=== PATIENT | female | born 1955 | race Caucasian/White ===

== ENCOUNTER 2020-04-01 09:00 | Outpatient (RCR) | payer OTHER, SELFPAY ==
--- NOTE | 2020-04-22 11:18 | MHC.PT.DC ---
[facility] [place] [facility] [place] [facility] [place] [facility] [address] Travon Murcia 140 [facility] [phone] F: [phone] F: [phone] F: [phone] F: [phone] Physical Therapy Discharge Report Diagnosis: TKA Date of Surgery: 01/16/2020 Date of Evaluation: 02/11/20 Date of Discharge: 04/22/20 Treatments to Date: 15 Cancellations to Date: 2 No Shows to Date: 0 Discharge Status: Improved Function Independent with HEP Discharge Summary: The patient has followed up with orthopedics who has cleared her for work with no restrictions. She was given a home exercise program that focused on quadriceps strengthening as that is what she struggled with the most during physical therapy. She has improved in her strength, range of motion, and functional mobility. She is discharged from this physical therapy plan of care. Electronically signed by: Penny Barriga PT, DPT Please sign and return to therapist. Thank you for your referral.
== END 2020-04-22 11:27 | disposition other institution (70) ==
LOC: HO.PT 09:00
PROVIDERS: Visit Provider Physician Assistant
DX: Z47.1 Aftercare following joint replacement surgery (principal); Z96.651 Presence of right artificial knee joint
CPT/HCPCS: 97110; 97530

== ENCOUNTER 2020-04-10 10:00 | Outpatient (RCR) | payer OTHER, SELFPAY | END 2020-04-22 11:26 | disposition other institution (70) | LOC: HO.PT 10:00 | PROVIDERS: PCP Internal Medicine; Visit Provider Physician Assistant | DX: Z47.1 Aftercare following joint replacement surgery (principal); Z96.651 Presence of right artificial knee joint ==

== ENCOUNTER 2020-06-26 08:45 | Outpatient (REF) | payer OTHER, SELFPAY ==
--- NOTE | 2020-06-26 13:28 | XR_ITS ---
EXAMINATION: XR PELVIS CLINICAL INFORMATION: Pain. COMPARISON: 12/15/16. TECHNIQUE: AP view of the pelvis. FINDINGS: Severe degenerative changes are present in both hips more marked on the left. There is prominent joint space narrowing with subchondral bony sclerosis. Prominent marginal osteophytosis. There is subluxation of both hips more marked on the left. No acute abnormality. XR/XR pelvis 1-2V IMPRESSION: Severe degenerative changes both hips with interval progression from prior examination.
== END 2020-06-26 08:46 | disposition home or self-care (01) ==
LOC: HO.HOSX 08:45
PROVIDERS: Visit Provider Orthopaedic Surgery
DX: M25.552 Pain in left hip (principal); M25.551 Pain in right hip
CPT/HCPCS: 20610; 72170; J1040

== ENCOUNTER → 2020-09-15 13:55 | Outpatient (BNVA) | payer OTHER, SELFPAY | PROVIDERS: Visit Provider Orthopaedic Surgery ==

== ENCOUNTER 2020-10-31 08:26 | Outpatient (REF) | payer OTHER, SELFPAY ==
[2020-10-31 10:12] LABS: MANUAL DIFF FLAG NO
[2020-10-31 10:18] LABS: Basophils Percent Auto 0.5 % (0-2); Eosinophils Absolute Auto 0.1 X10*3/uL (0.0-0.4); Eosinophils Percent Auto 2.2 % (0-4); Hematocrit 37.4 % (37-47); Hemoglobin 12.3 g/dl (12.0-16.0); Imm Gran Abs Auto 0.01 X10*3/uL (0.00-0.03); Imm Gran Pct Auto 0.2 % (0.0-0.4); Lymphocytes Absolute Auto 2.1 X10*3/uL (1.2-4.9); Lymphocytes Percent Auto 34.9 % (20-40); Mean Corpuscular HGB Conc 32.9 g/dl (31.0-35.0); Mean Corpuscular Hemoglobin 30.8 pg (27.0-33.0); Mean Corpuscular Volume 93.5 fL (80-98); Mean Platelet Volume 10.4 fL (9.4-12.3); Monocytes Absolute Auto 0.4 X10*3/uL (0.1-1.2); Monocytes Percent Auto 6.6 % (2-11); Neutrophils Absolute Auto 3.3 X10*3/uL (2.0-8.3); Neutrophils Percent Auto 55.6 % (45-73); Platelet Count 220 X10*3/uL (160-400); Red Cell Distribution Width 12.7 % (11.0-16.0); White Blood Count 5.9 X10*3/uL (4.8-10.8)
[2020-10-31 10:36] LABS: Anion Gap 14 (12-20); Blood Urea Nitrogen 13 mg/dL (9-16); Calcium 9.4 mg/dL (8.4-10.2); Carbon Dioxide 26 mmol/L (22-29); Chloride 105 mmol/L (96-108); Estimated Glomerular Filt Rate > 60; Glucose Random 100 mg/dL (60-115); Sodium 141 mmol/L (135-145)
== END 2020-10-31 08:27 | disposition home or self-care (01) ==
LOC: HO.10HDL 08:26
PROVIDERS: Absent Provider Internal Medicine; Visit Provider Orthopaedic Surgery
DX: Z01.812 Encounter for preprocedural laboratory examination (principal)
CPT/HCPCS: 36415; 80048; 85025

== ENCOUNTER 2020-11-04 | Outpatient (REF) | payer OTHER, SELFPAY | END 2020-11-04 00:01 | disposition home or self-care (01) | LOC: HO.HOSX | PROVIDERS: Visit Provider Orthopaedic Surgery | DX: Z13.89 Encounter for screening for other disorder (principal) ==

== ENCOUNTER 2020-11-12 07:46 | Outpatient (REF) | payer OTHER, SELFPAY ==
--- NOTE | ~2020-11-12 | XR_ITS ---
EXAMINATION: XR HIP, LEFT CLINICAL INFORMATION: Left hip pain COMPARISON: Pelvis 11/04/2020 TECHNIQUE: Two views of the left hip. FINDINGS: There is moderate loss of left hip joint space with moderate periarticular spurring. The small bowel subchondral lucency superolateral femoral head. No visible fracture, dislocation or lytic process seen. The soft tissues are normal. XR/XR hip LT min 2V IMPRESSION: Moderate to severe degenerative arthritis left hip joint with moderate periarticular spurring and subchondral lucency. No visible acute fracture or dislocation seen.
== END 2020-11-12 07:47 | disposition home or self-care (01) ==
LOC: HO.HOSX 07:46
PROVIDERS: Visit Provider Physician Assistant
DX: Z01.818 Encounter for other preprocedural examination (principal); M16.12 Unilateral primary osteoarthritis, left hip; Z98.84 Bariatric surgery status
CPT/HCPCS: 73502

== ENCOUNTER 2020-11-18 08:17 | Inpatient (IN) | payer OTHER, SELFPAY ==
--- NOTE | 2020-11-04 | ECG_ITS ---
Test Reason : PREOP Blood Pressure : / mmHG Vent. Rate : 055 BPM Atrial Rate : 055 BPM P-R Int : 154 ms QRS Dur : 076 ms QT Int : 436 ms P-R-T Axes : 087 032 019 degrees QTc Int : 417 ms Sinus bradycardia Otherwise normal ECG When compared to the previous EKG of No significant changes seen Referred By: Nicolle Martino Electronically Signed By:Hima Jones
--- NOTE | 2020-11-04 12:22 | P.CONAN_ITS ---
Documented by User: Nicolle Peckney 11/17/20 09:32 HPI - Anesthesia Eval Consult details Narrative: 65yo F for Left Hip Total Replacement PCP cleared afib, no OAC PMFSH Active Problems Active Problems: All Active Problems (Updated 11/03/20 @ 10:09 by Sydnie Prasad) Total knee replacement status (Acute) Osteoarthritis of left hip (Acute) Past Medical History Medical History (Updated 11/12/20 @ 14:09 by Steffany Card PA-C) A-fib COVID-19 vaccine series completed History of cardioversion History of positive PPD On beta hina at home Osteoarthritis Family History Family History Father No problems noted. Mother No problems noted. Surgical History Surgical History (Updated 11/04/20 @ 14:06 by Sydnie Prasad) History of cardiac radiofrequency ablation History of total left knee replacement History of total right knee replacement Hx of section Hx of colonoscopy Hx of gastric bypass Social History Social History Are you a primary hospice spiritual care coordinator to a significant other at home: No Do you presently have visiting nurse or other home services: No Smoking Status: Former smoker Smoking Quit Date: 15 yrs ago Use of substances other than those prescribed or required for medical reasons: No Have you been hit, kicked, punched, or otherwise hurt by someone within the past year? 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 Allergies Allergy/AdvReac Type Severity Reaction Status Date / Time Penicillins [PENICILLINS] Allergy Intermediate TONGUE Verified 11/03/20 09:55 SWELLING,SKIN PEELING ON FINGERS Home Medications Medication Instructions Recorded Confirmed Last Taken Type metoprolol succinate 25 mg 25 mg PO DAILY 04/10/20 11/18/20 11/18/20 History tablet,extended release 24 hr Exam Exam Date and Time: November 04, 2020 1222 Pertinent Lab Results Pertinent Lab Results: Laboratory Tests 10/31/20 10/31/20 08:20 08:20 WBC 5.9 Hgb 12.3 Hct 37.4 Plt Count 220 Sodium 141 Potassium 4.0 Chloride 105 Carbon Dioxide 26 BUN 13 Creatinine 0.70 Lab Results 11/04/20 11/04/20 Range/Units 15:55 Unknown Nasal Screen MRSA (PCR) NEGATIVE (Negative) Nasal S. aureus Screen NEGATIVE (Negative) Nasal MRSA/S.aureus Interp SEE NOTE Blood Type O Positive Antibody Screen NEGATIVE Narrative Narrative: EKG 10/2020 Vent. Rate : 055 BPM Atrial Rate : 055 BPM P-R Int : 154 ms QRS Dur : 076 ms QT Int : 436 ms P-R-T Axes : 087 032 019 degrees QTc Int : 417 ms Sinus bradycardia Otherwise normal ECG When compared to the previous EKG of No significant changes seen Airway Mallampati Class: I TM Dist: >3cm Neck ROM: Full Loose/Missing/Broken Teeth: Yes (Missing molars) Heart: RRR Lungs: CTAB Assessment and Plan Assessment Anesthesia Assessment: Anesthesia Plan Discussed (GA vs Spinal, ? Nerve block) and PAT Visit Documented by User: Brayan Rasheed MD 11/18/20 11:06 [facility] Past Medical History Medical History (Updated 11/12/20 @ 14:09 by Steffany Card PA-C) A-fib COVID-19 vaccine series completed History of cardioversion History of positive PPD On beta hina at home Osteoarthritis Family History Family History Father No problems noted. Mother No problems noted. Surgical History Surgical History (Updated 11/04/20 @ 14:06 by Sydnie Prasad) History of cardiac radiofrequency ablation History of total left knee replacement History of total right knee replacement Hx of section Hx of colonoscopy Hx of gastric bypass Social History Social History Are you a primary hospice spiritual care coordinator to a significant other at home: No Do you presently have visiting nurse or other home services: No Smoking Status: Former smoker Smoking Quit Date: 15 yrs ago Use of substances other than those prescribed or required for medical reasons: No Have you been hit, kicked, punched, or otherwise hurt by someone within the past year? 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 Allergies Allergy/AdvReac Type Severity Reaction Status Date / Time Penicillins [PENICILLINS] Allergy Intermediate TONGUE Verified 11/03/20 09:55 SWELLING,SKIN PEELING ON FINGERS Home Medications Medication Instructions Recorded Confirmed Last Taken Type metoprolol succinate 25 mg 25 mg PO DAILY 04/10/20 11/18/20 11/18/20 History tablet,extended release 24 hr Assessment and Plan Assessment Anesthesia Assessment: Anesthesia Plan Discussed and Chart Reviewed Final Anesthetic Review NPO: Yes ASA Class: III Final Preanesthetic Review: No Changes in Pt Med Stat, Meds/Allgs Chart Reviewed, Consent Obtained/Reviewed and Anes Risks/Benef Reviewed Patient Risk: Intermediate Procedure Risk: Low Anesthetic Plan Anesthetic Plan: MAC: and Spinal Disposition: Standard PACU
[2020-11-04 14:07] VITALS: BMI 31.3
[2020-11-04 14:12] VITALS: BP 127/80; PULSE 96; RESP 20; O2SAT 97
[2020-11-05 09:46] LABS: MRSA Nasal PCR NEGATIVE (Negative); SA Nasal PCR NEGATIVE (Negative)
--- NOTE | 2020-11-05 10:36 | HP_ITS ---
DATE OF SERVICE: 11/18/2020 HISTORY OF PRESENT ILLNESS: The patient is a 65-year-old female scheduled for left hip replacement with Dr. Asencio on November 18. ALLERGIES: THE PATIENT LISTS AN ALLERGY TO PENICILLIN. MEDICATIONS: Her present medications are metoprolol-XL 25 mg once a day and metronidazole cream as needed. PAST MEDICAL HISTORY: Significant for both knees replaced; arthritis in both hips; hypertension; rosacea; history of atrial fibrillation, status post ablation; history gastric sleeve procedure; x2; osteoarthritis; hay fever. FAMILY HISTORY: Mother at 89. Father at 72. Two sisters, 1 has schizophrenia. Two children in good health. SOCIAL HISTORY: She is , lives alone. REVIEW OF SYSTEMS: Weight is up 6 pounds. No fevers or chills. No chest pains or palpitations. No shortness of breath. No peripheral edema. No headaches or dizziness. No heartburn or stomach pains. No dysuria. She has pain in both hips. Sleeping is disrupted because of the arthritis in the hips. No confusion or mental status changes. Appetite is normal. Some allergic rhinitis. No skin rashes. No bleeding problems. PHYSICAL EXAMINATION: GENERAL: She is awake and alert, in no distress. VITAL SIGNS: Temperature is 98.1, pulse 67, respiratory rate 12, blood pressure 116/84, oxygen is 99% on room air. Weight is 222. Height is 5 feet 9 inches. HEENT: Pupils equal. TMs clear. Pharynx clear. NECK: Supple. No lymph nodes, bruits, or masses. HEART: Sounds S1 and S2. Regular rate. LUNGS: Clear. ABDOMEN: Soft, nontender. Positive bowel sounds. No HSM. EXTREMITIES: No clubbing, cyanosis, or edema. 1+ pulses. NEUROLOGICAL: Exam is nonfocal. Cranial nerves II through XII are intact. She does not smoke. ASSESSMENT AND PLAN: She is medically stable for the proposed procedure. Labs were drawn in the hospital and an EKG is being done within the next week or so, pending review of those. She is medically stable for the proposed procedure. I will be available if there are any medical questions. Thank you very much. Eduardo Daigle MD FC/MODL / [id number]
[2020-11-18] VITALS (12 sets, daily range): BP systolic 91–125; BP diastolic 50–73; PULSE 45–85; RESP 12–18; TEMP 36.1–36.7; O2SAT 96–100
--- NOTE | ~2020-11-18 | XR_ITS ---
EXAMINATION: XR PELVIS CLINICAL INFORMATION: Post left hip replacement COMPARISON: Previous x-ray 11/12/2020 TECHNIQUE: AP view of the pelvis. FINDINGS: There is a new left hip replacement in satisfactory position. No fracture or dislocation is seen. There are postoperative changes to the soft tissues. There is arthritis at the right hip joint. XR/XR pelvis 1-2V IMPRESSION: Satisfactory appearance of left hip replacement.
--- NOTE | ~2020-11-18 | XR_ITS ---
EXAMINATION: XR PELVIS CLINICAL INFORMATION: Arthritis COMPARISON: Previous x-ray May 2020 TECHNIQUE: AP view of the pelvis. FINDINGS: There is bilateral hip arthritis with joint space narrowing, osteophyte formation and on the left, subchondral cyst formation. Bones of the pelvis are unremarkable. There are degenerative changes of the lower lumbar spine. Soft tissues are unremarkable. XR/XR pelvis 1-2V IMPRESSION: Bilateral hip arthritis, left greater than right
[2020-11-18 09:12] LABS: COVID-19 Test Negative (Negative)
[2020-11-18] MEDS: Gabapentin 600 MG TABLET PO (09:21)
[2020-11-18] MEDS: oxyCODONE HCl ER 10 MG TAB.ER.12H PO ×2 (09:21→20:38)
[2020-11-18] MEDS: vancomycin HCL 1,000 MG in 0.9 % Sodium Chloride 250 ML 270 MG IV ×2 (09:46→20:38)
--- NOTE | 2020-11-18 10:34 | MHC.SHP ---
Pre-Procedural Eval Section A The patient is an INPATIENT: No Changes since office visit: Yes Patient answered all questions; No Cold of Flu in the past 2 weeks, No New Medical Problems and No Changes in Medication The History & Physical has been completed within 30 days and I have reviewed it.: Yes Section B Chief Complaint: S/P LEFT TOTAL HIP REPLACEMENT Allergies: Allergies Allergy/AdvReac Type Severity Reaction Status Date / Time Penicillins [PENICILLINS] Allergy Intermediate TONGUE Verified 11/03/20 09:55 SWELLING,SKIN PEELING ON FINGERS Plan I have reviewed the history and physical and performed a pertinent physical examination on my patient. No changes have occurred unless specified.
--- NOTE | 2020-11-18 13:13 | P.BOP_ITS ---
Brief Operative Note Date of Service: 11/18/20 Pre-op diagnosis: left hip OA Post-op diagnosis: same Procedure: Left DON Implants: Cornelius 54 trident with 20 deg liner and accolade2#7 127deg stem with + 5 36 ceramic head Surgeon: Yohan Asencio MD Anesthesia: GETA, local and spinal Was an Fire Sprinkler Installer used for this Procedure?: Yes Fire Sprinkler Installer: Steffany Card Estimated blood loss (mL): 200 IV fluids (mL): 1,200 Pathology: other Condition: stable Disposition: PACU
--- NOTE | 2020-11-18 13:46 | W.PM.OPN ---
Operative Note Operative Note Date of Service: 11/18/20 Narrative: Pre-op diagnosis: left hip OA Post-op diagnosis: same Procedure: Left DON Implants: Turpin 54 trident with 20 deg liner and accolade2#7 127deg stem with + 5 36 ceramic head Surgeon: Yohan Asencio MD Anesthesia: GETA, local and spinal Was an Air Quality Specialist used for this Procedure?: Yes Air Quality Specialist: Steffany Card Estimated blood loss (mL): 200 IV fluids (mL): 1,200 Pathology: other Condition: stable Disposition: PACU Procedure in detail: Patient was brought into the operating room and placed in a right lateral decubitus position. All bony prominences were well padded and the limb was prepped and draped in standard sterile fashion. Time-out was called to identify proper site procedure proper surgeon IV antibiotics and 1 g of trans to make acid were administered. I began by making a curvilinear incision over the posterolateral aspect of the greater trochanter. Dissection was taken down to the tensor fascia which was incised in line with the incision and a Charnley retractor was placed. Hip was internally rotated and the external rotators were identified. The vessels were cauterized and a full-thickness capsular/external rotator layer was developed starting just proximal to the piriformis. Dull Hohmann retractor was placed underneath the neck in the hip was dislocated. A neck cut was made 1 cm proximal to the lesser trochanter and the head and neck were removed and measured on the back table. The head was deformed and eburnated. I placed an anterior and a posterior acetabular retractors and performed a labrectomy. I cauterized the fovea and reamed to the inner table then sequentially reamed up to a size 56 and impacted a 56 cup at approximately 45 degrees of inclination and 25 degrees of version. I then placed a 20 degree posterior lipped liner and turned my attention to the femur. All I used cautery to identify the piriformis start site and used this as a starting point for my dago cutter. I then used a Charnley awl to identify the canal and a curved curette to remove the lateral bone. I then sequentially broached in the patient's natural version to a size ____ had and placed my trial implants. I took the hip through range of motion with a +0 head and I was very happy with the stability and length. Therefore removed all instrumentation copiously irrigated placed my final femoral implant. I again took the hip through range of motion and was happy with the stability and length and rain using a +0 head and so my final femoral head was placed. I then irrigated for 3 minutes with iodine and placed 1 g of local TXA. I then performed a capsular closure with FiberWire, Krista's fascia with 0 Vicryl, subcuticular with 2-0 vicryl and skin with carl. Patient was placed into a sterile dressing. Radiographs were obtained at the completion of the case and I was happy with the component position. Patient was extubated brought to the recovery room in stable condition.
[2020-11-18] MEDS: Dextrose 5 % and 0.45 % NaCl 1,000 ML 80 ML IVCONT (15:57)
[2020-11-18] MEDS: 0.9 % Sodium Chloride Flush 3 ML SYRINGE IVFLUSH (15:57)
--- NOTE | 2020-11-18 16:08 | PM.IMCN ---
History of Present Illness Data of Consult Service Date: 11/18/20 Requesting physician: Yohan Asencio Primary Care Provider: Flo Daigle MD [facility] Reason for consult: Post-operative medical management This is a 65-year-old female with a past medical history of paroxysmal AFib, status post ablation not on any anticoagulation, obesity status post gastric sleeve procedure about 5 years ago, osteoarthritis status post bilateral knee replacements who is postop from a elective left hip replacement. Medical services are consulted for management of her chronic medical issues as well as any acute issues that arise. Patient is seen examined on med surge. She denies any left hip pain at this time. In fact denies any complaints at all. Review of Systems Review of Systems: General - no fevers or chills Cardiovascular - no chest pain Respiratory - no shortness of breath or cough Abdominal- no abdominal pain, nausea, vomiting, diarrhea Ext - pain controlled PMF Medical History (Updated 11/18/20 @ 16:27 by Azael Mc MD) A-fib COVID-19 vaccine series completed History of cardioversion History of positive PPD On beta hina at home Osteoarthritis Family History Father No problems noted. Mother No problems noted. Surgical History (Updated 11/04/20 @ 14:06 by Sydnie Prasad) History of cardiac radiofrequency ablation History of total left knee replacement History of total right knee replacement Hx of section Hx of colonoscopy Hx of gastric bypass Social History Are you a primary career development coordinator/teacher to a significant other at home: No Do you presently have visiting nurse or other home services: No Smoking Status: Former smoker Smoking Quit Date: 15 yrs ago Use of substances other than those prescribed or required for medical reasons: No Have you been hit, kicked, punched, or otherwise hurt by someone within the past year? 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 Allergies Allergy/AdvReac Type Severity Reaction Status Date / Time Penicillins [PENICILLINS] Allergy Intermediate TONGUE Verified 11/03/20 09:55 SWELLING,SKIN PEELING ON FINGERS Active Medications: Current Medications Generic Name Dose Route Start Last Admin Trade Name Freq PRN Reason Stop Dose Admin Acetaminophen 650 mg 11/18/20 15:33 Acetaminophen 325 Mg Tablet PO Q6H PRN Pain, Mild (Pain Scale 1-3) Celecoxib 200 mg 11/18/20 21:00 Celecoxib 200 Mg Capsule PO BID [facility] Docusate Sodium 100 mg 11/18/20 21:00 Docusate Sodium 100 Mg Capsule PO BID [facility] Hydromorphone HCl 0.25 mg 11/18/20 15:33 Hydromorphone Hcl 0.5 Mg/0.5 Ml Syringe IVPUSH Q4H PRN Pain, Severe (Pain Scale 7-10) Dextrose/Sodium Chloride 1,000 mls @ 80 mls/hr 11/18/20 15:33 11/18/20 15:57 D51/2ns IVCONT 80 mls/hr .[id number] [facility] Administration Vancomycin HCl 1,000 mg/ 270 mls @ 270 mls/hr 11/18/20 20:00 Sodium Chloride IV 11/18/20 20:59 POSTOP ONE Naloxone HCl 0.2 mg 11/18/20 15:33 Naloxone Hcl 0.4 Mg/Ml Vial IVPUSH Q2M PRN Excessive sedation or RR < 8 Ondansetron HCl 4 mg 11/18/20 15:33 Ondansetron Hcl 4 Mg/2 Ml Vial IVPUSH Q8H PRN Nausea and Vomiting Oxycodone HCl 5 mg 11/18/20 15:33 Oxycodone Hcl Immed Release 5 Mg Tablet PO Q4H PRN Pain, Moderate (Pain Scale 4-6 Oxycodone HCl 10 mg 11/18/20 21:00 Oxycodone Hcl Er 10 Mg Tab.Er.12h PO BID [facility] Sodium Chloride 3 ml 11/18/20 16:00 11/18/20 15:57 0.9 % Sodium Chloride Flush 3 Ml Syringe IVFLUSH 3 ml QSHIFT [facility] Administration Home Medications Medication Instructions Recorded Confirmed Last Taken Type metoprolol succinate 25 mg 25 mg PO DAILY 04/10/20 11/18/20 11/18/20 History tablet,extended release 24 hr Physical Exam Vital Signs and Narrative: Vital Signs: Last Vital Signs Temp 97.1 F 11/18/20 15:22 Pulse 51 11/18/20 15:22 Resp 17 11/18/20 15:22 BP 110/66 11/18/20 15:22 Pulse Ox 100 11/18/20 15:22 Body Mass Index 31.3 Const: Other: Constitutional - Awake and Alert, No apparent distress Eyes - PERRLA, EOMI Cardiovascular - S1S2, RRR, No edema Respiratory - Normal lung expansion, Normal respiratory effort, No respiratory distress, CTA bilaterally Gastrointestinal - NT / ND; +BS; No rebound or guarding - No CVA tenderness Extremities - no calf tenderness bilaterally, no swelling Musculoskeletal - Normal inspection, normal ROM Skin - Warm/Dry Neurological - Alert & oriented x3, No focal deficit Psychological - Appropriate affect Results Labs Labs: Laboratory Results - last 24 hr 11/18/20 08:41 COVID-19 ([facility]) Negative COVID-19 Clin Com See Note Imaging Radiologist's Impressions: Impressions Pelvis X-Ray 11/18/20 11:49 IMPRESSION: Satisfactory appearance of left hip replacement. Assessment and Plan (1) PAF (paroxysmal atrial fibrillation): Status: Acute This is a 65-year-old female with a past medical history of paroxysmal AFib, gastric sleeve, osteoarthritis who is admitted under the Orthopedic Services for elective left hip replacement. Medical services are consulted for management of her chronic medical issues along with any acute issues that may arise. At this time she is medically stable 1. Paroxysmal AFib Continue metoprolol 25 mg daily Currently appears to be in sinus on exam 2.OA s/p L DON mgmt per ortho monitor for post op complications DVT ppt - per ortho Medically stable, will follow peripherally. If any further questions re-consult or send message on [facility].
[2020-11-18] MEDS: HYDROmorphone HCl 0.5 MG/0.5 ML SYRINGE 0.25 MG IVPUSH (18:38)
[2020-11-18] MEDS: Docusate Sodium 100 MG CAPSULE PO (20:38)
[2020-11-18] MEDS: Celecoxib 200 MG CAPSULE PO (20:38)
[2020-11-19] VITALS (10 sets, daily range): BP systolic 80–119; BP diastolic 43–60; PULSE 68–78; RESP 16–20; TEMP 36.1–37.4; O2SAT 96–98
[2020-11-19] MEDS: oxyCODONE HCl Immed Release 5 MG TABLET PO ×2 (03:37→13:54)
[2020-11-19] MEDS: Acetaminophen 325 MG TABLET 650 MG PO ×2 (03:37→09:03)
[2020-11-19] MEDS: Dextrose 5 % and 0.45 % NaCl 1,000 ML 80 ML IVCONT ×2 (04:51→18:34)
[2020-11-19 06:13] LABS: MANUAL DIFF FLAG NO
[2020-11-19 06:34] LABS: Basophils Percent Auto 0.2 % (0-2); Eosinophils Percent Auto 0.3 % (0-4); Hematocrit 28.7 % (37-47); Hemoglobin 9.7 g/dl (12.0-16.0); Imm Gran Abs Auto 0.03 X10*3/uL (0.00-0.03); Imm Gran Pct Auto 0.3 % (0.0-0.4); Lymphocytes Absolute Auto 1.8 X10*3/uL (1.2-4.9); Lymphocytes Percent Auto 20.6 % (20-40); Mean Corpuscular HGB Conc 33.8 g/dl (31.0-35.0); Mean Corpuscular Hemoglobin 30.7 pg (27.0-33.0); Mean Corpuscular Volume 90.8 fL (80-98); Mean Platelet Volume 10.1 fL (9.4-12.3); Monocytes Absolute Auto 0.8 X10*3/uL (0.1-1.2); Neutrophils Absolute Auto 6.1 X10*3/uL (2.0-8.3); Neutrophils Percent Auto 69.6 % (45-73); Platelet Count 173 X10*3/uL (160-400); Red Blood Count 3.16 X10*6/uL (4.20-5.50); Red Cell Distribution Width 12.8 % (11.0-16.0); White Blood Count 8.7 X10*3/uL (4.8-10.8)
[2020-11-19 06:52] LABS: Anion Gap 13 (12-20); Blood Urea Nitrogen 10 mg/dL (9-16); Calcium 8.1 mg/dL (8.4-10.2); Carbon Dioxide 25 mmol/L (22-29); Chloride 102 mmol/L (96-108); Creatinine Clr Calc Pharmacy 111.8; Estimated Glomerular Filt Rate > 60; Glucose Fasting 112 mg/dL (60-99); Potassium 3.8 mmol/L (3.3-5.1); Sodium 136 mmol/L (135-145)
--- NOTE | 2020-11-19 07:51 | PM.PNORT ---
Subjective Subjective Date of Service: 11/19/20 Interval history: POD 1 s/p LT DON no overnight events resting in bed, has been out of bed ambulating denies sob, cp, palpitations Physical Exam Vital Signs: Vital Signs: Last Vital Signs Temp 97.8 F 11/19/20 03:41 Pulse 73 11/19/20 07:34 Resp 16 11/19/20 03:41 BP 96/60 11/19/20 07:34 Pulse Ox 98 11/19/20 07:34 Body Mass Index 31.3 Const: General: cooperative, healthy appearing and no acute distress Resp: Effort & Inspection: normal respiratory effort and able to speak in complete sentences Cardio: Rate: regular rate Peripheral pulses: Peripheral pulses 2+ throughout GI: Palpation (GI): Soft to palpation Skin: General skin exam: no rashes or lesions noted Extrem: Other: Left hip bandage clean dry and intact. No erythema or drainage. Mild swelling. Neurovascularly intact. Progress Note: A&P Assessment and plan (1) History of total left hip replacement: Status: Acute Assessment and Plan: Continue pain mgmnt Begin Aspirin for dvt ppx begin PT for LT DON Dispo planning-Pending PT eval, pain mgmnt Fall Risk Details Current Medications: Current Medications Generic Name Dose Route Start Last Admin Trade Name Freq PRN Reason Stop Dose Admin Acetaminophen 650 mg 11/18/20 15:33 11/19/20 03:37 Acetaminophen 325 Mg Tablet PO 650 mg Q6H PRN Administration Pain, Mild (Pain Scale 1-3) Celecoxib 200 mg 11/18/20 21:00 11/18/20 20:38 Celecoxib 200 Mg Capsule PO 200 mg BID [facility] Administration Docusate Sodium 100 mg 11/18/20 21:00 11/18/20 20:38 Docusate Sodium 100 Mg Capsule PO 100 mg BID [facility] Administration Hydromorphone HCl 0.25 mg 11/18/20 15:33 11/18/20 18:38 Hydromorphone Hcl 0.5 Mg/0.5 Ml Syringe IVPUSH 0.25 mg Q4H PRN Administration Pain, Severe (Pain Scale 7-10) Dextrose/Sodium Chloride 1,000 mls @ 80 mls/hr 11/18/20 15:33 11/19/20 04:51 D51/2ns IVCONT 80 mls/hr .[id number] [facility]Y Administration Metoprolol Succinate 25 mg 11/19/20 09:00 Metoprolol Succinate Er 25 Mg Tab.Er.24h PO DAILY [facility] Protocol Naloxone HCl 0.2 mg 11/18/20 15:33 Naloxone Hcl 0.4 Mg/Ml Vial IVPUSH Q2M PRN Excessive sedation or RR < 8 Ondansetron HCl 4 mg 11/18/20 15:33 Ondansetron Hcl 4 Mg/2 Ml Vial IVPUSH Q8H PRN Nausea and Vomiting Oxycodone HCl 5 mg 11/18/20 15:33 11/19/20 03:37 Oxycodone Hcl Immed Release 5 Mg Tablet PO 5 mg Q4H PRN Administration Pain, Moderate (Pain Scale 4-6 Oxycodone HCl 10 mg 11/18/20 21:00 11/18/20 20:38 Oxycodone Hcl Er 10 Mg Tab.Er.12h PO 10 mg BID [facility] Administration Sodium Chloride 3 ml 11/18/20 16:00 11/19/20 00:00 0.9 % Sodium Chloride Flush 3 Ml Syringe IVFLUSH Not Given QSHIFT [facility] Time Spent With Patient Time: Total time spent is greater than 50% in coordination of care (as documented) at patient's floor/unit and/or counseling patient: Time with patient: less than 15 minutes Procedures Date of Service Date of Service: 11/19/20
[2020-11-19] MEDS: oxyCODONE HCl ER 10 MG TAB.ER.12H PO (09:04)
[2020-11-19] MEDS: Celecoxib 200 MG CAPSULE PO ×2 (09:04→19:59)
[2020-11-19] MEDS: Docusate Sodium 100 MG CAPSULE PO ×2 (09:04→19:59)
[2020-11-19] MEDS: Aspirin 325 MG TABLET PO ×2 (09:04→19:59)
[2020-11-19] MEDS: ondansetron HCL 4 MG/2 ML VIAL IVPUSH (09:37)
--- NOTE | 2020-11-19 10:26 | HO.PM.IMPN ---
Subjective Subjective Date of Service: 11/19/20 Interval History: feeling well Cardiovascular Cardiovascular: Reports no additional cardiovascular complaints Respiratory Respiratory: Reports no additional respiratory complaints Physical Exam Vital Signs: Vital Signs: Last Vital Signs Temp 97.6 F 11/19/20 08:00 Pulse 70 11/19/20 08:00 Resp 17 11/19/20 08:00 BP 102/52 L 11/19/20 09:34 Pulse Ox 98 11/19/20 08:00 Body Mass Index 31.3 General: AO X 3, no acute distress Resp: CTA bilateral CVS: S1,S2,RRR GI: soft, non tender, non distended Neuro: motor grossly intact Psych: appropriate affect Objective Data Current Medications Generic Name Dose Route Start Last Admin Trade Name Freq PRN Reason Stop Dose Admin Acetaminophen 650 mg 11/18/20 15:33 11/19/20 09:03 Acetaminophen 325 Mg Tablet PO 650 mg Q6H PRN Administration Pain, Mild (Pain Scale 1-3) Aspirin 325 mg 11/19/20 10:00 11/19/20 09:04 Aspirin 325 Mg Tablet PO 325 mg BID SHAYY Administration Celecoxib 200 mg 11/18/20 21:00 11/19/20 09:04 Celecoxib 200 Mg Capsule PO 200 mg BID SHAYY Administration Docusate Sodium 100 mg 11/18/20 21:00 11/19/20 09:04 Docusate Sodium 100 Mg Capsule PO 100 mg BID SHAYY Administration Hydromorphone HCl 0.25 mg 11/18/20 15:33 11/18/20 18:38 Hydromorphone Hcl 0.5 Mg/0.5 Ml Syringe IVPUSH 0.25 mg Q4H PRN Administration Pain, Severe (Pain Scale 7-10) Dextrose/Sodium Chloride 1,000 mls @ 80 mls/hr 11/18/20 15:33 11/19/20 04:51 D51/2ns IVCONT 80 mls/hr .[id number] SHAYY Administration Metoprolol Succinate 25 mg 11/19/20 09:00 11/19/20 09:12 Metoprolol Succinate Er 25 Mg Tab.Er.24h PO Not Given DAILY SHAYY Protocol Naloxone HCl 0.2 mg 11/18/20 15:33 Naloxone Hcl 0.4 Mg/Ml Vial IVPUSH Q2M PRN Excessive sedation or RR < 8 Ondansetron HCl 4 mg 11/18/20 15:33 11/19/20 09:37 Ondansetron Hcl 4 Mg/2 Ml Vial IVPUSH 4 mg Q8H PRN Administration Nausea and Vomiting Oxycodone HCl 5 mg 11/18/20 15:33 11/19/20 03:37 Oxycodone Hcl Immed Release 5 Mg Tablet PO 5 mg Q4H PRN Administration Pain, Moderate (Pain Scale 4-6 Oxycodone HCl 10 mg 11/18/20 21:00 11/19/20 09:04 Oxycodone Hcl Er 10 Mg Tab.Er.12h PO 10 mg BID SHAYY Administration Sodium Chloride 3 ml 11/18/20 16:00 11/19/20 09:05 0.9 % Sodium Chloride Flush 3 Ml Syringe IVFLUSH Not Given QSHIFT [facility] Labs CBC & Chem 7: 11/19/20 05:53 11/19/20 05:53 Assessment and Plan (1) PAF (paroxysmal atrial fibrillation): Status: Acute Assessment and Plan: 65F presented for elective left DON pafib in NSR, not on AC due to low CHADSVASC continue toprol left don management per ortho
--- NOTE | 2020-11-19 13:34 | MHC.CM.PN ---
NURSE SUPPLY CHAIN ENGINEER NOTE ELECTRONIC MEDICAL RECORD REVIEWED ALONG WITH CASE DISCUSSED WITH STAFF NURSE AND HOSPITALIST AND ORTHOPEDIC SURGICAL PA. MET WITH PATIENT AND EXPLAINED THE ROLE OF THE NURSE SUPPLY CHAIN ENGINEER IN RELATION TO THE TRANSITION FROM HOSPIAL TO HOME, EDUCATED ABOUT THE IMPORTANCE O FHAVING A HCP. PATIENTS ADULT SON LIVES WITH HER AND SHE REPORTED SHE IS ON FMLA DUE TO HER SURGERY, SHE IS POST OP DAY 1 FOR L-DON, SHE REPORTED SHE IS INDEPENDENT IN ALLADLS AND MOBILITY BUT AT HER OWN PACE SECONDARY TO HER LIMITATIONS FROM ARTHRITIS M SHE HAS A-FIB BUT IS NOT ON ANY ANTICOAGULANTS. PATIENT IS PLANNING ON GOING HOME AND HAVING THE [facility] FOR HOME PHYSICAL THEAPRY ( SHE HAD THEM WITH HER LAST SURGERY ) THSI REFERRAL WAS INTIATED TO THEM ANTICIPATE D/C 11/20- AND ON ASA FOR ANTICOAGULANT DISCHARGE PLAN HOME WITH [facility] FOR HOME PT.
--- NOTE | 2020-11-19 13:50 | HO.POSTANES ---
Post Anesthesia Evaluation Post Anesthesia Evaluation Vital Signs: Vital Signs Temp Pulse Resp BP Pulse Ox 11/19/20 13:39 68 100/45 L 98 11/19/20 11:44 97.0 F 68 18 100/45 L 98 11/19/20 09:34 102/52 L 11/19/20 09:12 102/52 L 11/19/20 08:00 97.6 F 70 17 90/47 L 98 11/19/20 07:34 73 96/60 98 11/19/20 03:41 97.8 F 73 16 96/60 98 Anesthesia: General Mental Status: Awake Pain Control: Satisfactory Nausea/Vomiting: None Hydration: Adequate Anesthesia-Related Issues: No Anes. Related Issues
[2020-11-19] MEDS: 0.9 % Sodium Chloride 1,000 ML 999 ML IVCONT (16:01)
[2020-11-20] VITALS (11 sets, daily range): BP systolic 87–116; BP diastolic 47–67; PULSE 76–97; RESP 16–20; TEMP 36.3–37.6; O2SAT 95–98
[2020-11-20] MEDS: Dextrose 5 % and 0.45 % NaCl 1,000 ML 80 ML IVCONT (06:43)
[2020-11-20 06:46] LABS: Hematocrit 28.7 % (37-47); Hemoglobin 9.8 g/dl (12.0-16.0); Mean Corpuscular HGB Conc 34.1 g/dl (31.0-35.0); Mean Corpuscular Hemoglobin 32.1 pg (27.0-33.0); Mean Corpuscular Volume 94.1 fL (80-98); Mean Platelet Volume 10.6 fL (9.4-12.3); Platelet Count 169 X10*3/uL (160-400); Red Blood Count 3.05 X10*6/uL (4.20-5.50); Red Cell Distribution Width 13.3 % (11.0-16.0)
[2020-11-20 06:54] LABS: Anion Gap 11 (12-20); Blood Urea Nitrogen 6 mg/dL (9-16); Calcium 8.1 mg/dL (8.4-10.2); Carbon Dioxide 28 mmol/L (22-29); Chloride 106 mmol/L (96-108); Creatinine Clr Calc Pharmacy 108.4; Estimated Glomerular Filt Rate > 60; Glucose Fasting 116 mg/dL (60-99); Potassium 3.7 mmol/L (3.3-5.1); Sodium 141 mmol/L (135-145)
[2020-11-20] MEDS: Aspirin 325 MG TABLET PO (08:14)
[2020-11-20] MEDS: 0.9 % Sodium Chloride Flush 3 ML SYRINGE IVFLUSH (08:14)
[2020-11-20] MEDS: Docusate Sodium 100 MG CAPSULE PO (08:14)
[2020-11-20] MEDS: ondansetron HCL 4 MG/2 ML VIAL IVPUSH (08:14)
[2020-11-20] MEDS: oxyCODONE HCl ER 10 MG TAB.ER.12H PO (08:14)
[2020-11-20] MEDS: Celecoxib 200 MG CAPSULE PO (08:14)
--- NOTE | 2020-11-20 08:26 | P.DS_ITS ---
DS: Providers Provider Date of Service: 11/20/20 Date of admission: 11/18/20 08:17 Primary care physician: Flo Gao MD Consults: 11/18/20 15:33 Consult to Hospitalist Routine Consulting Provider: Hospitalist Reason For Exam: post opmedical management DS: Diagnosis Discharge Diagnosis (1) History of total left hip replacement: Status: Acute Problem details: This is a 65-year-old female who presented to the office with ongoing left hip pain. She had failed all conservative measures and continued to have difficulty with ambulation and daily activities therefore she consented to move forward with left total hip arthroplasty. DS: Medications Discharge Medications Home Medications: Home Medications Medication Instructions Recorded Confirmed metoprolol succinate 25 mg 25 mg PO DAILY 04/10/20 11/18/20 tablet,extended release 24 hr DS: Summary Hospital Course Hospital Course: The patient underwent a successful arthroplasty, was transferred to PACU and then to the floor to recover. During their stay, their vitals were stable, afebrile at 99.1. Labs were unremarkable, H/H 9.8/28.7. POD 1 She was started on ASA 325 mg tabs bid for DVT ppx, they also received PT/OT services twice a day. Prior to discharge she received 2 uits PRBCs and their dressing was changed, incision clean dry and intact, new Aquacel dressing applied and the plan was to be discharged home with VNA services Time Spent with Patient Time attestation: Total time spent providing and/or coordinating discharge services: Discharge coordination time: Less than 30 minutes Quality: Stroke Does the patient have a stroke diagnosis?: No Physical Exam Vital Signs: Vital Signs: Last Vital Signs Temp 99.6 F 11/20/20 07:47 Pulse 97 11/20/20 08:02 Resp 18 11/20/20 07:47 BP 106/63 11/20/20 08:02 Pulse Ox 98 11/20/20 08:02 Body Mass Index 31.3 Const: General: cooperative, healthy appearing and no acute distress Resp: Effort & Inspection: normal respiratory effort and able to speak in complete sentences Cardio: Rate: regular rate Peripheral pulses: Peripheral pulses 2+ throughout GI: Palpation (GI): Soft to palpation Skin: General skin exam: no rashes or lesions noted Extrem: Other: left hip incision clean dry and intact. [place] intact. No erythema or effusion. Calf supple nontender. Neurovascularly intact. DS: Data Data Completed and Pending Pending studies at discharge: Pending at discharge 11/18/20 12:46 Surgical [PTH] Routine Labs on day of discharge: Laboratory Results - last 24 hr 11/20/20 11/20/20 05:44 05:44 WBC 10.0 RBC 3.05 L Hgb 9.8 L Hct 28.7 L MCV 94.1 MCH 32.1 MCHC 34.1 RDW 13.3 Plt Count 169 MPV 10.6 Absolute Nucleated RBC 0.000 Nucleated RBC % (auto) 0.0 Sodium 141 Potassium 3.7 Chloride 106 Carbon Dioxide 28 Anion Gap 11 L BUN 6 L Creatinine 0.66 Estim Creat Clear Calc 108.4 Estimated GFR > 60 Fasting Glucose 116 H Calcium 8.1 L Discharge Plan Discharge Patient Disposition: Home Health Service Discharge Diagnosis: s/p LT DON Referrals: [facility] [Outside] - 1 Day (HOME WITH [facility] FOR HOME [facility] THE[facility] TO START 11/21/20 IF YOU DO NOT HEAR FROM THEM BY 12 NOON THEN PLEEASE CALL [facility] AT THE ABOVE NUMBER AND ON WEEKENDS IF YOU NEED TO REACH SOME ONE THERE IS A ANSWERING SERVICES AND YOU CAN ASK FOR THE DIRECTOR OF PHYSICIAN PRACTICES PHYSICAL THEARPY PCP DR GAO PLEASE [facility] FO[facility] UP [facility] ) Nohemi Juarez PA-C [Physician Freight Team Associate] - 2 Weeks (12/05/20 12:30 [facility] Nohemi Juarez PA-C) Discharge Medications: New acetaminophen 325 mg Tablet 650 mg PO Q6H PRN (Reason: Pain, Mild (Pain Scale 1-3)) 30 Days Qty: 240 RF: 0 aspirin 325 mg Tablet 325 mg PO BID 42 Days Qty: 84 RF: 0 docusate sodium 100 mg Capsule 100 mg PO BID 14 Days Qty: 28 RF: 0 oxycodone 5 mg Tablet 5 mg PO Q4H PRN (Reason: Pain, Moderate (Pain Scale 4-6) 7 Days Qty: 42 RF: 0 Discharge Orders: Discharge Order (Routine); Ordered 11/20/20 Ordered By: Steffany Card Diet: regular diet Activity on Discharge: Use cane or walker Stand Alone Forms: Patient Portal Discharge page Care Plan Goals: Restore function of joint Health Concerns: None Plan of Treatment: Physical Therapy Pain management DVT prophylaxis Assessment: * Physical Therapy for Total knee arthroplasty: gait training, ROM 0-12, quad strength * Limit stair climbing * No showering, no tub bath-keep dressing clean, dry and intact * No driving x6 weeks * Continue Aspirin twice a day x 6 weeks * Follow up with [facility] in 2 weeks Discharge Date/Time: 11/20/20 16:53
--- NOTE | 2020-11-20 08:26 | W.MHC.F2F ---
Service Date Service Date: 11/20/20 Reasons for Services Reason for physical therapy: home safety and mobility, therapeutic exercises, restore joint function, gait/transfer training and ADL training Reason for occupational therapy: home safety and mobility, therapeutic exercises, restore joint function, gait/transfer training and ADL training Overseeing Care: Yohan Asencio Homebound: Leaving the home is medically contraindicated at this time without the asist of a device and/or another person due th the listed conditions above and below. Reason homebound: unsteady gait / fall risk, pain with ambulation, pain with transfers, poor balance / fall risk and unable to drive Homebound supporting statement: Pt. is considered home bound due to recent surgery. Unable to drive, poor balance, poor gait mechanics. Certification: Based on the above findings, I certify that this patient is confined to the home and needs intermittent senior care care, physical therapy and/or speech therapy, or continues to need occupational therapy. The patient is under my care, and I have initiated the establishment of the plan of care. The patient will be followed by a physician who will periodically review the plan of care.
--- NOTE | 2020-11-20 08:46 | MHC.CM.PN ---
NURSE BUSINESS CONTINUITY CONSULTANT NOTE ELECTRONIC MEDICAL RECORD REVIEWED ALONG WITH CASE DISCUSSED WITH STAFF NURSE AND ORTHOPEDIC SURGICAL PA.MET WITH PATIENT SHE IS AWARE THAT SHE WILL BE DISCHARGED HOME TODAY AND WILL BE D/C ON ANTICOAGULANT AND HAVE [facility] TO START 11/21/20 WITH THE [facility] FOR HOME PHYSICAL [facility] FAMILY PCP DR GAO
--- NOTE | 2020-11-20 10:09 | HO.PM.IMPN ---
Subjective Subjective Date of Service: 11/20/20 Interval History: tired Cardiovascular Cardiovascular: Reports no additional cardiovascular complaints Respiratory Respiratory: Reports no additional respiratory complaints Physical Exam Vital Signs: Vital Signs: Last Vital Signs Temp 99.6 F 11/20/20 07:47 Pulse 97 11/20/20 08:02 Resp 18 11/20/20 07:47 BP 106/63 11/20/20 08:02 Pulse Ox 98 11/20/20 08:02 Body Mass Index 31.3 General: AO X 3, no acute distress Resp: CTA bilateral CVS: S1,S2,RRR GI: soft, non tender, non distended Neuro: motor grossly intact Psych: appropriate affect Objective Data Current Medications Generic Name Dose Route Start Last Admin Trade Name Freq PRN Reason Stop Dose Admin Acetaminophen 650 mg 11/18/20 15:33 11/19/20 09:03 Acetaminophen 325 Mg Tablet PO 650 mg Q6H PRN Administration Pain, Mild (Pain Scale 1-3) Aspirin 325 mg 11/19/20 10:00 11/20/20 08:14 Aspirin 325 Mg Tablet PO 325 mg BID SHAYY Administration Celecoxib 200 mg 11/18/20 21:00 11/20/20 08:14 Celecoxib 200 Mg Capsule PO 200 mg BID SHAYY Administration Docusate Sodium 100 mg 11/18/20 21:00 11/20/20 08:14 Docusate Sodium 100 Mg Capsule PO 100 mg BID SHAYY Administration Hydromorphone HCl 0.25 mg 11/18/20 15:33 11/18/20 18:38 Hydromorphone Hcl 0.5 Mg/0.5 Ml Syringe IVPUSH 0.25 mg Q4H PRN Administration Pain, Severe (Pain Scale 7-10) Dextrose/Sodium Chloride 1,000 mls @ 80 mls/hr 11/18/20 15:33 11/20/20 06:43 D51/2ns IVCONT 80 mls/hr .[id number] SHAYY Administration Metoprolol Succinate 25 mg 11/19/20 09:00 11/19/20 09:12 Metoprolol Succinate Er 25 Mg Tab.Er.24h PO Not Given DAILY SHAYY Protocol Naloxone HCl 0.2 mg 11/18/20 15:33 Naloxone Hcl 0.4 Mg/Ml Vial IVPUSH Q2M PRN Excessive sedation or RR < 8 Ondansetron HCl 4 mg 11/18/20 15:33 11/20/20 08:14 Ondansetron Hcl 4 Mg/2 Ml Vial IVPUSH 4 mg Q8H PRN Administration Nausea and Vomiting Oxycodone HCl 5 mg 11/18/20 15:33 11/19/20 13:54 Oxycodone Hcl Immed Release 5 Mg Tablet PO 5 mg Q4H PRN Administration Pain, Moderate (Pain Scale 4-6 Oxycodone HCl 10 mg 11/18/20 21:00 11/20/20 08:14 Oxycodone Hcl Er 10 Mg Tab.Er.12h PO 10 mg BID SHAYY Administration Sodium Chloride 3 ml 11/18/20 16:00 11/20/20 08:14 0.9 % Sodium Chloride Flush 3 Ml Syringe IVFLUSH 3 ml QSHIFT SHAYY Administration Labs CBC & Chem 7: 11/20/20 05:44 11/20/20 05:44 Assessment and Plan (1) PAF (paroxysmal atrial fibrillation): Assessment and Plan: 65F presented for elective left DON hypotension resolved pafib in NSR, not on AC due to low CHADSVASC continue toprol if bp tolerates left don management per ortho
== END 2020-11-20 16:53 | disposition home health service (06) | DRG 301 ==
LOC: HO.SSSA 08:25 → HO.S3 14:37
PROVIDERS: Internal Medicine; Physician Assistant; Admitting Provider Orthopaedic Surgery; PCP Internal Medicine; Visit Provider Orthopaedic Surgery
PROC: 0SRB0JA Replacement of Left Hip Joint with Synthetic Substitute, Uncemented, Open Approach (ICD-10-PCS; CPT 27130; principal; 2020-11-18 10:00)
DX: M16.12 Unilateral primary osteoarthritis, left hip (principal); I48.0 Paroxysmal atrial fibrillation; Z20.822 Contact with and (suspected) exposure to COVID-19; Z96.653 Presence of artificial knee joint, bilateral; Z88.0 Allergy status to penicillin; Z79.899 Other long term (current) drug therapy
CPT/HCPCS: 36415; 72170; 80048; 85025; 85027; 86850; 86900; 86901; 86923; 87635; 87640; 87641; 88304; 88311; 93005; 97110; 97116; 97162; 97165; 97535; C1776; J0131; J1170; J2250; J2370; J2405; J3010; J3370; P9016

== ENCOUNTER → 2020-12-04 12:31 | Outpatient (BNVA) | payer OTHER, SELFPAY | PROVIDERS: PCP Internal Medicine; Visit Provider Orthopaedic Surgery ==

== ENCOUNTER 2021-01-08 07:56 | Outpatient (REF) | payer OTHER, SELFPAY ==
--- NOTE | ~2021-01-08 | XR_ITS ---
EXAMINATION: XR PELVIS XR HIP, LEFT CLINICAL INFORMATION: Hip pain. COMPARISON: Most recent pelvic radiograph dated 11/18/2020. TECHNIQUE: AP view the pelvis. AP and crosstable lateral views of the left hip. FINDINGS: Left hip arthroplasty. No hardware or osseous fracture. No prior hardware lucency to suggest loosening or infection. Phleboliths within the pelvis. Severe right hip joint space narrowing with subchondral sclerosis, subchondral cystic change, and large marginal osteophytes. XR/XR hip LT 1V IMPRESSION: Left hip arthroplasty without evidence of complication. Severe right hip osteoarthritis, unchanged.
--- NOTE | ~2021-01-08 | XR_ITS ---
EXAMINATION: XR PELVIS XR HIP, LEFT CLINICAL INFORMATION: Hip pain. COMPARISON: Most recent pelvic radiograph dated 11/18/2020. TECHNIQUE: AP view the pelvis. AP and crosstable lateral views of the left hip. FINDINGS: Left hip arthroplasty. No hardware or osseous fracture. No prior hardware lucency to suggest loosening or infection. Phleboliths within the pelvis. Severe right hip joint space narrowing with subchondral sclerosis, subchondral cystic change, and large marginal osteophytes. XR/XR pelvis 1-2V IMPRESSION: Left hip arthroplasty without evidence of complication. Severe right hip osteoarthritis, unchanged.
== END 2021-01-08 07:57 | disposition home or self-care (01) ==
LOC: HO.HOSX 07:56
PROVIDERS: Visit Provider Orthopaedic Surgery
DX: Z47.1 Aftercare following joint replacement surgery (principal); Z96.642 Presence of left artificial hip joint
CPT/HCPCS: 72170; 73501

== ENCOUNTER → 2021-02-19 13:15 | Outpatient (BNVA) | payer OTHER, SELFPAY | PROVIDERS: PCP Internal Medicine; Visit Provider Orthopaedic Surgery ==

== ENCOUNTER 2021-02-26 14:00 | Outpatient (RCR) | payer OTHER, SELFPAY ==
--- NOTE | 2021-01-09 16:23 | MHC.PT.EP ---
[facility] [place] Office [place] Office [place] Office [address] Travon Murcia [address] [phone] F: [phone] F: [phone] F: [phone] F: [phone] Physical Therapy Plan of Care Date of Evaluation: Date of Surgery: 11/18/20 Diagnosis: L DON-posterior approach Assessment: Pt is a 65yo F s/p L DON 11/18/[address] Asencio. She has a hx of bilateral knee replacements as well. She presents with current impairments in ROM, strength, endurance, body mechanics, gait, and balance. She is limited functionally by prolonged standing, ambulation, and stair navigation. She is an excellent candidate for skilled PT services to address current impairments and facilitate return to PLOF. Frequency and Duration: The patient will be seen 2x/week 5 weeks Short Term Goals: Pt will be I with HEP to promote self management of symptoms Pt will improve hip ABD strength 1/2 grade to improve stability Retirement Goals: Pt will ascend/descend 1 flight of stairs with reciprocal gait pattern Pt will ambulate 30 min with improve stability and gait mechanics with LRAD Treatment Plan: Modalities to reduce pain, spasms and effusion. Manual therapy to restore motion and function. Therapeutic exercise to improve strength and flexibility. Neuromuscular re-education for posture and balance. Therapeutic activities to return to functional activities of daily living. Electronically signed by: Danette Meza PT, DPT Please sign and return to therapist. Thank you for your referral.
--- NOTE | 2021-02-26 16:49 | MHC.PT.DC ---
[facility] [place] Office [place] Office [place] Office [address] Travon Murcia [address] [phone] F: [phone] F: [phone] F: [phone] F: [phone] Physical Therapy Discharge Report Diagnosis: L DON-posterior approach Date of Surgery: 11/18/20 Date of Evaluation: 01/09/21 Date of Discharge: 02/26/21 Treatments to Date: 13 Cancellations to Date: 1 No Shows to Date: 1 Discharge Status: Achieved Goals Improved Function Independent with HEP Discharge Summary: Pt is s/p L DON posterior approach. She has made excellent progress since SOC. She has improved LEFI outcome measure from 45/80 on initial evaluation to 72/80 today. She has improved strength throughout L hip and has no reports of pain. She ambulates household distances without AD and ambulates community distances with SPC but reports she is limited by her R hip, not L. She is I with HEP and is being D/C from skilled PT services at this time. She has printed, updated copy of HEP and has a blue thera band. She reports no further questions or concerns for PT at this time. Electronically signed by: Danette Meza PT, DPT Please sign and return to therapist. Thank you for your referral.
== END 2021-02-26 16:49 | disposition home or self-care (01) ==
LOC: HO.PT 14:00
PROVIDERS: PCP Internal Medicine; Visit Provider Orthopaedic Surgery
DX: Z96.642 Presence of left artificial hip joint (principal)
CPT/HCPCS: 97110; 97116; 97161; 97530

== ENCOUNTER 2021-06-22 08:51 | Outpatient (REF) | payer OTHER, SELFPAY ==
--- NOTE | ~2021-06-22 | XR_ITS ---
EXAMINATION: XR hip RT min 2V, XR pelvis 1-2V CLINICAL INFORMATION: Reason for Exam M25.551 - Pain in right hip COMPARISON: None. TECHNIQUE: 2 AP radiographs of the pelvis, AP and lateral radiographs of the right hip. FINDINGS: Right hip demonstrates marked joint space narrowing, marked subchondral cyst formation of the femoral head, marked subchondral sclerosis of the femoral head and acetabulum and moderate diffuse osteophytosis. No fractures are visualized. Partial visualization is made of a total left hip arthroplasty. Scattered pelvic phleboliths are noted. The visualized sacroiliac joints are normal in appearance. XR/XR pelvis 1-2V IMPRESSION: *Marked osteoarthritis of the right hip. *Status post total left hip arthroplasty.
--- NOTE | ~2021-06-22 | XR_ITS ---
EXAMINATION: XR hip RT min 2V, XR pelvis 1-2V CLINICAL INFORMATION: Reason for Exam M25.551 - Pain in right hip COMPARISON: None. TECHNIQUE: 2 AP radiographs of the pelvis, AP and lateral radiographs of the right hip. FINDINGS: Right hip demonstrates marked joint space narrowing, marked subchondral cyst formation of the femoral head, marked subchondral sclerosis of the femoral head and acetabulum and moderate diffuse osteophytosis. No fractures are visualized. Partial visualization is made of a total left hip arthroplasty. Scattered pelvic phleboliths are noted. The visualized sacroiliac joints are normal in appearance. XR/XR hip RT min 2V IMPRESSION: *Marked osteoarthritis of the right hip. *Status post total left hip arthroplasty.
== END 2021-06-22 08:52 | disposition home or self-care (01) ==
LOC: HO.HOSX 08:51
PROVIDERS: Visit Provider Physician Assistant
DX: M16.11 Unilateral primary osteoarthritis, right hip (principal)
CPT/HCPCS: 72170; 73502

== ENCOUNTER 2021-06-23 12:44 | Outpatient (REF) | payer OTHER, SELFPAY ==
[2021-06-23 16:09] LABS: Influenza A PCR NEGATIVE (Negative); Influenza B PCR NEGATIVE (Negative); Resp Syncy Virus RNA Qual PCR NEGATIVE (Negative); SARS COV2 PCR INHOUSE POSITIVE (Negative)
== END 2021-06-23 12:45 | disposition home or self-care (01) ==
LOC: HO.10HDL 12:44
PROVIDERS: Visit Provider Internal Medicine
DX: Z20.822 Contact with and (suspected) exposure to COVID-19 (principal)
CPT/HCPCS: 0241U

== ENCOUNTER 2021-08-21 12:43 | Outpatient (REF) | payer OTHER, SELFPAY ==
--- NOTE | 2021-08-21 12:44 | ECG_ITS ---
Test Reason : PREOP Blood Pressure : / mmHG Vent. Rate : 071 BPM Atrial Rate : 071 BPM P-R Int : 146 ms QRS Dur : 076 ms QT Int : 390 ms P-R-T Axes : 058 030 046 degrees QTc Int : 423 ms Normal sinus rhythm Normal ECG When compared with ECG of 04-NOV-2020 15:35, Nonspecific T wave abnormality no longer evident in Inferior leads Referred By: Yohan Asencio Electronically Signed By:CAESAR ZAZUETA
[2021-08-21 13:40] LABS: MANUAL DIFF FLAG NO
[2021-08-21 14:07] LABS: Basophils Percent Auto 0.4 % (0-2); Eosinophils Absolute Auto 0.2 X10*3/uL (0.0-0.4); Eosinophils Percent Auto 2.8 % (0-4); Hematocrit 39.5 % (37.0-47.0); Hemoglobin 12.8 g/dl (12.0-16.0); Imm Gran Abs Auto 0.02 X10*3/uL (0.00-0.03); Imm Gran Pct Auto 0.3 % (0.0-0.4); Lymphocytes Absolute Auto 2.7 X10*3/uL (1.2-4.9); Lymphocytes Percent Auto 38.9 % (20-40); Mean Corpuscular HGB Conc 32.4 g/dl (31.0-35.0); Mean Corpuscular Hemoglobin 30.4 pg (27.0-33.0); Mean Corpuscular Volume 93.8 fL (80.0-98.0); Monocytes Absolute Auto 0.5 X10*3/uL (0.1-1.2); Monocytes Percent Auto 6.6 % (2-11); Neutrophils Absolute Auto 3.5 x10*3/uL (2.0-8.3); Platelet Count 247 X10*3/uL (160-400); Red Blood Count 4.21 X10*6/uL (4.20-5.50); Red Cell Distribution Width 13.1 % (11.0-16.0); White Blood Count 6.8 X10*3/uL (4.8-10.8)
[2021-08-21 14:30] LABS: Anion Gap 12 (12-20); Blood Urea Nitrogen 12 mg/dL (9-16); Calcium 9.6 mg/dL (8.4-10.2); Carbon Dioxide 31 mmol/L (22-29); Chloride 102 mmol/L (96-108); Estimated Glomerular Filt Rate > 60; Glucose Random 85 mg/dL (60-115); Potassium 4.2 mmol/L (3.3-5.1); Sodium 141 mmol/L (135-145)
== END 2021-08-21 12:44 | disposition home or self-care (01) ==
LOC: HO.10HDL 12:43
PROVIDERS: Absent Provider Internal Medicine; Visit Provider Orthopaedic Surgery
DX: Z01.810 Encounter for preprocedural cardiovascular examination (principal); Z01.812 Encounter for preprocedural laboratory examination
CPT/HCPCS: 36415; 80048; 85025; 93005

== ENCOUNTER 2021-08-27 12:18 | Outpatient (REF) | payer OTHER, SELFPAY | END 2021-08-27 12:19 | disposition home or self-care (01) | LOC: HO.HOSX 12:18 | PROVIDERS: Visit Provider Orthopaedic Surgery | DX: Z13.89 Encounter for screening for other disorder (principal) ==

== ENCOUNTER → 2021-09-03 14:18 | Outpatient (BNVA) | payer OTHER, SELFPAY | PROVIDERS: PCP Internal Medicine; Visit Provider Physician Assistant ==

== ENCOUNTER 2021-09-08 09:50 | Inpatient (IN) | payer OTHER, SELFPAY ==
--- NOTE | 2021-08-27 10:26 | HP_ITS ---
DATE OF SERVICE: 09/09/2021 HISTORY OF PRESENT ILLNESS: The patient is a 66-year-old female who is scheduled for right total hip replacement on 09/09/[address] Asencio. The patient was seen in the office 08/25/2021. The patient feels well. MEDICATIONS: Current medications are Metoprolol-XL 25 mg once a day and a baby aspirin every other day. PAST MEDICAL HISTORY: Significant for hypertension, osteoarthritis, paroxysmal atrial fibrillation, rosacea, history gastric sleeve procedure, both knees replaced, left hip replaced. REVIEW OF SYSTEMS: Weight has increased because of inability to exercise secondary to the hip pain. No fevers or chills or sweats. No headaches or dizziness. No chest pains. No peripheral edema. No shortness of breath. Occasional palpitations. No stomach pains or heartburn. No dysuria. Arthritis as described. No neurological symptoms. Sleep is disrupted occasionally by the hip pain. No change in appetite. No seasonal allergies. No skin complaints. FAMILY HISTORY: Mother at 89. Father at 72. She has 2 sisters. SOCIAL HISTORY: She is , lives alone. Has 2 children. PHYSICAL EXAMINATION: GENERAL: She is awake, alert, in no distress. VITAL SIGNS: Temperature 98.7, pulse 64, respirations 12, blood pressure 116/82, oxygen 97% on room air. Weight is presently 249. HEENT: Pupils equal. TMs clear. Pharynx clear. NECK: Supple. No lymph nodes, bruits, or masses. HEART: Sounds S1, S2. Regular rate. LUNGS: Clear. ABDOMEN: Soft, nontender. Positive bowel sounds. No HSM. EXTREMITIES: No clubbing, cyanosis, or edema. One to 2+ pulses. NEUROLOGIC: Including cranial nerves II through XII are intact. LABORATORY DATA: She has completed labs and EKG, and those are available on Diffon. ASSESSMENT AND PLAN: 1. She is medically stable for the proposed procedure. I will be available for any questions. 2. Hypertension is controlled. 3. Paroxysmal atrial fibrillation, has been controlled. 4. Rosacea, on Metrogel. 5. History of gastric sleeve procedure. Eduardo Daigle MD FC/YANIL / [id number]
[2021-08-28 11:59] VITALS: BP 120/81; PULSE 80; RESP 20; O2SAT 98; BMI 36.0
[2021-08-28 15:10] LABS: MRSA Nasal PCR NEGATIVE (Negative); SA Nasal PCR NEGATIVE (Negative)
--- NOTE | 2021-09-07 09:50 | HO.ANESPROP2 ---
Documented by User: Nicolle Martino NP 09/07/21 09:52 HPI - Anesthesia Eval Consult details Narrative: 66yo F for Right Hip Total Replacement PCP cleared PAF, no OAC s/p Left DON 10/2020 with Spinal/MAC PMF[facility] Active Problems Active Problems: All Active Problems (Updated 08/28/21 @ 12:21 by Sydnie Prasad, CARLIT[place]) Total knee replacement status (Acute) Osteoarthritis of left hip (Acute) Osteoarthritis of left hip (Acute) History of total left hip replacement (Acute) Primary osteoarthritis of right hip (Acute) Past Medical History Medical History A-fib COVID-19 vaccine series completed History of cardioversion History of positive PPD On beta hina at home Osteoarthritis PAF (paroxysmal atrial fibrillation) Rosacea Family History Family History Father No problems noted. Mother No problems noted. Surgical History Surgical History History of cardiac radiofrequency ablation History of total left hip replacement History of total left knee replacement History of total right knee replacement Hx of section Hx of colonoscopy Hx of gastric bypass Social History Social History Are you a primary child care worker to a significant other at home: No Do you presently have visiting nurse or other home services: No Patient Tobacco Use Status: Former Tobacco user Quit Date: 10 yrs ago Second Hand Smoke Exposure: No Use of substances other than those prescribed or required for medical reasons: No Have you been hit, kicked, punched, or otherwise hurt by someone within the past year? 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 Allergies Allergy/AdvReac Type Severity Reaction Status Date / Time Penicillins [PENICILLINS] Allergy Intermediate TONGUE Verified 09/08/21 10:18 SWELLING,SKIN PEELING ON FINGERS Home Medications Medication Instructions Recorded Confirmed Last Taken Type metronidazole 0.75 % topical cream 1 appl TOPICAL BID 12/04/20 09/03/21 Unknown History Exam Exam Date and Time: September 07, 2021 0950 Height,Weight and Vital Signs: Height 5 ft 9 in Weight 110.677 kg Last Vital Signs Pulse 80 08/28/21 11:59 Resp 20 08/28/21 11:59 BP 120/81 08/28/21 11:59 Pulse Ox 98 08/28/21 11:59 Pertinent Lab Results Pertinent Lab Results: Laboratory Tests 08/28/21 08/28/21 12:40 Unknown Nasal Screen MRSA (PCR) NEGATIVE Nasal S. aureus Screen NEGATIVE Nasal MRSA/S.aureus Interp SEE NOTE Blood Type O Positive Antibody Screen NEGATIVE Laboratory Tests 08/21/21 08/21/21 13:39 13:39 WBC 6.8 Hgb 12.8 Hct 39.5 Plt Count 247 Sodium 141 Potassium 4.2 Chloride 102 Carbon Dioxide 31 H BUN 12 Creatinine 0.72 Narrative Narrative: EKG 07/2021 Vent. Rate : 071 BPM ? ? Atrial Rate : 071 BPM ?? P-R Int : 146 ms? QRS Dur : 076 ms ? ? QT Int : 390 ms ? ? ? P-R-T Axes : 058 030 046 degrees ?? QTc Int : 423 ms ? Normal sinus rhythm Normal ECG When compared with ECG of 04-NOV-2020 15:35, Nonspecific T wave abnormality no longer evident in Inferior leads Assessment and Plan Assessment Anesthesia Assessment: Chart Reviewed Documented by User: Brayan Rasheed MD 09/08/21 10:54 [facility] Past Medical History Medical History A-fib COVID-19 vaccine series completed History of cardioversion History of positive PPD On beta hina at home Osteoarthritis PAF (paroxysmal atrial fibrillation) Rosacea Family History Family History Father No problems noted. Mother No problems noted. Family history of problems with anesthesia: No Surgical History Surgical History History of cardiac radiofrequency ablation History of total left hip replacement History of total left knee replacement History of total right knee replacement Hx of section Hx of colonoscopy Hx of gastric bypass History of Problems with Anesthesia: No Social History Social History Are you a primary child care worker to a significant other at home: No Do you presently have visiting nurse or other home services: No Patient Tobacco Use Status: Former Tobacco user Quit Date: 10 yrs ago Second Hand Smoke Exposure: No Use of substances other than those prescribed or required for medical reasons: No Have you been hit, kicked, punched, or otherwise hurt by someone within the past year? 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 Allergies Allergy/AdvReac Type Severity Reaction Status Date / Time Penicillins [PENICILLINS] Allergy Intermediate TONGUE Verified 09/08/21 10:18 SWELLING,SKIN PEELING ON FINGERS Home Medications Medication Instructions Recorded Confirmed Last Taken Type metronidazole 0.75 % topical cream 1 appl TOPICAL BID 12/04/20 09/03/21 Unknown History Exam Airway Mallampati Class: III TM Dist: >3cm Neck ROM: Full Loose/Missing/Broken Teeth: No Assessment and Plan Assessment Anesthesia Assessment: Anesthesia Plan Discussed Final Anesthetic Review Family History of Problems with Anesthesia: No History of Problems with Anesthesia: No NPO: Yes ASA Class: III Final Preanesthetic Review: No Changes in Pt Med Stat, Meds/Allgs Chart Reviewed, Consent Obtained/Reviewed and Anes Risks/Benef Reviewed Patient Risk: Intermediate Procedure Risk: Intermediate Anesthetic Plan Anesthetic Plan: GA Disposition: Standard PACU
[2021-09-08] VITALS (19 sets, daily range): BP systolic 99–150; BP diastolic 70–86; PULSE 57–88; RESP 8–18; TEMP 36.1–37.2; O2SAT 90–100
--- NOTE | ~2021-09-08 | XR_ITS ---
EXAMINATION: XR PELVIS CLINICAL INFORMATION: Right hip replacement COMPARISON: Previous x-ray May 2021 TECHNIQUE: AP view of the pelvis. FINDINGS: There is a new right hip replacement in satisfactory position. No fracture or dislocation is seen. There is a left hip replacement in satisfactory position. There are postoperative changes to the soft tissues.. XR/XR pelvis 1-2V IMPRESSION: Satisfactory position of right hip replacement.
--- NOTE | 2021-09-08 07:31 | MHC.SHP ---
Pre-Procedural Eval Section A Date of Service: 09/08/21 The patient is an INPATIENT: No Changes since office visit: Yes Patient answered all questions; No Cold of Flu in the past 2 weeks, No New Medical Problems and No Changes in Medication The History & Physical has been completed within 30 days and I have reviewed it.: Yes Section B Chief Complaint: Right Hip Osteoarthritis Allergies: Allergies Allergy/AdvReac Type Severity Reaction Status Date / Time Penicillins [PENICILLINS] Allergy Intermediate TONGUE Verified 09/03/21 14:27 SWELLING,SKIN PEELING ON FINGERS Plan I have reviewed the history and physical and performed a pertinent physical examination on my patient. No changes have occurred unless specified.
[2021-09-08] MEDS: oxyCODONE HCl ER 10 MG TAB.ER.12H PO ×2 (10:25→20:12)
[2021-09-08] MEDS: vancomycin HCL 1,500 MG in 0.9 % Sodium Chloride 500 ML 333.33 MG IV (10:36)
[2021-09-08 10:40] LABS: COVID-19 Test Negative (Negative)
[2021-09-08] MEDS: Lactated Ringers 1,000 ML 100 ML IVCONT ×2 (10:50→17:53)
--- NOTE | 2021-09-08 12:01 | P.CDIC_ITS ---
CDI Concurrent Query Documentation Clarification: PHYSICIAN'S DOCUMENTATION REQUEST Date of Query: 09/08/21 1202 Patient Name: Vida Guidry Admit Date: 09/08/21 Dear Doctor, A review of the medical record indicates additional documentation may be needed. Please review below and update the documentation accordingly. Risk Factors/Clinical Indicators/Treatments Patients Body mass index : 36.0 5' 9 in height. If possible, please provide an associated diagnosis related to the abnormal BMI, such as: For a BMI >= 30: * Overweight * Obesity * Due to excess calories * Drug induced * Due to other cause Or: * BMI is not significant * Other (please specify) * Unable to determine Use of terms such as suspected, likely, concern for, or probable (associated with a specific diagnosis that is being evaluated, monitored, or treated as if it exists) are acceptable and can be coded in the inpatient setting, when documented at the time of discharge. Thank you, Mildred Dominique [facility], CDIS Extension: [phone] Please use your independent medical judgment in providing your response. THIS QUERY IS PART OF THE PERMANENT MEDICAL RECORD Provider Response: Obesity
--- NOTE | 2021-09-08 12:53 | P.BOP_ITS ---
Brief Operative Note Date of Service: 09/08/21 Pre-op diagnosis: Right hip OA Post-op diagnosis: same Procedure: Right DON Implants: Cornelius Trident 2#56/20 deg [place] Accolade 2 127 deg #7/ +5 36 ceramic Surgeon: Yohan Asencio MD Anesthesia: GETA and local Was an Multiple Drum Sander used for this Procedure?: Yes Multiple Drum Sander: Steffany Card Estimated blood loss (mL): 150 IV fluids (mL): 1,000 Pathology: other Condition: stable Disposition: PACU
--- NOTE | 2021-09-08 12:58 | W.PM.OPN ---
Operative Note Operative Note Date of Service: 09/08/21 Narrative: Procedure in detail: Patient was brought into the operating room and placed in the left lateral decubitus position. All bony prominences were well padded and the limb was prepped and draped in standard sterile fashion. Time-out was called to identify proper site procedure proper surgeon IV antibiotics and 1 g of transaxemic acid were administered. I began by making a curvilinear incision over the posterolateral aspect of the greater trochanter. Dissection was taken down to the tensor fascia which was incised in line with the incision and a Charnley retractor was placed. Cautery was used to maintain hemostasis. A werewolf device was also used. The hip was internally rotated and the external rotators were identified. The vessels were cauterized and a full-thickness capsular/external rotator layer was developed starting just proximal to the piriformis. This layer was tagged and a dull Hohmann retractor was placed underneath the neck in the hip was dislocated. The head was eburnated and deformed. A neck cut was made 1 cm proximal to the lesser trochanter and the head and neck were removed and measured as a 51 on the back table. I started with a 48 and medialized then sequentially reamed up to a size 56 and impacted a 56mm cup at approximately 45 degrees of inclination and 25 degrees of version. I then placed a 20 deg posterior lipped liner and turned my attention to the femur. I identified the piriformis insertion and used this as a starting point for my orianaie cutter. The medius tendon was protected with a Hibs retractor. I then used a Charnley awl to identify the canal and a curved curette to remove the lateral bone. I irrigated copiously. I then sequentially broached in the patient's natural version to a size 7 and placed my trial implants. I templated a 127 #7 which had been placed on the contralateral side. Using a trail head I took the hip through range of motion. I was very satisfied with the stability and length. Therefore I removed all instrumentation and copiously irrigated. I placed my final femoral implant and again took the hip through range of motion and was satisfied with the stability and length. My finel +5 cermaic 36 mm head was impacted in place. I then irrigated for 3 minutes with iodine and placed 1 g of local tranaxemic acid. I then performed a capsular closure with 2.0 fiberwire, Krista's fascia with 0 Vicryl, subcuticular with 2-0 Vicryl and the skin with carl. Patient was placed into a sterile dressing. Patient was extubated brought to the recovery room in stable condition. There were no known complications.
[2021-09-08] MEDS: HYDROmorphone HCl 0.5 MG/0.5 ML SYRINGE IVPUSH ×4 (13:14→14:33)
[2021-09-08] MEDS: oxyCODONE HCl Immed Release 5 MG TABLET PO (13:16)
[2021-09-08] MEDS: ondansetron HCL 4 MG/2 ML VIAL IVPUSH (16:01)
--- NOTE | 2021-09-08 16:26 | HO.PM.IMCN ---
History of Present Illness Data of Consult Service Date: 09/08/21 Requesting physician: Yohan Asencio Primary Care Provider: Unknown Physician HPI 66-year-old woman at admitted by Orthopedic surgery and status post. She has been able to eat and drink any nausea or vomiting vital signs are stable she is resting in bed comfortably. Review of Systems Review of Systems: Denies any recent fever chills or decrease in appetite respiratory denies any shortness of breath coverage production cardiovascular Denies chest pain gastrointestinal denies any dysphagia abdominal pain nausea vomiting or diarrhea genitourinary denies any dysuria frequency or hematuria musculoskeletal status post total hip arthroplasty, right neuropsych denies any weakness or seizures all other systems reviewed are negative [facility] Medical History A-fib COVID-19 vaccine series completed History of cardioversion History of positive PPD On beta hina at home Osteoarthritis PAF (paroxysmal atrial fibrillation) Rosacea Family History Father No problems noted. Mother No problems noted. Surgical History History of cardiac radiofrequency ablation History of total left hip replacement History of total left knee replacement History of total right knee replacement Hx of section Hx of colonoscopy Hx of gastric bypass Social History Are you a primary customer care coordinator to a significant other at home: No Do you presently have visiting nurse or other home services: No Patient Tobacco Use Status: Former Tobacco user Quit Date: 10 yrs ago Second Hand Smoke Exposure: No Use of substances other than those prescribed or required for medical reasons: No Have you been hit, kicked, punched, or otherwise hurt by someone within the past year? 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 Allergies Allergy/AdvReac Type Severity Reaction Status Date / Time Penicillins [PENICILLINS] Allergy Intermediate TONGUE Verified 09/08/21 10:18 SWELLING,SKIN PEELING ON FINGERS Active Medications: Current Medications Acetaminophen (Acetaminophen 325 Mg Tablet) 650 mg PO Q6H PRN PRN Reason: Pain, Mild (Pain Scale 1-3) Aspirin (Aspirin 325 Mg Tablet) 325 mg PO BID [facility] Docusate Sodium (Docusate Sodium 100 Mg Capsule) 100 mg PO BID [facility] Hydromorphone HCl (Hydromorphone Hcl 1 Mg/Ml Syringe) 0.25 mg IVPUSH Q4H PRN; Protocol PRN Reason: Pain, Severe (Pain Scale 7-10) Lactated Ringer's (Lr) 1,000 mls @ 100 mls/hr IVCONT .Q10H [facility] Last Admin: 09/08/21 10:50 Dose: 100 mls/hr Documented by: Vancomycin HCl 1,000 mg/ (Sodium Chloride) 270 mls @ 270 mls/hr IV POSTOP ONE Stop: 09/08/21 17:19 Metoprolol Succinate (Metoprolol Succinate Er 25 Mg Tab.Er.24h) 25 mg PO DAILY [facility]; Protocol Non-Formulary Medication (Metronidazole) 1 appl TOPICAL BID [facility] Ondansetron HCl (Ondansetron Hcl 4 Mg/2 Ml Vial) 4 mg IVPUSH Q8H PRN PRN Reason: Nausea and Vomiting Last Admin: 09/08/21 16:01 Dose: 4 mg Documented by: Oxycodone HCl (Oxycodone Hcl Immed Release 5 Mg Tablet) 10 mg PO Q4H PRN PRN Reason: Pain, Moderate (Pain Scale 4-6 Oxycodone HCl (Oxycodone Hcl Er 10 Mg Tab.Er.12h) 10 mg PO BID [facility] Sodium Chloride (0.9 % Sodium Chloride Flush 3 Ml Syringe) 3 ml IVFLUSH QSHIFT [facility] Home Medications Medication Instructions Recorded Confirmed Last Taken Type metronidazole 0.75 % topical cream 1 appl TOPICAL BID 12/04/20 09/03/21 Unknown History Physical Exam Vital Signs and Narrative: Vital Signs: Last Vital Signs Temp 97.1 F 09/08/21 16:11 Pulse 58 09/08/21 16:11 Resp 17 09/08/21 16:11 BP 150/74 H 09/08/21 16:11 Pulse Ox 97 03/15/22 16:11 BMI result Body Mass Index 36.0 Appearing in no acute distress head is normocephalic atraumatic eyes pupils are PERRLA sclera is anicteric mouth throat mucous membranes are intact and moist neck is supple no lymphadenopathy, no JVD noted lung sounds are clear to auscultation heart regular rate rhythm, clear S1, S2 positive bowel sounds, abdomen is soft, nontender neuro patient is alert x3, no focal deficits Right hip surgical incision not visualized due to surgical dressing intact, dressing without staining Results Labs Labs: Laboratory Results - last 24 hr 09/08/21 10:05 COVID-19 ([facility]) Negative COVID-19 Clin Com See Note Imaging Radiologist's Impressions: Impressions Pelvis X-Ray 09/08/21 15:00 IMPRESSION: Satisfactory position of right hip replacement. Assessment and Plan (1) Osteoarthritis of left hip: Status: Acute Plan 66-year-old woman status post total hip arthroplasty Right total hip arthroplasty Management as per surgical team Pain management History of atrial fibrillation. No exacerbation Continue metoprolol, not on anticoagulation DVT prophylaxis with full-dose aspirin Full code Attending Dr. Philippe
[2021-09-08] MEDS: 0.9 % Sodium Chloride Flush 3 ML SYRINGE IVFLUSH (16:36)
[2021-09-08] MEDS: Docusate Sodium 100 MG CAPSULE PO (20:12)
[2021-09-08] MEDS: vancomycin HCL 1,000 MG in 0.9 % Sodium Chloride 250 ML 270 MG IV (22:08)
[2021-09-09] VITALS (8 sets, daily range): BP systolic 99–116; BP diastolic 53–62; PULSE 82–108; RESP 16–18; TEMP 36–37.4; O2SAT 92–99
[2021-09-09] MEDS: HYDROmorphone HCl 1 MG/ML SYRINGE 0.25 MG IVPUSH ×2 (03:40→09:05)
[2021-09-09] MEDS: ondansetron HCL 4 MG/2 ML VIAL IVPUSH (03:40)
[2021-09-09] MEDS: Lactated Ringers 1,000 ML 100 ML IVCONT ×2 (05:45→18:46)
[2021-09-09 06:03] LABS: MANUAL DIFF FLAG NO
[2021-09-09 06:07] LABS: Basophils Percent Auto 0.2 % (0-2); Hematocrit 32.6 % (37.0-47.0); Hemoglobin 10.6 g/dl (12.0-16.0); Imm Gran Abs Auto 0.04 X10*3/uL (0.00-0.03); Imm Gran Pct Auto 0.3 % (0.0-0.4); Lymphocytes Absolute Auto 2.4 X10*3/uL (1.2-4.9); Lymphocytes Percent Auto 19.5 % (20-40); Mean Corpuscular HGB Conc 32.5 g/dl (31.0-35.0); Mean Corpuscular Hemoglobin 30.5 pg (27.0-33.0); Mean Corpuscular Volume 93.7 fL (80.0-98.0); Monocytes Absolute Auto 1.3 X10*3/uL (0.1-1.2); Monocytes Percent Auto 10.3 % (2-11); Neutrophils Absolute Auto 8.6 x10*3/uL (2.0-8.3); Neutrophils Percent Auto 69.7 % (45-73); Platelet Count 191 X10*3/uL (160-400); Red Blood Count 3.48 X10*6/uL (4.20-5.50); Red Cell Distribution Width 13.5 % (11.0-16.0); White Blood Count 12.4 X10*3/uL (4.8-10.8)
[2021-09-09 06:35] LABS: Anion Gap 14 (12-20); Blood Urea Nitrogen 9 mg/dL (9-16); Carbon Dioxide 24 mmol/L (22-29); Chloride 104 mmol/L (96-108); Creatinine Clr Calc Pharmacy 109.1; Estimated Glomerular Filt Rate > 60; Glucose Fasting 108 mg/dL (60-99); Sodium 138 mmol/L (135-145)
--- NOTE | 2021-09-09 06:59 | PHA.MEDREC ---
Pharmacy Consult ? Medication Reconciliation Pharmacy has reviewed the medication reconciliation.
--- NOTE | 2021-09-09 08:01 | PM.PNORT ---
Subjective Subjective Date of Service: 09/09/21 Interval history: POD 1 s/p RT DON no overnight events states pain is uncomfortable denies n/v,cp,sob,palpitations Physical Exam Vital Signs: Vital Signs: Last Vital Signs Temp 99 F 09/09/21 03:16 Pulse 108 H 09/09/21 03:16 Resp 18 09/09/21 03:16 BP 104/62 09/09/21 03:16 Pulse Ox 95 09/09/21 03:16 BMI result Body Mass Index 36.0 Const: General: cooperative, healthy appearing and no acute distress Resp: Effort & Inspection: normal respiratory effort and able to speak in complete sentences Cardio: Rate: regular rate Peripheral pulses: Peripheral pulses 2+ throughout GI: Palpation (GI): Soft to palpation Skin: General skin exam: no rashes or lesions noted Extrem: Other: Right hip bandage clean dry and intact. no erythema, sensation intact. Procedures Date of Service Date of Service: 09/09/21 Progress Note: A&P Assessment and plan (1) History of total right hip replacement: Status: Acute Assessment and Plan: Continue pain mgmnt Begin Lovenox for dvt ppx begin PT/OT for RT DON Dispo planning-Pending PT eval, pain mgmnt Fall Risk Details Current Medications: Current Medications Acetaminophen (Acetaminophen 325 Mg Tablet) 650 mg PO Q6H PRN PRN Reason: Pain, Mild (Pain Scale 1-3) Aspirin (Aspirin 325 Mg Tablet) 325 mg PO BID [facility] Docusate Sodium (Docusate Sodium 100 Mg Capsule) 100 mg PO BID [facility] Last Admin: 09/08/21 20:12 Dose: 100 mg Documented by: Hydromorphone HCl (Hydromorphone Hcl 1 Mg/Ml Syringe) 0.25 mg IVPUSH Q4H PRN; Protocol PRN Reason: Pain, Severe (Pain Scale 7-10) Last Admin: 09/09/21 03:40 Dose: 0.25 mg Documented by: Lactated Ringer's (Lr) 1,000 mls @ 100 mls/hr IVCONT .Q10H [facility] Last Admin: 09/09/21 05:45 Dose: 100 mls/hr Documented by: Metoprolol Succinate (Metoprolol Succinate Er 25 Mg Tab.Er.24h) 25 mg PO DAILY [facility]; Protocol Ondansetron HCl (Ondansetron Hcl 4 Mg/2 Ml Vial) 4 mg IVPUSH Q8H PRN PRN Reason: Nausea and Vomiting Last Admin: 09/09/21 03:40 Dose: 4 mg Documented by: Oxycodone HCl (Oxycodone Hcl Immed Release 5 Mg Tablet) 10 mg PO Q4H PRN PRN Reason: Pain, Moderate (Pain Scale 4-6 Oxycodone HCl (Oxycodone Hcl Er 10 Mg Tab.Er.12h) 10 mg PO BID [facility] Last Admin: 09/08/21 20:12 Dose: 10 mg Documented by: Sodium Chloride (0.9 % Sodium Chloride Flush 3 Ml Syringe) 3 ml IVFLUSH QSHIFT [facility] Last Admin: 09/09/21 00:33 Dose: Not Given Documented by: Time Spent With Patient Time: Total time spent is greater than 50% in coordination of care (as documented) at patient's floor/unit and/or counseling patient: Time with patient: less than 15 minutes Quality Stroke Does the patient have a stroke diagnosis?: No VTE Prior VTE?: No VTE Risk Level:: Surgical - very high VTE Device Contraindication: N/A - Device Ordered VTE Drug Contraindication: N/A - Med Ordered
--- NOTE | 2021-09-09 11:10 | P.PNIM_ITS ---
Subjective Subjective Date of Service: 09/09/21 Review of Systems follow-up medical consultation Sitting in chair, somewhat uncomfortable with pain but otherwise doing well Physical Exam Vital Signs: Vital Signs: Last Vital Signs Temp 98.6 F 09/09/21 08:00 Pulse 83 09/09/21 08:29 Resp 18 09/09/21 08:00 BP 99/56 L 09/09/21 08:29 Pulse Ox 98 09/09/21 08:29 BMI result Body Mass Index 36.0 Appearing in no acute distress lung sounds are clear to auscultation heart regular rate rhythm, clear S1, S2 positive bowel sounds, abdomen is soft, nontender neuro patient is alert x3, no focal deficits Surgical dressing intact, with no visualized Objective Data Active Medications Acetaminophen (Acetaminophen 325 Mg Tablet) 650 mg PO Q6H PRN PRN Reason: Pain, Mild (Pain Scale 1-3) Docusate Sodium (Docusate Sodium 100 Mg Capsule) 100 mg PO BID [facility] Last Admin: 09/09/21 10:28 Dose: Not Given Documented by: BRIAN Non-Admin Reason: Nausea Enoxaparin Sodium (Enoxaparin Sodium 40 Mg/0.4 Ml Syringe) 40 mg SUBCUT Q24H [facility] Hydromorphone HCl (Hydromorphone Hcl 1 Mg/Ml Syringe) 0.25 mg IVPUSH Q3H PRN; Protocol PRN Reason: Pain, Severe (Pain Scale 7-10) Last Admin: 09/09/21 09:05 Dose: 0.25 mg Documented by: BRIAN Lactated Ringer's (Lr) 1,000 mls @ 100 mls/hr IVCONT .Q10H [facility] Last Admin: 09/09/21 05:45 Dose: 100 mls/hr Documented by: MARTHA Metoprolol Succinate (Metoprolol Succinate Er 25 Mg Tab.Er.24h) 25 mg PO DAILY [facility]; Protocol Last Admin: 09/09/21 10:28 Dose: Not Given Documented by: BRIAN Non-Admin Reason: Nausea Ondansetron HCl (Ondansetron Hcl 4 Mg/2 Ml Vial) 4 mg IVPUSH Q8H PRN PRN Reason: Nausea and Vomiting Last Admin: 09/09/21 03:40 Dose: 4 mg Documented by: HO.SHERIDL Oxycodone HCl (Oxycodone Hcl Immed Release 5 Mg Tablet) 10 mg PO Q4H PRN PRN Reason: Pain, Moderate (Pain Scale 4-6 Oxycodone HCl (Oxycodone Hcl Er 10 Mg Tab.Er.12h) 10 mg PO BID [facility] Last Admin: 09/09/21 10:28 Dose: Not Given Documented by: BRIAN Non-Admin Reason: Nausea Sodium Chloride (0.9 % Sodium Chloride Flush 3 Ml Syringe) 3 ml IVFLUSH QSHIFT [facility] Last Admin: 09/09/21 09:13 Dose: Not Given Documented by: BRIAN Non-Admin Reason: IV Running Labs CBC & Chem 7: 09/09/21 05:33 09/09/21 05:33 Labs: Laboratory Results - last 24 hr 09/09/21 09/09/21 05:33 05:33 MCV 93.7 MCH 30.5 MCHC 32.5 RDW 13.5 Plt Count 191 MPV 10.0 Immature Gran % (Auto) 0.3 Neut % (Auto) 69.7 Lymph % (Auto) 19.5 L [place] % (Auto) 10.3 Eos % (Auto) 0.0 Baso % (Auto) 0.2 Lymph # (Auto) 2.4 [place] # (Auto) 1.3 H Eos # (Auto) 0.0 Baso # (Auto) 0.0 Abs Immat Gran (auto) 0.04 H Absolute Neuts (auto) 8.6 H Absolute Nucleated RBC 0.000 Nucleated RBC % (auto) 0.0 Anion Gap 14 Estim Creat Clear Calc 109.1 Estimated GFR > 60 Fasting Glucose 108 H Calcium 9.0 D Assessment and Plan (1) History of total right hip replacement: Status: Acute Plan 66-year-old woman status post total hip arthroplasty Right total hip arthroplasty Management as per surgical team Pain management History of atrial fibrillation.? No exacerbation Continue metoprolol, not on anticoagulation DVT prophylaxis with full-dose aspirin Full code Attending Dr. Mc Consult completed. Will sign off Quality Stroke Does the patient have a stroke diagnosis?: No VTE Prior VTE?: No VTE Risk Level:: Surgical - very high VTE Device Contraindication: N/A - Device Ordered VTE Drug Contraindication: N/A - Med Ordered
[2021-09-09] MEDS: Enoxaparin Sodium 40 MG/0.4 ML SYRINGE SUBCUT (12:33)
[2021-09-09] MEDS: oxyCODONE HCl Immed Release 5 MG TABLET 10 MG PO (13:06)
[2021-09-09] MEDS: Acetaminophen 325 MG TABLET 650 MG PO (13:06)
--- NOTE | 2021-09-09 13:55 | HO.POSTANES ---
Post Anesthesia Evaluation Post Anesthesia Evaluation Vital Signs: Vital Signs Temp Pulse Resp BP Pulse Ox 09/09/21 11:52 99.4 F 82 18 114/61 99 09/09/21 08:29 83 99/56 L 98 09/09/21 08:00 98.6 F 83 18 99/56 L 98 09/09/21 03:16 99 F 108 H 18 104/62 95 Anesthesia: General Mental Status: Awake Pain Control: Satisfactory (moderate pain) Nausea/Vomiting: None Hydration: Adequate Anesthesia-Related Issues: No Anes. Related Issues
--- NOTE | 2021-09-09 15:00 | MHC.CM.PN ---
met with pt who lives with her dgter..pt is agreeable to physical therapies receommendation for home pt..pts dgter will transport her home pt is brant x 3
[2021-09-09] MEDS: oxyCODONE HCl ER 10 MG TAB.ER.12H PO (19:56)
[2021-09-09] MEDS: Docusate Sodium 100 MG CAPSULE PO (19:56)
[2021-09-09] MEDS: 0.9 % Sodium Chloride Flush 3 ML SYRINGE IVFLUSH (19:57)
[2021-09-10 03:56] VITALS: BP 111/58; PULSE 94; RESP 18; TEMP 37.2; O2SAT 94
[2021-09-10] MEDS: Lactated Ringers 1,000 ML 100 ML IVCONT (04:11)
[2021-09-10 05:56] LABS: Basophils Percent Auto 0.2 % (0-2); Eosinophils Percent Auto 0.1 % (0-4); Hematocrit 29.5 % (37.0-47.0); Hemoglobin 9.6 g/dl (12.0-16.0); Imm Gran Abs Auto 0.05 X10*3/uL (0.00-0.03); Imm Gran Pct Auto 0.5 % (0.0-0.4); Lymphocytes Absolute Auto 1.8 X10*3/uL (1.2-4.9); Lymphocytes Percent Auto 17.7 % (20-40); MANUAL DIFF FLAG NO; Mean Corpuscular HGB Conc 32.5 g/dl (31.0-35.0); Mean Corpuscular Hemoglobin 30.4 pg (27.0-33.0); Mean Corpuscular Volume 93.4 fL (80.0-98.0); Mean Platelet Volume 9.9 fL (9.4-12.3); Monocytes Absolute Auto 1.3 X10*3/uL (0.1-1.2); Monocytes Percent Auto 12.1 % (2-11); Neutrophils Absolute Auto 7.2 x10*3/uL (2.0-8.3); Neutrophils Percent Auto 69.4 % (45-73); Platelet Count 157 X10*3/uL (160-400); Red Blood Count 3.16 X10*6/uL (4.20-5.50); Red Cell Distribution Width 13.8 % (11.0-16.0); White Blood Count 10.3 X10*3/uL (4.8-10.8)
[2021-09-10 06:15] LABS: Anion Gap 11 (12-20); Blood Urea Nitrogen 8 mg/dL (9-16); Calcium 8.6 mg/dL (8.4-10.2); Carbon Dioxide 27 mmol/L (22-29); Chloride 104 mmol/L (96-108); Creatinine Clr Calc Pharmacy 115.9; Estimated Glomerular Filt Rate > 60; Glucose Fasting 114 mg/dL (60-99); Potassium 3.7 mmol/L (3.3-5.1); Sodium 138 mmol/L (135-145)
[2021-09-10 08:00] VITALS: BP 117/58; PULSE 94; RESP 17; TEMP 36.2; O2SAT 95
[2021-09-10] MEDS: Acetaminophen 325 MG TABLET 650 MG PO (08:10)
[2021-09-10] MEDS: oxyCODONE HCl Immed Release 5 MG TABLET 10 MG PO (08:10)
[2021-09-10] MEDS: Metoprolol Succinate ER 25 MG TAB.ER.24H PO (08:10)
[2021-09-10] MEDS: oxyCODONE HCl ER 10 MG TAB.ER.12H PO (08:10)
[2021-09-10] MEDS: Docusate Sodium 100 MG CAPSULE PO (08:11)
[2021-09-10 08:47] VITALS: BP 117/58; PULSE 94; O2SAT 95
--- NOTE | 2021-09-10 09:24 | PM.DS ---
DS: Providers Provider Date of Service: 09/10/21 Date of admission: 09/08/21 09:50 Primary care physician: Unknown Physician Consults: 09/08/21 16:20 Consult to Hospitalist Routine Consulting Provider: Hospitalist Reason For Exam: medical management DS: Diagnosis Discharge Diagnosis (1) History of total right hip replacement: Status: Acute DS: Summary Hospital Course Hospital Course: The patient underwent a successful right total hip arthroplasty, was transferred to PACU and then to the floor to recover. During their stay, their vitals were stable, afebrile at 98.0 . Labs were unremarkable, H/H 9.6/29.5. POD 1 she was started on lovenox for DVT ppx, they also received PT/OT services twice a day. Prior to discharge, their dressing was change, incision clean dry and intact, new Aquacel dressing applied and the plan was to be discharged home with vna Time Spent with Patient Time attestation: Total time spent providing and/or coordinating discharge services: Discharge coordination time: Less than 30 minutes Quality: Stroke Does the patient have a stroke diagnosis?: No Physical Exam Vital Signs: Vital Signs: Last Vital Signs Temp 97.1 F 09/10/21 08:00 Pulse 94 09/10/21 08:47 Resp 17 09/10/21 08:00 BP 117/58 L 09/10/21 08:47 Pulse Ox 95 09/10/21 08:47 BMI result Body Mass Index 36.0 Const: General: cooperative, healthy appearing and no acute distress Resp: Effort & Inspection: normal respiratory effort and able to speak in complete sentences Cardio: Rate: regular rate Peripheral pulses: Peripheral pulses 2+ throughout GI: Palpation (GI): Soft to palpation Skin: General skin exam: no rashes or lesions noted Extrem: Other: incision clean dry and intact. [place] intact. No erythema or effusion. Calf supple nontender. Neurovascularly intact. DS: Data Data Completed and Pending Completed studies during hospitalization [Text1]: Procedures Replacement of Left Hip Joint with Synthetic Substitute, Uncemented, Open Approach (11/18/20) Transfusion of Nonautologous Red Blood Cells into Peripheral Vein, Percutaneous Approach (11/18/20) Pending studies at discharge: Pending at discharge 09/08/21 12:23 Surgical [PTH] Routine Labs on day of discharge: Laboratory Results - last 24 hr 09/10/21 09/10/21 05:30 05:30 WBC 10.3 RBC 3.16 L Hgb 9.6 L Hct 29.5 L MCV 93.4 MCH 30.4 MCHC 32.5 RDW 13.8 Plt Count 157 L MPV 9.9 Immature Gran % (Auto) 0.5 H Neut % (Auto) 69.4 Lymph % (Auto) 17.7 L [place] % (Auto) 12.1 H Eos % (Auto) 0.1 Baso % (Auto) 0.2 Lymph # (Auto) 1.8 [place] # (Auto) 1.3 H Eos # (Auto) 0.0 Baso # (Auto) 0.0 Abs Immat Gran (auto) 0.05 H Absolute Neuts (auto) 7.2 Absolute Nucleated RBC 0.000 Nucleated RBC % (auto) 0.0 Sodium 138 Potassium 3.7 Chloride 104 Carbon Dioxide 27 Anion Gap 11 L BUN 8 L Creatinine 0.65 Estim Creat Clear Calc 115.9 Estimated GFR > 60 Fasting Glucose 114 H Calcium 8.6 Discharge Plan Discharge Patient Disposition: Home Health Service Discharge Diagnosis: RT DON Referrals: Krista JEFFERS [Outside] - 1 Week Nohemi Juarez PA-C [Physician Nut Sifter] - 2 Weeks (09/24/21 1:00 [facility] [place] [facility] Nohemi Juarez PA-C[place] Discharge Medications: New docusate sodium 100 mg Capsule 100 mg PO BID 14 Days Qty: 28 0RF oxycodone 10 mg tablet 10 mg PO Q4H PRN (Reason: Pain, Moderate (Pain Scale 4-6) 7 Days Qty: 42 0RF acetaminophen 325 mg Tablet 650 mg PO Q6H PRN (Reason: Pain, Mild (Pain Scale 1-3)) 30 Days Qty: 240 0RF Continued metoprolol succinate 25 mg tablet extended release 24 hr 25 mg PO DAILY 90 Days Qty: 90 3RF metronidazole 0.75 % cream 1 appl topical BID 0RF No Action ondansetron HCl 4 mg tablet 4 mg PO Q6H PRN (Reason: nausea and vomiting) 7 Days Qty: 28 0RF Eliquis 2.5 mg tablet 2.5 mg PO BID 42 Days Qty: 84 0RF Discharge Orders: Discharge Order (Routine); Ordered 09/10/21 Ordered By: Steffany Card Diet: regular diet Activity on Discharge: Use cane or walker Stand Alone Forms: Patient Portal Discharge page Care Plan Goals: Restore function of joint Health Concerns: none Plan of Treatment: Physical Therapy Pain management DVT prophylaxis Assessment: Physical Therapy for Total hip arthroplasty: posterior precautions, gait training, ROM, strength Limit stair climbing No showering, no tub bath-keep dressing clean, dry and intact No driving x6 weeks Continue Lovenox x 6 weeks [place] [facility] [place] [facility] [place] Patient Instructions: Enoxaparin (By injection) Discharge Date/Time: 09/10/21 13:40
--- NOTE | 2021-09-10 11:29 | MHC.CM.PN ---
PATIENT IS DC HOME WITH RESUMPTION OF HER OUTPATIENT PHYSICAL THERAPY SERVICES. RN AWARE OF PLAN.
[2021-09-10 11:33] VITALS: BP 104/58; PULSE 71; RESP 17; TEMP 36.6; O2SAT 97
[2021-09-10] MEDS: Enoxaparin Sodium 40 MG/0.4 ML SYRINGE SUBCUT (11:39)
--- NOTE | 2021-09-10 12:20 | MHC.CM.PN ---
PATIENT TO RETURN HOME WITH NEW PT AND OT SKILLS THROUGH DAMIÁN JEFFERS RN AWARE OF DC
--- NOTE | 2021-09-10 12:43 | W.MHC.F2F ---
Service Date Service Date: 09/10/21 Encounter Date of encounter: 09/10/21 Reasons for Services Signs and symptoms assessed: right hip pain, diff with ambulation, poor balance Reason for physical therapy: home safety and mobility, therapeutic exercises, restore joint function, gait/transfer training, ADL training and energy conservation Reason for occupational therapy: home safety and mobility, therapeutic exercises, restore joint function, gait/transfer training, ADL training and energy conservation MD Overseeing Care: Yoahn Asencio Homebound: Leaving the home is medically contraindicated at this time without the asist of a device and/or another person due th the listed conditions above and below. Reason homebound: unsteady gait / fall risk, pain with ambulation, poor balance / fall risk and unable to drive Certification: Based on the above findings, I certify that this patient is confined to the home and needs intermittent PT/OT The patient is under my care, and I have initiated the establishment of the plan of care. The patient will be followed by a physician who will periodically review the plan of care.
== END 2021-09-10 13:40 | disposition home health service (06) | DRG 301 ==
LOC: HO.SSSA 09:56 → HO.S3 15:28
PROVIDERS: Physician Assistant; Admitting Provider Orthopaedic Surgery; PCP Internal Medicine; Visit Provider Orthopaedic Surgery
PROC: 0SR903A Replacement of Right Hip Joint with Ceramic Synthetic Substitute, Uncemented, Open Approach (ICD-10-PCS; CPT 27130; principal; 2021-09-08 11:40)
DX: M16.11 Unilateral primary osteoarthritis, right hip (principal); E66.9 Obesity, unspecified; I10 Essential (primary) hypertension; I48.0 Paroxysmal atrial fibrillation; L71.9 Rosacea, unspecified; Z68.36 Body mass index [BMI] 36.0-36.9, adult; Z20.822 Contact with and (suspected) exposure to COVID-19; Z96.653 Presence of artificial knee joint, bilateral; Z98.84 Bariatric surgery status; Z87.891 Personal history of nicotine dependence; Z88.0 Allergy status to penicillin; Z79.899 Other long term (current) drug therapy
CPT/HCPCS: 36415; 72170; 80048; 85025; 86850; 86900; 86901; 87635; 87640; 87641; 88304; 88311; 97110; 97116; 97162; 97165; 97530; C1776; J0131; J1100; J1170; J1650; J2250; J2405; J3010; J3370

== ENCOUNTER → 2021-09-24 12:58 | Outpatient (BNVA) | payer OTHER, SELFPAY | PROVIDERS: Visit Provider Physician Assistant | DX: Z96.641 Presence of right artificial hip joint (principal) ==

== ENCOUNTER → 2021-10-19 13:25 | Outpatient (BNVA) | payer OTHER, SELFPAY | PROVIDERS: PCP Internal Medicine; Referring Provider Internal Medicine; Visit Provider Internal Medicine | DX: Z13.89 Encounter for screening for other disorder (principal) ==

== ENCOUNTER → 2021-10-22 11:18 | Outpatient (BNVA) | payer OTHER, SELFPAY | PROVIDERS: PCP Internal Medicine; Visit Provider Physician Assistant | DX: Z13.89 Encounter for screening for other disorder (principal) ==

== ENCOUNTER 2021-12-03 08:39 | Outpatient (REF) | payer OTHER, SELFPAY ==
--- NOTE | ~2021-12-03 | XR_ITS ---
EXAMINATION: XR PELVIS CLINICAL INFORMATION: Pain. COMPARISON: 09/08/2021. TECHNIQUE: AP view of the pelvis. FINDINGS: Total bilateral hip arthroplasty. No evidence of hardware failure. No acute fracture. No subluxation. No significant soft tissue abnormality. XR/XR pelvis 1-2V IMPRESSION: Intact bilateral hip arthroplasty. No acute fractures.
== END 2021-12-03 08:40 | disposition home or self-care (01) ==
LOC: HO.HOSX 08:39
PROVIDERS: Visit Provider Orthopaedic Surgery
DX: M25.559 Pain in unspecified hip (principal); Z96.643 Presence of artificial hip joint, bilateral
CPT/HCPCS: 72170

== ENCOUNTER 2021-12-03 14:00 | Outpatient (RCR) | payer OTHER, SELFPAY ==
--- NOTE | 2021-09-24 14:56 | MHC.PT.EP ---
[facility] [place] Office [place] Office [place] Office [address] Travon Murcia [address] [phone] F: [phone] F: [phone] F: [phone] F: [phone] Physical Therapy Plan of Care Date of Evaluation: Date of Surgery: 09/08/21 Diagnosis: S/P Rt DON Assessment: 66 yo FEMALE S/P Rt THR 09/08/21- SIGNIF H/O EDWIN TKA AND ALSO Lt DON (2020). 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 SHE IS CURRENTLY AMB W EDWIN CANES AND HAS AN ALTERED GAIT DUE TO TIGHT PSOAS/ CALF MM AND WEAK GLUTES/ CORE MM. Pt'S GOAL IS TO IMPROVE HER AMB, WITHOUT CANES, INCREASE GAIT NIRU. OBJECTIVE FINDINGS: DECR TRUNK STAB IN MULTI Jt REPLACEMENT Pt, ALTERED DYNAMIC BALANCE, MILD ACUTE Rt HIP PAIN, AND COMPENSATORY UEs USE W TRANSFERS AND BED MOB. Pt IS A VERY GOOD PT CANDIDATE TO ADDRESS THE ABOVE AND MAXIMIZE HER FUNCTIONAL INDEP IN HER POST-OP COURSE. Frequency and Duration: The patient will be seen 2 x WK x 10 WKS Short Term Goals: Pt'S PAIN REMAIN DECREASED TO 2-3/10 INCR THER EX OVER NEXT 2 WKS Pt DEMON WFL AROM HIP EXT AND ANKLE DF/PF IN 3 WKS Pt DEMO IMPROVED GAIT MECH W LEAST RESTRICTIVE AD ON LEVEL GROUND AND STAIRS IN 2 WKS Pt DEMON TRANSFERS W/O UEs COMPENSATION IN 3 WKS Driver License Technician Goals: Pt INDEP W HEP PROGRESSION AND SELF-SX MGMT STRATEGIES IN 10 WKS Pt DEMON INDEP GAIT MECH W/O AD ON LEVEL AND STAIRS, RESUME FITNESS WALKING AND INCR OVERALL FUNCT INDEP EVIDENT W IMPROVED LEFI SCORE BY 5-15 POINTS (AT EVAL 41/80) IN 10 WKS Pt DEMON SLS Rt , Lt LE x 10 SEC IN 8 WKS Treatment Plan: Modalities to reduce pain, spasms and effusion. Manual therapy to restore motion and function. Therapeutic exercise to improve strength and flexibility. Neuromuscular re-education for posture and balance. Therapeutic activities to return to functional activities of daily living. Electronically signed by: Helga Franklin PT Please sign and return to therapist. Thank you for your referral.
--- NOTE | 2021-12-03 14:58 | MHC.PT.DC ---
[facility] [place] Office [place] Office [place] Office [address] Travon Murcia [address] [phone] F: [phone] F: [phone] F: [phone] F: [phone] Physical Therapy Discharge Report Diagnosis: S/P Rt DON Date of Surgery: 09/08/21 Date of Evaluation: 09/24/21 Date of Discharge: 12/03/21 Treatments to Date: 16 Cancellations to Date: 0 No Shows to Date: 0 Discharge Status: Achieved Goals Improved Function Independent with HEP Discharge Summary: Pt is 12 weeks post-op R DON as of 12/01/21. Pt has made excellent progress since SOC. She has met her STGs and most of her LTGs. She has 0/10 pain and has improved strength throughout R LE. She has improved score on LEFI outcome measure from 41/80 on initial PT evaluation to 73/80 today. She is I with HEP. Pt is being D/C from skilled PT at this time. Provided pt with printed, updated copy of HEP and RTB and pt verbalized understanding. Pt reports no further questions or concerns for PT at this time. Electronically signed by: Danette Meza, PT, DPT Please sign and return to therapist. Thank you for your referral.
== END 2021-12-03 14:59 | disposition home or self-care (01) ==
LOC: HO.PT 14:00
PROVIDERS: Visit Provider Orthopaedic Surgery
DX: Z96.641 Presence of right artificial hip joint (principal)
CPT/HCPCS: 97110; 97112; 97162; 97530

== ENCOUNTER 2022-01-12 13:41 | Emergency (ER) | payer OTHER, SELFPAY ==
--- NOTE | 2022-01-12 | ECG_ITS ---
Test Reason : afib Blood Pressure : / mmHG Vent. Rate : 154 BPM Atrial Rate : 000 BPM P-R Int : 000 ms QRS Dur : 070 ms QT Int : 284 ms P-R-T Axes : 000 010 224 degrees QTc Int : 454 ms Atrial fibrillation with rapid ventricular response Nonspecific ST abnormality Abnormal QRS-T angle, consider primary T wave abnormality Abnormal ECG When compared with ECG of 21-AUG-2021 13:42, Atrial fibrillation has replaced Sinus rhythm Vent. rate has increased BY 83 BPM Nonspecific T wave abnormality now evident in Inferior leads Referred By: Generic ED Physician Electronically Signed By:Hima Jones
[2022-01-12 13:47] VITALS: BP 102/50; PULSE 119; RESP 18; TEMP 36.8; O2SAT 97; BMI 35.4
[2022-01-12 14:11] VITALS: BP 105/83; PULSE 170; RESP 12; O2SAT 97
--- NOTE | 2022-01-12 14:16 | ED.ARRPALP ---
HPI - Arrhythmia/Palpitations General Chief Complaint: Arrhythmia/Palpitations Stated Complaint: Afib sent by croke Time Seen by Provider: 01/12/22 14:10 Source: patient Mode of arrival: ambulatory Limitations: no limitations History of Present Illness HPI narrative: 66-year-old female paroxysmal atrial fibrillation she does take metoprolol she missed dose on Tuesday started feeling palpitations yesterday. Patient was seen by her doctor and sent here for AFib with RVR. Patient states she is not on any blood thinners she denies fevers chills falls or injuries. Asthma less than 24 hours the time arrival to the ER. complaint: rapid heart beat Related Data Home Medications Medication Instructions Recorded Confirmed metronidazole 0.75 % topical cream 1 appl topical BID 12/04/20 10/19/21 Previous Rx's Medication Instructions Recorded metoprolol succinate 25 mg 25 mg PO DAILY 90 days #90 tabs 08/14/21 tablet,extended release 24 hr acetaminophen 325 mg tablet 650 mg PO Q6H PRN Pain, Mild (Pain 09/10/21 Scale 1-3) 30 days #240 tabs docusate sodium 100 mg capsule 100 mg PO BID 14 days #28 caps 09/10/21 oxycodone 10 mg tablet 10 mg PO Q4H PRN Pain, Moderate 09/10/21 (Pain Scale 4-6 7 days #42 tabs apixaban 2.5 mg tablet (Eliquis) 2.5 mg PO BID 6 weeks #84 tabs 09/11/21 ondansetron HCl 4 mg tablet 4 mg PO Q6H PRN nausea and 09/11/21 vomiting 7 days #28 tabs apixaban 5 mg tablet (Eliquis) 5 mg PO BID #120 tabs 01/12/22 Allergies Allergy/AdvReac Type Severity Reaction Status Date / Time Penicillins [PENICILLINS] Allergy Intermediate TONGUE Verified 12/03/21 11:25 SWELLING,SKIN PEELING ON FINGERS Review of Systems Review of Systems: Review of systems: General: Patient denies any fever chills recent illness or falls Musculoskeletal: Denies back pain or body aches or other injuries HEENT: denies headache, runny nose, ear pain Respiratory: Shortness of breath with exertion denies shortness of breath, cough Cardiovascular: Palpitations no chest pain : denies dysuria, frequency Abdomen: no nausea vomiting denies abdominal pain Extremities: no swelling, no pain Skin: no diaphoresis Yes all other systems are reviewed and are negative [facility] Past Medical History Attestation statement: The following information was validated with the patient. Medical History A-fib COVID-19 vaccine series completed History of cardioversion History of positive PPD On beta hina at home Osteoarthritis Osteoarthritis of left hip PAF (paroxysmal atrial fibrillation) Rosacea Surgical History History of cardiac radiofrequency ablation History of total left hip replacement History of total left knee replacement History of total right knee replacement Hx of section Hx of colonoscopy Hx of gastric bypass Family History Family History Father No problems noted. Mother No problems noted. 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 Exam Vital Signs: Vital Signs: Last Vital Signs Temp 98.2 F 01/12/22 13:47 Pulse 170 H 01/12/22 14:11 Resp 12 01/12/22 14:11 BP 105/83 01/12/22 14:11 Pulse Ox 97 01/12/22 14:11 O2 Del Method 01/12/22 14:11 BMI result Body Mass Index 35.4 General: Well-appearing well-nourished in no signs of distress HEENT: Normocephalic atraumatic Neck: No signs of JVD, no masses no tenderness or lymphadenopathy Cardiovascular: Irregular regular and rapid Respiratory: Clear to auscultation bilaterally Abdomen: Soft nontender no masses Extremities: Normal pedal pulses no signs of edema Skin: Dry warm no rashes Back: No tenderness full ROM MDM - Arrhythmia/Palpitations MDM Narrative Medical decision making narrative: Proximal atrial fibrillation with AFib with RVR patient admits with metoprolol give some diltiazem IV and orally I will check labs get a x-ray. 1439 Rate contolled after diltiazem Iv and po. I will get a EKG now. 1538 Symptoms have resolved feeling much better I will send home on xarelto with PCP and cardiology follow up. Differential Diagnosis Differential diagnosis: Likely palpitations, anxiety, sinus tachycardia and artial fibrillation Medical Records Attestation: I reviewed the patient's medical records. Lab Data Attestation: I reviewed the patient's lab results. Result diagrams: 01/12/22 14:19 01/12/22 14:19 Labs: Lab Results 01/12/22 01/12/22 01/12/22 Range/Units 14:19 14: 14:19 WBC 7.8 (4.8-10.8) X10*3/uL RBC 4.46 D (4.20-5.50) X10*6/uL Hgb 13.2 D (12.0-16.0) g/dl Hct 40.1 D (37.0-47.0) % MCV 89.9 (80.0-98.0) fL MCH 29.6 (27.0-33.0) pg MCHC 32.9 (31.0-35.0) g/dl RDW 13.8 (11.0-16.0) % Plt Count 265 D (160-400) X10*3/uL MPV 10.1 (9.4-12.3) fL Immature Gran % (Auto) 0.3 (0.0-0.4) % Neut % (Auto) 55.2 (45-73) % Lymph % (Auto) 35.0 (20-40) % [place] % (Auto) 7.3 (2-11) % Eos % (Auto) 1.8 (0-4) % Baso % (Auto) 0.4 (0-2) % Lymph # (Auto) 2.7 (1.2-4.9) X10*3/uL [place] # (Auto) 0.6 (0.1-1.2) X10*3/uL Eos # (Auto) 0.1 (0.0-0.4) X10*3/uL Baso # (Auto) 0.0 (0.0-0.2) X10*3/uL Abs Immat Gran (auto) 0.02 (0.00-0.03) X10*3/uL Absolute Neuts (auto) 4.3 (2.0-8.3) x10*3/uL Absolute Nucleated RBC 0.000 (0.0-0.012) X10*3/uL Nucleated RBC % (auto) 0.0 (0.0-0.2) /100WBC Sodium 141 (135-145) mmol/L Potassium 4.5 D (3.3-5.1) mmol/L Chloride 107 (96-108) mmol/L Carbon Dioxide 23 (22-29) mmol/L Anion Gap 16 (12-20) BUN 18 H D (9-16) mg/dL Creatinine 0.98 (0.5-1.4) mg/dL Estim Creat Clear Calc 76.2 Estimated GFR 57 Random Glucose 112 (60-115) mg/dL Calcium 9.4 D (8.4-10.2) mg/dL Troponin I High Sens 10.5 (<3.5-17.0) ng/L COVID-19 ([facility]) (Negative) COVID-19 Clin Com 01/12/22 Range/Units 14:19 WBC (4.8-10.8) X10*3/uL RBC (4.20-5.50) X10*6/uL Hgb (12.0-16.0) g/dl Hct (37.0-47.0) % MCV (80.0-98.0) fL MCH (27.0-33.0) pg MCHC (31.0-35.0) g/dl RDW (11.0-16.0) % Plt Count (160-400) X10*3/uL MPV (9.4-12.3) fL Immature Gran % (Auto) (0.0-0.4) % Neut % (Auto) (45-73) % Lymph % (Auto) (20-40) % [place] % (Auto) (2-11) % Eos % (Auto) (0-4) % Baso % (Auto) (0-2) % Lymph # (Auto) (1.2-4.9) X10*3/uL [place] # (Auto) (0.1-1.2) X10*3/uL Eos # (Auto) (0.0-0.4) X10*3/uL Baso # (Auto) (0.0-0.2) X10*3/uL Abs Immat Gran (auto) (0.00-0.03) X10*3/uL Absolute Neuts (auto) (2.0-8.3) x10*3/uL Absolute Nucleated RBC (0.0-0.012) X10*3/uL Nucleated RBC % (auto) (0.0-0.2) /100WBC Sodium (135-145) mmol/L Potassium (3.3-5.1) mmol/L Chloride (96-108) mmol/L Carbon Dioxide (22-29) mmol/L Anion Gap (12-20) BUN (9-16) mg/dL Creatinine (0.5-1.4) mg/dL Estim Creat Clear Calc Estimated GFR Random Glucose (60-115) mg/dL Calcium (8.4-10.2) mg/dL Troponin I High Sens (<3.5-17.0) ng/L COVID-19 ([facility]) Negative (Negative) COVID-19 Clin Com See Note ECG Data Attestation: I personally reviewed and interpreted this ECG as follows: ECG interpretation date: 01/12/22 ECG interpretation time: 14:39 Prior ECG tracings: not available for review Interpretation: Rate 154 afib with RVR no signs of ischemia Discharge Plan Discharge Clinical Impression: Atrial fibrillation Patient Disposition: Home, Self-Care Instructions: A-fib (Atrial Fibrillation) (DC) Additional Instructions: Please call to follow up with your doctor. If you have any other concerns please return to the ED. Prescriptions: New Eliquis 5 mg tablet 5 mg PO BID Qty: 120 0RF No Action metoprolol succinate 25 mg tablet extended release 24 hr 25 mg PO DAILY 90 Days Qty: 90 3RF ondansetron HCl 4 mg tablet 4 mg PO Q6H PRN (Reason: nausea and vomiting) 7 Days Qty: 28 0RF Eliquis 2.5 mg tablet 2.5 mg PO BID 42 Days Qty: 84 0RF docusate sodium 100 mg Capsule 100 mg PO BID 14 Days Qty: 28 0RF oxycodone 10 mg tablet 10 mg PO Q4H PRN (Reason: Pain, Moderate (Pain Scale 4-6) 7 Days Qty: 42 0RF acetaminophen 325 mg Tablet 650 mg PO Q6H PRN (Reason: Pain, Mild (Pain Scale 1-3)) 30 Days Qty: 240 0RF metronidazole 0.75 % cream 1 appl topical BID
[2022-01-12] MEDS: 0.9 % Sodium Chloride 1,000 ML 999 ML IV (14:24)
[2022-01-12] MEDS: dilTIAZem HCL 50 MG/10 ML VIAL 27.2155 MG IVPUSH (14:24)
[2022-01-12] MEDS: Rivaroxaban 20 MG TABLET PO (14:24)
[2022-01-12 14:25] LABS: MANUAL DIFF FLAG NO
[2022-01-12 14:26] LABS: Basophils Percent Auto 0.4 % (0-2); Eosinophils Absolute Auto 0.1 X10*3/uL (0.0-0.4); Eosinophils Percent Auto 1.8 % (0-4); Hematocrit 40.1 % (37.0-47.0); Hemoglobin 13.2 g/dl (12.0-16.0); Imm Gran Abs Auto 0.02 X10*3/uL (0.00-0.03); Imm Gran Pct Auto 0.3 % (0.0-0.4); Lymphocytes Absolute Auto 2.7 X10*3/uL (1.2-4.9); Mean Corpuscular HGB Conc 32.9 g/dl (31.0-35.0); Mean Corpuscular Hemoglobin 29.6 pg (27.0-33.0); Mean Corpuscular Volume 89.9 fL (80.0-98.0); Mean Platelet Volume 10.1 fL (9.4-12.3); Monocytes Absolute Auto 0.6 X10*3/uL (0.1-1.2); Monocytes Percent Auto 7.3 % (2-11); Neutrophils Absolute Auto 4.3 x10*3/uL (2.0-8.3); Neutrophils Percent Auto 55.2 % (45-73); Platelet Count 265 X10*3/uL (160-400); Red Blood Count 4.46 X10*6/uL (4.20-5.50); Red Cell Distribution Width 13.8 % (11.0-16.0); White Blood Count 7.8 X10*3/uL (4.8-10.8)
[2022-01-12] MEDS: dilTIAZem HCL SR 60 MG CAP.ER.12H PO (14:35)
[2022-01-12 14:39] LABS: COVID-19 Test Negative (Negative); IDNOW Serial# 16C4AD1C
[2022-01-12 14:42] LABS: Anion Gap 16 (12-20); Blood Urea Nitrogen 18 mg/dL (9-16); Calcium 9.4 mg/dL (8.4-10.2); Carbon Dioxide 23 mmol/L (22-29); Chloride 107 mmol/L (96-108); Creatinine Clr Calc Pharmacy 76.2; Estimated Glomerular Filt Rate 57; Glucose Random 112 mg/dL (60-115); Potassium 4.5 mmol/L (3.3-5.1); Sodium 141 mmol/L (135-145)
[2022-01-12 14:48] LABS: Troponin-I High Sensitivity 10.5 ng/L (<3.5-17.0)
== END 2022-01-12 16:21 | disposition home or self-care (01) ==
PROVIDERS: Emergency Provider Student in an Organized Health Care Education/Training Program; PCP Internal Medicine
DX: I48.0 Paroxysmal atrial fibrillation (principal); R00.2 Palpitations; Z20.822 Contact with and (suspected) exposure to COVID-19; Z96.643 Presence of artificial hip joint, bilateral; Z96.659 Presence of unspecified artificial knee joint; Z87.891 Personal history of nicotine dependence; Z79.01 Long term (current) use of anticoagulants
CPT/HCPCS: 36415; 80048; 84484; 85025; 87635; 93005; 96361; 96374; 99284

== ENCOUNTER → 2022-01-25 08:37 | Outpatient (BNVA) | payer OTHER, SELFPAY | PROVIDERS: PCP Internal Medicine; Referring Provider Internal Medicine; Visit Provider Internal Medicine | DX: I48.91 Unspecified atrial fibrillation (principal) | CPT/HCPCS: 93005 ==

== ENCOUNTER 2022-01-25 09:11 | Inpatient (IN) | payer OTHER, SELFPAY ==
[2022-01-25] VITALS (7 sets, daily range): BP systolic 94–107; BP diastolic 72–76; PULSE 85–140; RESP 14–23; TEMP 36.5–36.9; O2SAT 95–96; BMI 35.4
--- NOTE | ~2022-01-25 | XR_ITS ---
EXAMINATION: XR CHEST CLINICAL INFORMATION: Shortness of breath. COMPARISON: April 29, 2017. TECHNIQUE: Portable AP view of the chest was obtained. XR/XR chest 1V FINDINGS/IMPRESSION: The study is limited by portable technique and low lung volumes. There is a question of trace blunting of the left costophrenic angle, raising the possibility of trace left effusion. No effusion is seen on the right. No infiltrate or pneumothorax is identified. The cardiac silhouette is poorly evaluated. There are degenerative changes of the spine and shoulders, with mild thoracic dextrocurvature. Surgical clips project over the left upper quadrant.
--- NOTE | 2022-01-25 09:14 | ECG_ITS ---
Test Reason : AFIB Blood Pressure : / mmHG Vent. Rate : 138 BPM Atrial Rate : 000 BPM P-R Int : 000 ms QRS Dur : 074 ms QT Int : 280 ms P-R-T Axes : 000 013 178 degrees QTc Int : 424 ms Atrial fibrillation with rapid ventricular response ST & T wave abnormality, consider anterolateral ischemia Abnormal ECG When compared with ECG of 12-JAN-2022 13:46, T wave inversion now evident in Anterolateral leads Referred By: Isidro Christensen Electronically Signed By:JUNI ORTEGA MD
--- NOTE | 2022-01-25 09:18 | ED_ITS ---
HPI - SOB/Dyspnea General Chief Complaint: General Medical Stated Complaint: a-fib Time Seen by Provider: 01/25/22 09:14 Source: patient Mode of arrival: ambulatory Limitations: no limitations History of Present Illness HPI Narrative: Patient was recently with rapid afib. Patient currently on eliquis for afib MD elicited complaint: shortness of breath Pertinent past history: other (atrial fibrillation) Onset (ago): week(s) Timing: constant Severity: mild Relieving factors: nothing Associated symptoms: denies other symptoms Related Data Home Medications Medication Instructions Recorded Confirmed metoprolol succinate 25 mg 1 tab PO BID 01/25/22 01/25/22 tablet,extended release 24 hr Previous Rx's Medication Instructions Recorded apixaban 5 mg tablet (Eliquis) 5 mg PO BID #120 tabs 01/12/22 Allergies Allergy/AdvReac Type Severity Reaction Status Date / Time Penicillins [PENICILLINS] Allergy Intermediate TONGUE Verified 01/25/22 08:47 SWELLING,SKIN PEELING ON FINGERS Review of Systems Constitutional: Constitutional: Reports no additional constitutional complaints Eyes: Eyes: Reports no additional eye complaints ENT: Denies dizziness Cardiovascular: Cardiovascular: Reports no additional cardiovascular complaints Respiratory: Respiratory: Reports as per HPI Gastrointestinal: Gastrointestinal: Reports no additional gastrointestinal complaints Genitourinary: Genitourinary: Reports no additional female genitourinary complaints Musculoskeletal: Musculoskeletal: Reports no additional musculoskeletal complaints Integumentary/Breasts: Skin/Breast: Denies rash Neurologic: Reports system reviewed and no additional complaints, except as d ocumented, Denies dizziness and Denies Sensory deficit (Neuro) Psychiatric: Psychiatric: Denies anxiety [facility] Past Medical History Medical History (Updated 01/25/22 @ 11:17 by Pamella Del Cid NP) A-fib COVID-19 vaccine series completed History of cardioversion History of positive PPD Osteoarthritis Rosacea Surgical History History of cardiac radiofrequency ablation History of total left hip replacement History of total left knee replacement History of total right knee replacement Hx of section Hx of colonoscopy Hx of gastric bypass Family History Family History Father No problems noted. Mother No problems noted. 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 Exam Vital Signs: Vital Signs: Last Vital Signs Temp 98.0 F 01/25/22 09:16 Pulse 94 01/25/22 10:14 Resp 14 01/25/22 10:14 BP 94/73 01/25/22 10:14 Pulse Ox 96 01/25/22 09:16 O2 Del Method 01/25/22 09:16 BMI result Body Mass Index 35.4 Const: General: healthy appearing Nutritional Appearance: obese Orientation/consciousness: oriented to person and patient oriented x3 Limitations: no limitations HEENT: Head: Yes normal to inspection Ears: external ears normal General nose exam: Normal external nose present Mouth: Normal oral and palatal mucosa present and oropharynx normal Throat: Yes posterior oropharynx normal Eyes: General: appearance normal, both eyes and all related structures Neck: Other: supple Neck: Yes normal visual inspection Chest: Chest palpation & inspection: normal inspection of the chest Resp: Auscultation: clear to auscultation bilaterally Cardio: Other: IRRR no murmur Jugular venous distension: no JVD GI: Inspection: Yes normal to inspection Palpation (GI): Soft to palpation, nontender and No hepatosplenomegaly present Auscultation: normal bowel sounds : General: Yes no CVA tenderness Back/Spine/Pelvis: Back: no CVA tenderness Skin: General skin exam: no rashes or lesions noted Neuro: General: oriented to person and patient oriented x3 Cranial nerves: Yes CN's II-XII intact bilaterally Motor exam (neuro): 5/5 motor strength present throughout Sensory Exam: No Sensory deficit (Neuro) Extrem: General: Yes normal to inspection Psych: Appearance: grossly normal Course Reevaluation(s) Reevaluation #1: patient in slower Afib, troponin negative, will repeat eKG and admit for ERVIN and cardioversion Time: 10:31 Reevaluation #2: repeat EKG afib with rate 110, flipped ts laterally, no changes from prior Time: 11:27 MDM - SOB/Dyspnea Lab Data Result diagrams: 01/25/22 09:29 01/25/22 09:29 Labs: Lab Results 01/25/22 01/25/22 01/25/22 Range/Units 09:29 09:29 09:29 WBC 9.2 (4.8-10.8) X10*3/uL RBC 4.30 (4.20-5.50) X10*6/uL Hgb 12.8 (12.0-16.0) g/dl Hct 39.0 (37.0-47.0) % MCV 90.7 (80.0-98.0) fL MCH 29.8 (27.0-33.0) pg MCHC 32.8 (31.0-35.0) g/dl RDW 14.6 (11.0-16.0) % Plt Count 244 (160-400) X10*3/uL MPV 11.0 (9.4-12.3) fL Immature Gran % (Auto) 0.3 (0.0-0.4) % Neut % (Auto) 58.5 (45-73) % Lymph % (Auto) 32.6 (20-40) % [place] % (Auto) 6.5 (2-11) % Eos % (Auto) 1.7 (0-4) % Baso % (Auto) 0.4 (0-2) % Lymph # (Auto) 3.0 (1.2-4.9) X10*3/uL [place] # (Auto) 0.6 (0.1-1.2) X10*3/uL Eos # (Auto) 0.2 (0.0-0.4) X10*3/uL Baso # (Auto) 0.0 (0.0-0.2) X10*3/uL Abs Immat Gran (auto) 0.03 (0.00-0.03) X10*3/uL Absolute Neuts (auto) 5.4 (2.0-8.3) x10*3/uL Absolute Nucleated RBC 0.000 (0.0-0.012) X10*3/uL Nucleated RBC % (auto) 0.0 (0.0-0.2) /100WBC Sodium 139 (135-145) mmol/L Potassium 4.3 (3.3-5.1) mmol/L Chloride 107 (96-108) mmol/L Carbon Dioxide 22 (22-29) mmol/L Anion Gap 14 (12-20) BUN 15 (9-16) mg/dL Creatinine 0.93 (0.5-1.4) mg/dL Estim Creat Clear Calc 80.3 Estimated GFR > 60 Random Glucose 111 (60-115) mg/dL Calcium 8.9 (8.4-10.2) mg/dL Troponin I High Sens < 3.5 D (<3.5-17.0) ng/L ECG Data Attestation: I personally reviewed and interpreted this ECG as follows: Interpretation: atrial fibrillation rate 140, lateral st depressions Critical Care Time Critical Care Time Attestation: I spent 40 minutes of critical care, with interventions, assessments, speaking to patient, consultants, and family. Discharge Plan Discharge Clinical Impression: Atrial fibrillation with rapid ventricular response Patient Disposition: Admitted As Inpatient
[2022-01-25] MEDS: dilTIAZem HCL 50 MG/10 ML VIAL 10 MG IVPUSH (09:31)
[2022-01-25 09:37] LABS: MANUAL DIFF FLAG NO
[2022-01-25] MEDS: dilTIAZem HCL 125 MG in 0.9 % Sodium Chloride 100 ML 10 MG IVCONT (09:38)
[2022-01-25 09:41] LABS: Basophils Percent Auto 0.4 % (0-2); Eosinophils Absolute Auto 0.2 X10*3/uL (0.0-0.4); Eosinophils Percent Auto 1.7 % (0-4); Hemoglobin 12.8 g/dl (12.0-16.0); Imm Gran Abs Auto 0.03 X10*3/uL (0.00-0.03); Imm Gran Pct Auto 0.3 % (0.0-0.4); Lymphocytes Percent Auto 32.6 % (20-40); Mean Corpuscular HGB Conc 32.8 g/dl (31.0-35.0); Mean Corpuscular Hemoglobin 29.8 pg (27.0-33.0); Mean Corpuscular Volume 90.7 fL (80.0-98.0); Monocytes Absolute Auto 0.6 X10*3/uL (0.1-1.2); Monocytes Percent Auto 6.5 % (2-11); Neutrophils Absolute Auto 5.4 x10*3/uL (2.0-8.3); Neutrophils Percent Auto 58.5 % (45-73); Platelet Count 244 X10*3/uL (160-400); Red Cell Distribution Width 14.6 % (11.0-16.0); White Blood Count 9.2 X10*3/uL (4.8-10.8)
--- NOTE | 2022-01-25 09:43 | PC.NURSE ---
MD aware of soft BP in 90's systolic. Okay to continue diltiazem drip. Will continue to monitor.
[2022-01-25 10:01] LABS: Anion Gap 14 (12-20); Blood Urea Nitrogen 15 mg/dL (9-16); Calcium 8.9 mg/dL (8.4-10.2); Carbon Dioxide 22 mmol/L (22-29); Chloride 107 mmol/L (96-108); Creatinine Clr Calc Pharmacy 80.3; Estimated Glomerular Filt Rate > 60; Glucose Random 111 mg/dL (60-115); Potassium 4.3 mmol/L (3.3-5.1); Sodium 139 mmol/L (135-145)
[2022-01-25 10:02] LABS: Troponin-I High Sensitivity < 3.5 ng/L (<3.5-17.0)
--- NOTE | 2022-01-25 10:45 | ECG_ITS ---
Test Reason : repeat Blood Pressure : / mmHG Vent. Rate : 111 BPM Atrial Rate : 000 BPM P-R Int : 000 ms QRS Dur : 074 ms QT Int : 336 ms P-R-T Axes : 000 018 192 degrees QTc Int : 456 ms Atrial fibrillation with rapid ventricular response T wave abnormality, consider inferior ischemia T wave abnormality, consider anterolateral ischemia Abnormal ECG When compared with ECG of 25-JAN-2022 09:16, No significant change was found Referred By: Isidro Christensen Electronically Signed By:JUNI ORTEGA MD
--- NOTE | 2022-01-25 11:07 | PM.IMHP ---
History of Present Illness Date of Service: 01/25/22 Chief Complaint: Afib rvr 66 year old women presenting with sob, afib rvr. She has a hx of afib in the past but has been out of it for 6 years after ERVIN cardioversion and significant weight loss. She has been maintained on BB with no AC. Recently has gained alot of the weight back and now unfortunately seems to be in atrial fibrillation with ventricular response. She reports being short breath but denies chest pain, nausea, diarrhea. In the ED, EKG showed afib with RVR over 140's. She was started on IV diltiazem. She will be admitted for ERVIN cardioversion. Review of Systems Review of Systems: Denies any recent fever chills or decrease in appetite respiratory see HPI cardiovascular denies chest pain gastrointestinal denies any dysphagia abdominal pain nausea vomiting or diarrhea genitourinary denies any dysuria frequency or hematuria musculoskeletal denies any joint pain or swelling neuropsych denies any weakness or seizures all other systems reviewed are negative [facility] Medical History (Updated 01/25/22 @ 11:17 by Pamella Del Cid NP) A-fib COVID-19 vaccine series completed History of cardioversion History of positive PPD Osteoarthritis Rosacea Family History Father No problems noted. Mother No problems noted. Surgical History History of cardiac radiofrequency ablation History of total left hip replacement History of total left knee replacement History of total right knee replacement Hx of section Hx of colonoscopy Hx of gastric bypass Social History Are you a primary transitions rn care coordinator to a significant other at home: No Do you presently have visiting nurse or other home services: No Patient Tobacco Use Status: Former Tobacco user Quit Date: 10 yrs ago Second Hand Smoke Exposure: No Advance Directives: No Advance Directives Information Provided: Yes service: No Current occupational status: employed 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 Allergies Allergy/AdvReac Type Severity Reaction Status Date / Time Penicillins [PENICILLINS] Allergy Intermediate TONGUE Verified 01/25/22 08:47 SWELLING,SKIN PEELING ON FINGERS Active Medications: Current Medications Diltiazem HCl 125 mg/ Sodium (Chloride) 125 mls @ 0 mls/hr IVCONT .Q0M [facility]; Protocol Last Titration: 01/25/22 10:14 Dose: 15 mg/hr, 15 mls/hr Pharmacy Consult (Consult Rx Perform Med Rec) 1 each MISCELLANE ONCE PRN PRN Reason: Consult order Sodium Chloride (0.9 % Sodium Chloride Flush 3 Ml Syringe) 3 ml IVFLUSH QSHIFT [facility] Home Medications Medication Instructions Recorded Confirmed Last Taken Type metoprolol succinate 25 mg 1 tab PO BID 01/25/22 01/25/22 01/25/22 05:00 History tablet,extended release 24 hr Physical Exam Vital Signs and Narrative: Vital Signs: Last Vital Signs Temp 98.0 F 01/25/22 09:16 Pulse 94 01/25/22 10:14 Resp 14 01/25/22 10:14 BP 94/73 01/25/22 10:14 Pulse Ox 96 01/25/22 09:16 O2 Del Method 01/25/22 09:16 BMI result Body Mass Index 35.4 Appearing in no acute distress head is normocephalic atraumatic eyes pupils are PERRLA sclera is anicteric mouth throat mucous membranes are intact and moist neck is supple no lymphadenopathy, no JVD noted lung sounds are clear to auscultation heart regular rate rhythm, clear S1, S2 positive bowel sounds, abdomen is soft, nontender neuro patient is alert x3, no focal deficits Results Labs CBC and Chem 7: 01/25/22 09:29 01/25/22 09:29 Labs: Laboratory Results - last 24 hr 01/25/22 01/25/22 09:29 09:29 MCV 90.7 MCH 29.8 MCHC 32.8 RDW 14.6 Plt Count 244 MPV 11.0 Immature Gran % (Auto) 0.3 Neut % (Auto) 58.5 Lymph % (Auto) 32.6 [place] % (Auto) 6.5 Eos % (Auto) 1.7 Baso % (Auto) 0.4 Lymph # (Auto) 3.0 [place] # (Auto) 0.6 Eos # (Auto) 0.2 Baso # (Auto) 0.0 Abs Immat Gran (auto) 0.03 Absolute Neuts (auto) 5.4 Absolute Nucleated RBC 0.000 Nucleated RBC % (auto) 0.0 Anion Gap 14 Estim Creat Clear Calc 80.3 Estimated GFR > 60 Random Glucose 111 Calcium 8.9 Assessment and Plan (1) Atrial fibrillation with rapid ventricular response: Status: Acute Plan 66 year old women admitted with afib rvr. Seen by cardio as o/p with hx of afib in the past. acute on chronic paroxysmal afib rvr symptomatic with sob Started on diltiazem drip on eliquis as per cardio plan is for ERVIN cardioversion Obesity. BMI 35.4 Discussed the importance of weight reduction as this may be contributing to worsening of other comorbidities DVT prophylaxis with Eliquis Attending Dr. Hdz Full code 2 midnights for treatment of afib rvr and need for ERVIN cardioversion Quality Stroke Does the patient have a stroke diagnosis?: No VTE Prior VTE?: No VTE Risk Level:: Medical - moderate - high VTE Device Contraindication: Treatment Not Indicated VTE Drug Contraindication: N/A - Med Ordered
--- NOTE | 2022-01-25 11:15 | PHA.MEDREC ---
Pharmacy Consult ? Medication Reconciliation Pharmacy has completed the medication reconciliation.
[2022-01-25 11:32] LABS: COVID-19 Test Negative (Negative); IDNOW Serial# 16C4AD1C
--- NOTE | 2022-01-25 14:26 | P.EN_ITS ---
Event Note Date of Service: 01/25/22 Event Note: This patient is seen and examined with APC. Patient was sent from cardiology office- due to AFib with RVR. She has history of AFib with RVR had cardioversion in the as past, maintained on beta- blockers. now coming back with some gain in the weight and also if the RVR. Lab imaging, EKG reviewed. CBC and BMP seems fine. cxr seems clear and add tsh for am physical exam: Appearance: Alert.? Oriented X3.? not in distress.? cvs: irregular rythem, [id number]. res: air entry fair , no rales or wheezin abd: no rebound or guarding ,nt, bs present. ext pulses present , no cyanosis. neuro: axo3 , nonfocal. assessment and plan coordinated in APCs note, Agree with the plan in addition: started on Cardizem drip and Eliquis Morbid obesity- advised her to lose weight, cut down calories. cardio doug noted-npo for possible cardioversion in a m
--- NOTE | 2022-01-25 18:59 | PC.NURSE ---
Assumed care of this pt. at 1900 - report from Nina Hartmann RN
[2022-01-25] MEDS: dilTIAZem HCL 125 MG in 0.9 % Sodium Chloride 100 ML 15 MG IVCONT (22:15)
[2022-01-25] MEDS: Acetaminophen 325 MG TABLET 650 MG PO (22:24)
[2022-01-25] MEDS: Apixaban 5 MG TABLET PO (22:24)
[2022-01-26] VITALS (16 sets, daily range): BP systolic 82–127; BP diastolic 46–84; PULSE 57–114; RESP 14–20; TEMP 35.8–37; O2SAT 94–98; BMI 37.8
[2022-01-26 07:17] LABS: MANUAL DIFF FLAG NO
[2022-01-26 07:27] LABS: Basophils Percent Auto 0.4 % (0-2); Eosinophils Absolute Auto 0.2 X10*3/uL (0.0-0.4); Hematocrit 35.6 % (37.0-47.0); Hemoglobin 11.7 g/dl (12.0-16.0); Imm Gran Abs Auto 0.02 X10*3/uL (0.00-0.03); Imm Gran Pct Auto 0.4 % (0.0-0.4); Lymphocytes Absolute Auto 2.3 X10*3/uL (1.2-4.9); Lymphocytes Percent Auto 42.4 % (20-40); Mean Corpuscular HGB Conc 32.9 g/dl (31.0-35.0); Mean Corpuscular Hemoglobin 30.2 pg (27.0-33.0); Mean Corpuscular Volume 91.8 fL (80.0-98.0); Mean Platelet Volume 11.2 fL (9.4-12.3); Monocytes Absolute Auto 0.4 X10*3/uL (0.1-1.2); Monocytes Percent Auto 7.8 % (2-11); Neutrophils Absolute Auto 2.5 x10*3/uL (2.0-8.3); Platelet Count 213 X10*3/uL (160-400); Red Blood Count 3.88 X10*6/uL (4.20-5.50); Red Cell Distribution Width 14.7 % (11.0-16.0); White Blood Count 5.5 X10*3/uL (4.8-10.8)
[2022-01-26] MEDS: Apixaban 5 MG TABLET PO ×2 (07:54→20:16)
[2022-01-26] MEDS: 0.9 % Sodium Chloride Flush 3 ML SYRINGE IVFLUSH ×3 (07:56→20:17)
[2022-01-26 07:58] LABS: Anion Gap 14 (12-20); Blood Urea Nitrogen 11 mg/dL (9-16); Calcium 8.9 mg/dL (8.4-10.2); Carbon Dioxide 24 mmol/L (22-29); Chloride 109 mmol/L (96-108); Estimated Glomerular Filt Rate > 60; Glucose Random 102 mg/dL (60-115); Potassium 4.2 mmol/L (3.3-5.1); Sodium 143 mmol/L (135-145)
[2022-01-26 08:05] LABS: Thyroid Stimulating Hormone 1.19 uIU/mL (0.32-4.0)
--- NOTE | 2022-01-26 09:13 | MHC.CM.PN ---
PT REPORTS SHE LIVES WITH HER SON AND IS FULLY INDEPENDENT PT DENIES USE OF DME OR HOME SERVICES PT REPORTS SHE IS COVID-19 VACCINATED WITH PFIZER AND HAS RECEIVED ONE BOOSTER PCP: DIANA GAO PT WILL COMPLETE A NEW HCP TODAY NAMING HER DAUGHTER, ARSENIO VILLASENOR AND SON, PRASHANT VILLASENOR, HER AGENTS PT REPORTS SHE WAS AT WORK AT [address] [place] [address] WHEN HER SYMPTOMS STARTED, SO HER CAR IS STILL IN THE LOT SHE WILL DC HOME WITH NO SERVICES AND WILL TRANSPORT HERSELF
[2022-01-26] MEDS: Acetaminophen 325 MG TABLET 650 MG PO (09:30)
--- NOTE | 2022-01-26 10:42 | P.CONCA_ITS ---
History of Present Illness History of Present Illness Date of Service: 01/26/22 Requesting physician: Pamella Del Cid Consult reason: atrial fibrillation Chief complaint: AFIB RVR Narrative: Thank you for referring Vida in cardiology consultation today for atrial fibrillation with rapid ventricular response. She is a 66-year-old woman with prior history of paroxysmal atrial fibrillation status post ablation in 2011 and cardioversion x2, last 1 in 2014. Since then she has been managing rhythm and has done very well with weight loss generally. She is currently not on any oral anticoagulation given CHADSVASc score of 1. About 2 weeks ago she started having symptoms again and had gone to the emergency when she was noted to be in atrial fibrillation rapid ventricular response the symptoms of palpitation and symptoms exertional shortness of breath. At that time she was sent home with rate control with metoprolol and apixaban. She has had almost daily EKGs with her primary care physician and was told to follow-up with Dr. Hernandez who is her lean engineer. She came to office visit yesterday and was still noted to be in atrial fibrillation rapid ventricular response highly symptomatic and was therefore advised to be hospitalized. She was started on rate control medication since yesterday with IV Cardizem drip and her rate is better control although still rapid. She says she feels a lot better compared to yesterday but still knows that she is in atrial fibrillation. She denies any orthopnea, PND, leg edema. Denies any sudden weight gain or abdominal distension. She says since last year she had knee and bilateral hip surgery she has become more sedentary and has gained weight. In the past she has to have sleep apnea but this had resolved after she had lost weight. She denies any prior history of co ngestive heart failure, coronary artery disease, myocardial infarction, stroke. She denies any bleeding issues or neurologic events Review of Systems Constitutional: Constitutional: Reports no additional constitutional complaints Eyes: Eyes: Reports no additional eye complaints Cardiovascular: Cardiovascular: Denies chest pain, Reports rapid heart rate, Denies leg edema, Denies lightheadedness, Denies Loss of Consciousness, Reports palpitations, Reports dyspnea on exertion, Denies orthopnea and Denies paroxysmal nocturnal dyspnea Respiratory: Respiratory: Reports no additional respiratory complaints and Reports dyspnea on exertion Gastrointestinal: Gastrointestinal: Reports no additional gastrointestinal complaints Genitourinary: Genitourinary: Reports no additional female genitourinary complaints Musculoskeletal: Musculoskeletal: Reports no additional musculoskeletal complaints Integumentary/Breasts: Skin/Breast: Reports system reviewed and no additional complaints, except as docu Neurologic: Reports system reviewed and no additional complaints, except as documented Psychiatric: Psychiatric: Reports no additional psychiatric complaints Endocrine: Endocrine: Reports palpitations PMFSH Past Medical History Medical History A-fib COVID-19 vaccine series completed History of cardioversion History of positive PPD Osteoarthritis Rosacea Family History Family History Father No problems noted. Mother No problems noted. Surgical History Surgical History History of cardiac radiofrequency ablation History of total left hip replacement History of total left knee replacement History of total right knee replacement Hx of section Hx of colonoscopy Hx of gastric bypass Social History Social History Household Members: Children Household Members Other:: son Housing: House Are you a primary emergency care attendant to a significant other at home: No Do you presently have visiting nurse or other home services: No Patient Tobacco Use Status: Former Tobacco user Quit Date: 10 yrs ago Second Hand Smoke Exposure: No service: No Current occupational status: employed 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 Allergies Allergy/AdvReac Type Severity Reaction Status Date / Time Penicillins [PENICILLINS] Allergy Intermediate TONGUE Verified 01/25/22 08:47 SWELLING,SKIN PEELING ON FINGERS Active Medications: Current Medications Acetaminophen (Acetaminophen 325 Mg Tablet) 650 mg PO Q6H PRN PRN Reason: Pain, Mild (Pain Scale 1-3) Last Admin: 01/26/22 09:30 Dose: 650 mg Apixaban (Apixaban 5 Mg Tablet) 5 mg PO BID [facility] Last Admin: 01/26/22 07:54 Dose: 5 mg Diltiazem HCl 125 mg/ Sodium (Chloride) 125 mls @ 0 mls/hr IVCONT .Q0M [facility]; Protocol Last Titration: 01/26/22 07:57 Dose: 10 mg/hr, 10 mls/hr Ondansetron HCl (Ondansetron Hcl 4 Mg/2 Ml Vial) 4 mg IVPUSH Q8H PRN PRN Reason: Nausea and Vomiting Pharmacy Consult (Consult Rx Perform Med Rec) 1 each MISCELLANE ONCE PRN PRN Reason: Consult order Sodium Chloride (0.9 % Sodium Chloride Flush 3 Ml Syringe) 3 ml IVFLUSH QSHIFT [facility] Last Admin: 01/26/22 07:56 Dose: 3 ml Home Medications Medication Instructions Recorded Confirmed Last Taken Type metoprolol succinate 25 mg 1 tab PO BID 01/25/22 01/25/22 01/25/22 05:00 History tablet,extended release 24 hr Physical Exam Vital Signs: Vital Signs: Last Vital Signs Temp 98.2 F 01/26/22 07:20 Pulse 111 H 01/26/22 07:20 Resp 18 01/26/22 07:20 BP 110/84 01/26/22 07:20 Pulse Ox 95 01/26/22 07:20 O2 Del Method 01/26/22 07:20 BMI result Body Mass Index 37.8 Const: General: cooperative, comfortable, no acute distress, alert, awake and anxious Nutritional Appearance: obese Orientation/consciousness: patient oriented x3 Limitations: ambulation with cane HEENT: Head: Yes normocephalic and Yes atraumatic Neck: Neck: Yes trachea midline, Yes supple and Yes no JVD Resp: Effort & Inspection: normal respiratory effort Auscultation: clear to auscultation bilaterally Cardio: Jugular venous distension: no JVD Palpation: normal PMI Rate: tachycardic Rhythm: abnormal rhythm irregularly irregular Heart sounds: S1 normal heart sound present, S2 normal heart sound present, no click, no gallops and no murmurs GI: Auscultation: normal bowel sounds Skin: General skin exam: no rashes or lesions noted Neuro: General: patient oriented x3 and no focal motor deficits Extrem: General: Yes no clubbing, cyanosis or edema Objective Labs and Meds Result diagrams: 01/26/22 06:41 01/26/22 06:41 Lab results: Laboratory Results - last 24 hr 01/25/22 01/26/22 01/26/22 11:04 06:40 06:41 WBC 5.5 RBC 3.88 L Hgb 11.7 L Hct 35.6 L MCV 91.8 MCH 30.2 MCHC 32.9 RDW 14.7 Plt Count 213 MPV 11.2 Immature Gran % (Auto) 0.4 Neut % (Auto) 45.0 Lymph % (Auto) 42.4 H [place] % (Auto) 7.8 Eos % (Auto) 4.0 Baso % (Auto) 0.4 Lymph # (Auto) 2.3 [place] # (Auto) 0.4 Eos # (Auto) 0.2 Baso # (Auto) 0.0 Abs Immat Gran (auto) 0.02 Absolute Neuts (auto) 2.5 Absolute Nucleated RBC 0.000 Nucleated RBC % (auto) 0.0 Sodium Potassium Chloride Carbon Dioxide Anion Gap BUN Creatinine Estim Creat Clear Calc Estimated GFR Random Glucose Calcium TSH Cancelled COVID-19 ([facility]) Negative COVID-19 Clin Com See Note 01/26/22 06:41 WBC RBC Hgb Hct MCV MCH MCHC RDW Plt Count MPV Immature Gran % (Auto) Neut % (Auto) Lymph % (Auto) [place] % (Auto) Eos % (Auto) Baso % (Auto) Lymph # (Auto) [place] # (Auto) Eos # (Auto) Baso # (Auto) Abs Immat Gran (auto) Absolute Neuts (auto) Absolute Nucleated RBC Nucleated RBC % (auto) Sodium 143 Potassium 4.2 Chloride 109 H Carbon Dioxide 24 Anion Gap 14 BUN 11 Creatinine 0.78 Estim Creat Clear Calc 99.0 Estimated GFR > 60 Random Glucose 102 Calcium 8.9 TSH 1.19 COVID-19 ([facility]) COVID-19 Clin Com Imaging Radiologist's impression: Impressions Chest X-Ray 01/25/22 14:40 FINDINGS/IMPRESSION: The study is limited by portable technique and low lung volumes. There is a question of trace blunting of the left costophrenic angle, raising the possibility of trace left effusion. No effusion is seen on the right. No infiltrate or pneumothorax is identified. The cardiac silhouette is poorly evaluated. There are degenerative changes of the spine and shoulders, with mild thoracic dextrocurvature. Surgical clips project over the left upper quadrant. Assessment and Plan (1) Atrial fibrillation with rapid ventricular response: Status: Acute Highly symptomatic recurrent atrial fibrillation rapid ventricular response with symptoms related to loss of AV synchrony as well as fast heart rate. Some of her symptoms have improved with rate control. However she has done extremely well with rhythm control approach and will pursue it. Given that the rate is difficult control will schedule for ERVIN guided cardioversion which is already scheduled today. We discussed the need for ERVIN to rule out intracardiac thrombi prior to cardioversion. We discussed the risks, benefits, alternatives. She has undergone ERVIN before and understands them. If no intracardiac thrombi noted will pursue synchronized cardioversion. Discussed with her the risks, benefits, alternatives. She also understands the same. Will require Eliquis at least for 6 weeks post cardioversion. Will also most likely benefit antiarrhythmic drug therapy with flecainide, which she has in the past and tolerated well. She require evaluation for structural heart disease including LV systolic function and rule out coronary artery disease, can be pursued in near future as outpatient. Will also require sleep study given that she has gained weight and in the past it seems like her atrial fibrillation associated with sleep apnea. Thank you for allowing me to partake in the care. Will continue to follow with you Procedures Date of Service Date of Service: 01/26/22
--- NOTE | 2022-01-26 11:17 | HO.ANESPROP2 ---
[facility] Active Problems Active Problems: All Active Problems (Updated 01/25/22 @ 11:17 by Pamella Del Cid NP) Atrial fibrillation with rapid ventricular response (Acute) PAF (paroxysmal atrial fibrillation) (Acute) History of total right hip replacement (Acute) Total knee replacement status (Acute) Osteoarthritis of left hip (Acute) History of total left hip replacement (Acute) Primary osteoarthritis of right hip (Acute) Past Medical History Medical History A-fib COVID-19 vaccine series completed History of cardioversion History of positive PPD Osteoarthritis Rosacea Family History Family History Father No problems noted. Mother No problems noted. Family history of problems with anesthesia: No Surgical History Surgical History History of cardiac radiofrequency ablation History of total left hip replacement History of total left knee replacement History of total right knee replacement Hx of section Hx of colonoscopy Hx of gastric bypass History of Problems with Anesthesia: No Social History Social History Household Members: Children Household Members Other:: son Housing: House Are you a primary housekeeper caregiver to a significant other at home: No Do you presently have visiting nurse or other home services: No Patient Tobacco Use Status: Former Tobacco user Quit Date: 10 yrs ago Second Hand Smoke Exposure: No service: No Current occupational status: employed 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 Meds Allergies Allergy/AdvReac Type Severity Reaction Status Date / Time Penicillins [PENICILLINS] Allergy Intermediate TONGUE Verified 01/25/22 08:47 SWELLING,SKIN PEELING ON FINGERS Active Medications: Current Medications Acetaminophen (Acetaminophen 325 Mg Tablet) 650 mg PO Q6H PRN PRN Reason: Pain, Mild (Pain Scale 1-3) Last Admin: 01/26/22 09:30 Dose: 650 mg Apixaban (Apixaban 5 Mg Tablet) 5 mg PO BID [facility] Last Admin: 01/26/22 07:54 Dose: 5 mg Diltiazem HCl 125 mg/ Sodium (Chloride) 125 mls @ 0 mls/hr IVCONT .Q0M SHAYY; Protocol Last Titration: 01/26/22 07:57 Dose: 10 mg/hr, 10 mls/hr Ondansetron HCl (Ondansetron Hcl 4 Mg/2 Ml Vial) 4 mg IVPUSH Q8H PRN PRN Reason: Nausea and Vomiting Pharmacy Consult (Consult Rx Perform Med Rec) 1 each MISCELLANE ONCE PRN PRN Reason: Consult order Sodium Chloride (0.9 % Sodium Chloride Flush 3 Ml Syringe) 3 ml IVFLUSH QSHIFT [facility] Last Admin: 01/26/22 07:56 Dose: 3 ml Home Medications Medication Instructions Recorded Confirmed Last Taken Type metoprolol succinate 25 mg 1 tab PO BID 01/25/22 01/25/22 01/25/22 05:00 History tablet,extended release 24 hr Exam Exam Date and Time: January 26, 2022 1117 Height,Weight and Vital Signs: Height 5 ft 9 in Weight 116 kg Last Vital Signs Temp 97.7 F 01/26/22 11:10 Pulse 114 H 01/26/22 11:10 Resp 16 01/26/22 11:10 BP 111/76 01/26/22 11:10 Pulse Ox 95 01/26/22 11:10 O2 Del Method 01/26/22 11:10 Pertinent Lab Results Pertinent Lab Results: Laboratory Tests 01/25/22 01/25/22 01/25/22 09:29 09:29 09:29 WBC 9.2 RBC 4.30 Hgb 12.8 Hct 39.0 MCV 90.7 MCH 29.8 MCHC 32.8 RDW 14.6 Plt Count 244 MPV 11.0 Immature Gran % (Auto) 0.3 Neut % (Auto) 58.5 Lymph % (Auto) 32.6 [place] % (Auto) 6.5 Eos % (Auto) 1.7 Baso % (Auto) 0.4 Lymph # (Auto) 3.0 [place] # (Auto) 0.6 Eos # (Auto) 0.2 Baso # (Auto) 0.0 Abs Immat Gran (auto) 0.03 Absolute Neuts (auto) 5.4 Absolute Nucleated RBC 0.000 Nucleated RBC % (auto) 0.0 Sodium 139 Potassium 4.3 Chloride 107 Carbon Dioxide 22 Anion Gap 14 BUN 15 Creatinine 0.93 Estim Creat Clear Calc 80.3 Estimated GFR > 60 Random Glucose 111 Calcium 8.9 Troponin I High Sens < 3.5 D TSH COVID-19 ([facility]) COVID-19 Clin Com 01/25/22 01/26/22 01/26/22 11:04 06:40 06:41 WBC 5.5 RBC 3.88 L Hgb 11.7 L Hct 35.6 L MCV 91.8 MCH 30.2 MCHC 32.9 RDW 14.7 Plt Count 213 MPV 11.2 Immature Gran % (Auto) 0.4 Neut % (Auto) 45.0 Lymph % (Auto) 42.4 H [place] % (Auto) 7.8 Eos % (Auto) 4.0 Baso % (Auto) 0.4 Lymph # (Auto) 2.3 [place] # (Auto) 0.4 Eos # (Auto) 0.2 Baso # (Auto) 0.0 Abs Immat Gran (auto) 0.02 Absolute Neuts (auto) 2.5 Absolute Nucleated RBC 0.000 Nucleated RBC % (auto) 0.0 Sodium Potassium Chloride Carbon Dioxide Anion Gap BUN Creatinine Estim Creat Clear Calc Estimated GFR Random Glucose Calcium Troponin I High Sens TSH Cancelled COVID-19 ([facility]) Negative COVID-19 [employer] Com See Note 01/26/22 06:41 WBC RBC Hgb Hct MCV MCH MCHC RDW Plt Count MPV Immature Gran % (Auto) Neut % (Auto) Lymph % (Auto) [place] % (Auto) Eos % (Auto) Baso % (Auto) Lymph # (Auto) [place] # (Auto) Eos # (Auto) Baso # (Auto) Abs Immat Gran (auto) Absolute Neuts (auto) Absolute Nucleated RBC Nucleated RBC % (auto) Sodium 143 Potassium 4.2 Chloride 109 H Carbon Dioxide 24 Anion Gap 14 BUN 11 Creatinine 0.78 Estim Creat Clear Calc 99.0 Estimated GFR > 60 Random Glucose 102 Calcium 8.9 Troponin I High Sens TSH 1.19 COVID-19 ([facility]) COVID-19 Clin Com Airway Mallampati Class: II TM Dist: >3cm Neck ROM: Full Loose/Missing/Broken Teeth: No Heart: RRR Lungs: CTA Assessment and Plan Assessment Anesthesia Assessment: Anesthesia Plan Discussed and Chart Reviewed Final Anesthetic Review Family History of Problems with Anesthesia: No History of Problems with Anesthesia: No NPO: Yes ASA Class: III Final Preanesthetic Review: Meds/Allgs Chart Reviewed, Consent Obtained/Reviewed and Anes Risks/Benef Reviewed Patient Risk: Intermediate Procedure Risk: Intermediate Anesthetic Plan Anesthetic Plan: MAC: Disposition: Standard PACU
--- NOTE | 2022-01-26 11:38 | CA_ITS ---
Transesophageal Echocardiogram Patient (Last, First, Middle): Vida Lema M Gender: Female Date of : 1955 Age: 66 Procedure Date: 01/26/2022 Procedure Type: Transesophageal Echocardiogram [place] [facility] [place]: 175. cm Weight: 111. kg BSA: 2.25 m2 Heart Rate: bpm BP: 196 / 76 mmHg Automobile Locator: SB Referring MD: Bill Sánchez MD Clinical Documentation Nurse: Bill Sánchez MD Symptoms: pre cardioversion Conclusion: ??? 1. Normal LV systolic function next 2. Moderate biatrial enlargement, right greater than left 3. No intracardiac shunting next 4. No intracardiac thrombi, masses, vegetations 4. Moderate mitral regurgitation 5. Normal RV systolic pressure 6. No gross pericardial effusion Findings Procedure Information Consent was obtained prior to the procedure. Pre ERVIN oral cavity was checked and revealed mild overcrowding. The adult 3D probe was passed with no difficulty. This was a technically good study. Left Ventricle Normal left ventricular size, thickness, and systolic function. The visually estimated ejection fraction is between 55-60%. E/E prime ratio is <8, consistent with normal filling pressures. Right Ventricle Normal right ventricular cavity size. There is normal right ventricular systolic function. Atria The left atrium is moderately dilated. There is no evidence of interatrial shunt. the left atrium was dilated. The left atrial appendage was identified in multiple views. No thrombi or masses or significant smoke formation seen with the left atrial appendage as well as the left atrium. The left atrial appendage ejection velocity is reduced. The left upper, right upper and right lower pulmonary vein drain normally into the left atrium. The right atrium is moderately dilated. No masses, thrombi seen within the right atrium. IVC and SVC drain normally into the right atrium. The SVC is normal size and collapsible suggestive of normal right atrial pressures. The right atrial appendage is identified without any significant thrombi. No into atrial sent doing noted. Right atrium appears at least moderately enlarged. Aortic Valve Normal aortic valve structure and function. There is no evidence of thickening of the aortic valve. There is no aortic valve stenosis. There is no aortic valve regurgitation. Mitral Valve There is mild anterior and posterior mitral leaflet thickening. There is moderate mitral valve regurgitation. There is no mitral valve stenosis. Multiple jets of mitral regurgitation noted with measured regurgitant volume of 30 mL and regurgitant orifice area of 0.23 centimeters sq. Pulmonic Valve The pulmonic valve is normal. There is trace to mild pulmonic valve regurgitation. Tricuspid Valve Normal tricuspid valve structure. There is mild to moderate tricuspid valve regurgitation. The right ventricular systolic pressure is normal. Normal right atrial pressure. There is no evidence of pulmonary hypertension. Great Vessels All visible segments of the aorta are normal in size. Small plaque is seen in the sino tubular ridge and descending thoracic aorta. The visualized portions of the pulmonary artery and branches are normal. Venous The inferior vena cava was not well visualized. Pericardium/Pleural There is no evidence of pericardial effusion. Measurements Mitral Valve MV Pk E: 0.96 E'Lateral: 9.88 E/E' Lat: 9.70 MR Vol - PW Dopp: 29.90 MR VTI: 1.30 MR ERO: 23.00 MR Alias Manav: 0.42 MR RAD: 0.60 Diastolic Function MV Pk E: 0.96 E' Laterial: 9.88 E/E' Lat: 9.70 Tricuspid Valve TR Pk Manav: 2.41 TR Pk Grad: 23.00 RVSP: 23.00 Updated by Bill Sánchez on 01:13 PM with Status of Final Bill Sánchez MD electronically signed on 01/26/2022 1:13:27 PM with status of Final
--- NOTE | 2022-01-26 11:39 | MHC.SHP ---
Pre-Procedural Eval Section A Date of Service: 01/26/22 The patient is an INPATIENT: Yes Changes since office visit: Yes Patient answered all questions; No Cold of Flu in the past 2 weeks, No New Medical Problems and No Changes in Medication The History & Physical has been completed within 30 days and I have reviewed it.: Yes Section B Chief Complaint: AFIB RVR Allergies: Allergies Allergy/AdvReac Type Severity Reaction Status Date / Time Penicillins [PENICILLINS] Allergy Intermediate TONGUE Verified 01/25/22 08:47 SWELLING,SKIN PEELING ON FINGERS Plan I have reviewed the history and physical and performed a pertinent physical examination on my patient. No changes have occurred unless specified.
--- NOTE | 2022-01-26 12:25 | ECG_ITS ---
Test Reason : S/P CARDIOVERSION Blood Pressure : / mmHG Vent. Rate : 059 BPM Atrial Rate : 059 BPM P-R Int : 160 ms QRS Dur : 076 ms QT Int : 438 ms P-R-T Axes : 040 010 155 degrees QTc Int : 433 ms Sinus bradycardia Nonspecific T wave abnormality Abnormal ECG When compared with ECG of 25-JAN-2022 11:12, Sinus rhythm has replaced Atrial fibrillation Vent. rate has decreased BY 52 BPM Nonspecific T wave abnormality has replaced inverted T waves in Inferior leads T wave inversion no longer evident in Anterior leads Referred By: Bill Sánchez Electronically Signed By:BILL SÁNCHEZ MD
--- NOTE | 2022-01-26 12:27 | HO.CARDIVERS ---
Cardioversion Procedure Note Cardioversion Date of Procedure: Today Ordering Provider: Myself Performing Provider: Myself Indication for Procedure: Symptomatic persistent atrial fibrillation Pre-Op Diagnosis: Same Post-Op Diagnosis: Sinus rhythm Performed with Transesophageal Echo: Yes ERVIN findings (if ERVIN Performed): Dictated separately History: See my consult note Consent: Verbal and Written consent was obtained from the patient before starting and after performing ERVIN and confirming oral anticoagulation use. The patient was made aware of the risk of synchronized cardioversion including risk, benefits, alternatives and 2nd opinion Procedure: After consent obtained, cardioversion pads were attached in anteroposterior configuration and the patient was sedated by the anesthesia team. Once adequate sedation achieved, patient was delivered 200 joules of biphasic synchronized energy in anteroposterior configuration Complications: None Impression: Successful conversion to sinus rhythm Recommendations: 1. 12 lead EKG 2. Start flecainide 100 mg b.i.d. along with metoprolol 25 mg b.i.d. 3. Discontinue Cardizem drip 4. Continue full oral anticoagulation Damian
--- NOTE | 2022-01-26 13:58 | P.PNIM_ITS ---
Subjective Subjective Date of Service: 01/26/22 Review of Systems Follow-up atrial fibrillation with rapid ventricular response Status post julia Denies chest pain, shortness of breath, nausea, vomiting, diarrhea Physical Exam Vital Signs: Vital Signs: Last Vital Signs Temp 98.6 F 01/26/22 12:32 Pulse 57 01/26/22 13:34 Resp 18 01/26/22 13:34 BP 116/83 01/26/22 13:34 Pulse Ox 97 01/26/22 13:34 O2 Del Method 01/26/22 13:34 O2 Flow Rate 4 01/26/22 12:42 BMI result Body Mass Index 37.8 Appearing in no acute distress lung sounds are clear to auscultation heart regular rate rhythm, clear S1, S2 positive bowel sounds, abdomen is soft, nontender neuro patient is alert x3, no focal deficits Objective Data Active Medications Acetaminophen (Acetaminophen 325 Mg Tablet) 650 mg PO Q6H PRN PRN Reason: Pain, Mild (Pain Scale 1-3) Last Admin: 01/26/22 09:30 Dose: 650 mg Documented By: ANGELICA Acetaminophen (Acetaminophen 325 Mg Tablet) 650 mg PO ONCE PRN PRN Reason: Pain, Mild (Pain Scale 1-3) Albuterol Sulfate (Albuterol Sulfate (0.083%) 2.5 Mg/3 Ml Vial.Neb) 2.5 mg INHALE ONCE PRN PRN Reason: Wheezing Apixaban (Apixaban 5 Mg Tablet) 5 mg PO BID [facility] Last Admin: 01/26/22 07:54 Dose: 5 mg Documented By: ANGELICA Flecainide Acetate (Flecainide Acetate 50 Mg Tablet) 100 mg PO BID [facility] Metoprolol Tartrate (Metoprolol Tartrate 25 Mg Tablet) 25 mg PO BID [facility]; Protocol Ondansetron HCl (Ondansetron Hcl 4 Mg/2 Ml Vial) 4 mg IVPUSH Q8H PRN PRN Reason: Nausea and Vomiting Pharmacy Consult (Consult Rx Perform Med Rec) 1 each MISCELLANE ONCE PRN PRN Reason: Consult order Sodium Chloride (0.9 % Sodium Chloride Flush 3 Ml Syringe) 3 ml IVFLUSH QSHIFT [facility] Last Admin: 01/26/22 07:56 Dose: 3 ml Documented By: ANGELICA Labs CBC & Chem 7: 01/26/22 06:41 01/26/22 06:41 Labs: Laboratory Results - last 24 hr 01/26/22 01/26/22 01/26/22 06:40 06:41 06:41 MCV 91.8 MCH 30.2 MCHC 32.9 RDW 14.7 Plt Count 213 MPV 11.2 Immature Gran % (Auto) 0.4 Neut % (Auto) 45.0 Lymph % (Auto) 42.4 H [place] % (Auto) 7.8 Eos % (Auto) 4.0 Baso % (Auto) 0.4 Lymph # (Auto) 2.3 [place] # (Auto) 0.4 Eos # (Auto) 0.2 Baso # (Auto) 0.0 Abs Immat Gran (auto) 0.02 Absolute Neuts (auto) 2.5 Absolute Nucleated RBC 0.000 Nucleated RBC % (auto) 0.0 Anion Gap 14 Estim Creat Clear Calc 99.0 Estimated GFR > 60 Random Glucose 102 Calcium 8.9 TSH Cancelled 1.19 Assessment and Plan (1) Atrial fibrillation with rapid ventricular response: Status: Acute Plan 66 year old women admitted with afib rvr. Seen by cardio as o/p with hx of afib in the past. acute on chronic paroxysmal afib rvr symptomatic with sob, resolved Started on diltiazem drip, now converted to normal sinus rhythm status post JULIA cardioversion Continue Eliquis, started on flecainide , continue metoprolol Monitor overnight as per Cardiology, discharge likely tomorrow Obesity. BMI 35.4 Discussed the importance of weight reduction as this may be contributing to worsening of other comorbidities Normocytic anemia No signs of bleeding Follow CBC DVT prophylaxis with Eliquis Attending Dr. Mc Full code Patient requires continued hospitalization due to for monitoring status post JULIA, started on new cardiac medications Quality Stroke Does the patient have a stroke diagnosis?: No VTE Prior VTE?: No VTE Risk Level:: Medical - moderate - high VTE Device Contraindication: Treatment Not Indicated VTE Drug Contraindication: N/A - Med Ordered
--- NOTE | 2022-01-26 14:04 | P.DS_ITS ---
DS: Providers Provider Date of admission: 01/25/22 11:23 Primary care physician: Flo Daigle MD Consults: 01/25/22 11:05 Consult to Cardiology Routine Consulting Provider: Bill Sánchez Reason for consultation: afib rvr Has provider been notified: No DS: Diagnosis Discharge Diagnosis (1) Atrial fibrillation with rapid ventricular response: Status: Resolved DS: Summary Hospital Course Hospital Course: 66 year old women presenting with sob, afib rvr. She has a hx of afib in the past but has been out of it for 6 years after ERVIN cardioversion and significant weight loss. She has been maintained on BB with no AC. Recently has gained alot of the weight back and now unfortunately seems to be in atrial fibrillation with ventricular response.? She reports being short breath but denies chest pain, nausea, diarrhea. In the ED, EKG showed afib with RVR over 140's. She was started on IV diltiazem. She will be admitted for ERVIN cardioversion.? acute on chronic paroxysmal afib rvr, patient treated with IV diltiazem drip, but since she remained symptomatic with persistent atrial fibrillation she underwent ERVIN cardioversion and converted to normal sinus rhythm, She has been continued on Eliquis and metoprolol and has been started on flecainide by Dr. Silva, patient was monitored overnight and remains in normal sinus rhythm and is asymptomatic therefore being discharged home with recommendation to follow up with Cardiology next 1-2 weeks Obesity. BMI 35.4 Discussed the importance of weight reduction as this may be contributing to worsening of other comorbidities Normocytic anemia, No signs of bleeding, hematocrit stable Time Spent with Patient Time attestation: Total time spent providing and/or coordinating discharge services: Physical Exam Vital Signs: Vital Signs: Last Vital Signs Temp 98.6 F 01/26/22 12:32 Pulse 57 01/26/22 13:34 Resp 18 01/26/22 13:34 BP 116/83 01/26/22 13:34 Pulse Ox 97 01/26/22 13:34 O2 Del Method 01/26/22 13:34 O2 Flow Rate 4 01/26/22 12:42 BMI result Body Mass Index 37.8 DS: Data Data Completed and Pending Completed studies during hospitalization [Text1]: Procedures Replacement of Left Hip Joint with Synthetic Substitute, Uncemented, Open Approach (11/18/20) Replacement of Right Hip Joint with Ceramic Synthetic Substitute, Uncemented, Open Approach (09/08/21) Transfusion of Nonautologous Red Blood Cells into Peripheral Vein, Percutaneous Approach (11/18/20) Labs on day of discharge: Laboratory Results - last 24 hr 01/26/22 01/26/22 01/26/22 06:40 06:41 06:41 WBC 5.5 RBC 3.88 L Hgb 11.7 L Hct 35.6 L MCV 91.8 MCH 30.2 MCHC 32.9 RDW 14.7 Plt Count 213 MPV 11.2 Immature Gran % (Auto) 0.4 Neut % (Auto) 45.0 Lymph % (Auto) 42.4 H [place] % (Auto) 7.8 Eos % (Auto) 4.0 Baso % (Auto) 0.4 Lymph # (Auto) 2.3 [place] # (Auto) 0.4 Eos # (Auto) 0.2 Baso # (Auto) 0.0 Abs Immat Gran (auto) 0.02 Absolute Neuts (auto) 2.5 Absolute Nucleated RBC 0.000 Nucleated RBC % (auto) 0.0 Sodium 143 Potassium 4.2 Chloride 109 H Carbon Dioxide 24 Anion Gap 14 BUN 11 Creatinine 0.78 Estim Creat Clear Calc 99.0 Estimated GFR > 60 Random Glucose 102 Calcium 8.9 TSH Cancelled 1.19 Discharge Plan Discharge Patient Disposition: Home, Self-Care Discharge Diagnosis: Atrial fibrillation with rapid ventricular response Referrals: Flo Daigle MD [Primary Care Provider] - 1 Week Discharge Medications: New flecainide 50 mg Tablet 100 mg PO BID Qty: 120 0RF Continued Eliquis 5 mg tablet 5 mg PO BID Qty: 120 0RF metoprolol succinate 25 mg tablet extended release 24 hr 1 tab PO BID Discharge Orders: Discharge Order (Routine); Ordered 01/27/22 Ordered By: Harlan Philippe Diet: Advance to usual diet Activity on Discharge: As tolerated Stand Alone Forms: Patient Portal Discharge page Care Plan Goals: Complete resolution of symptoms Health Concerns: Atrial fibrillation with rapid ventricular response Plan of Treatment: Follow-up with primary care provider as needed Follow-up with the pacs administrator in [address] Sánchez Take all medications as prescribed Assessment: See discharge summary Discharge Date/Time: 01/27/22 10:22
[2022-01-26] MEDS: Flecainide Acetate 50 MG TABLET 100 MG PO ×2 (14:48→20:16)
[2022-01-26] MEDS: Metoprolol Tartrate 25 MG TABLET PO ×2 (14:48→20:16)
[2022-01-27 03:21] VITALS: BP 101/63; PULSE 65; RESP 18; TEMP 36.1; O2SAT 98
[2022-01-27 07:18] VITALS: BP 108/76; PULSE 73; RESP 16; TEMP 36.1; O2SAT 95
--- NOTE | 2022-01-27 09:22 | P.PNCA_ITS ---
Subjective Subjective Date of Service: 01/27/22 <INDIRA Viera - Last Filed: 01/27/22 09:46> 01/27/22 <Bill Sánchez MD - Last Filed: 01/27/22 09:54> Principal diagnosis: atrial fibrillation, s/p ERVIN CVR <INDIRA Viera Last Filed: 01/27/22 09:46> Interval history: Seen at 0830. Today she reports feeling very well and would like to go home. No longer having heart palpitations. No chest pains, sob, dizziness. No signs of bleeding. Ambulating in room, steady on feet. Tele monitor continues to show SR. <INDIRA Viera Last Filed: 01/27/22 09:46> Review of Systems Review of Systems as above <INDIRA Viera Last Filed: 01/27/22 09:46> Yes all other systems are reviewed and are negative <INDIRA Viera - Last Filed: 01/27/22 09:46> Physical Exam Vital Signs: Last Vital Signs Temp 97.0 F 01/27/22 07:18 Pulse 73 01/27/22 07:18 Resp 16 01/27/22 07:18 BP 108/76 01/27/22 07:18 Pulse Ox 95 01/27/22 07:18 O2 Del Method 01/27/22 07:18 O2 Flow Rate 4 01/26/22 12:42 BMI result Body Mass Index 37.8 <INDIRA Viera Last Filed: 01/27/22 09:46> Const General: cooperative, healthy appearing, no acute distress, alert and awake <INDIRA Viera Last Filed: 01/27/22 09:46> Orientation/consciousness: patient oriented x3 <INDIRA Viera Last Filed: 01/27/22 09:46> Neck Neck: Yes normal visual inspection <INDIRA Viera Last Filed: 01/27/22 09:46> Resp Effort & Inspection: normal respiratory effort, able to speak in complete sentences and not labored <INDIRA Viera - Last Filed: 01/27/22 09:46> Auscultation: clear to auscultation bilaterally, no crackles, no rales, no rhonchi and no wheezes <Nikia Love INDIRA - Last Filed: 01/27/22 09:46> Cardio Palpation: normal PMI <CATRACHO ViearC - Last Filed: 01/27/22 09:46> Rate: regular rate <Nikia Love CATRACHOC - Last Filed: 01/27/22 09:46> Rhythm: regular rhythm <CATRACHO VieraC - Last Filed: 01/27/22 09:46> Heart sounds: S1 normal heart sound present and S2 normal heart sound present <Nikia Love INDIRA - Last Filed: 01/27/22 09:46> Neuro General: patient oriented x3 <Nikia Love INDIRA - Last Filed: 01/27/22 09:46> Extrem General: Yes normal to inspection <Nikia Love INDIRA - Last Filed: 01/27/22 09:46> Objective Labs and Meds Result diagrams: : 01/26/22 06:41 01/26/22 06:41 <Nikia Love CATRACHOC - Last Filed: 01/27/22 09:46> Progress Note: A&P Assessment and plan (1) Atrial fibrillation with rapid ventricular response: Status: Acute <Nikia Love INDIRA - Last Filed: 01/27/22 09:46> Assessment and Plan: Hx AF with Prior ablation, 2011 and CVR, last 2014. Admit with symptomatic PAF, RVR. Treated initially with rate control, then she underwent a ERVIN CVR yesterday with Dr Sánchez, with successful conversion back to SR. ERVIN showed normal EF, mod biatrial enlargement, no thrombi, mod MRDigna Liang has shown ongoing SR since time of CVR, with rates mostly in 60s. She is now on Flecanide to help maintain SR and continues on Metoprolol 25mg bid. She was started on Eliquis for anticoagulation. No bleeding issues reported. Today reports feeling well and ready to go home. Can be discharged from cardiology perspective. We will arrange for outpt Sleep study and cardiology follow up. Her primary charter driver is Dr Hernandez. <INDIRA Viera - Last Filed: 01/27/22 09:46> Hx AF with Prior ablation, 2011 and CVR, last 2014. Admit with symptomatic PAF, RVR. Treated initially with rate control, then she underwent a ERVIN CVR yesterday with Dr Sánchez, with successful conversion back to SR. ERVIN showed normal EF, mod biatrial enlargement, no thrombi, mod MR. Tele has shown ongoing SR since time of CVR, with rates mostly in 60s. She is now on Flecanide to help maintain SR and continues on Metoprolol 25mg bid. She was started on Eliquis for anticoagulation. No bleeding issues reported. Today reports feeling well and ready to go home. Can be discharged from cardiology perspective. We will arrange for outpt Sleep study and cardiology follow up. Her primary charter driver is Dr Hernandez. Patient seen and examined. Case discussed with Nikia. Patient feels extremely well today. Remains in sinus rhythm. She underwent ERVIN guided cardioversion yesterday. She has biatrial enlargement least moderate right greater than left. She also has moderate mitral regurgitation. All these findings were slightly new. She require further workup for biatrial chamber enlargement which most likely is related to sleep apnea. Urgent workup for sleep apnea should be pursued to prevent recurrent atrial fibrillation. Also require workup for ischemic heart disease given that we are going to start on flecainide. Require Phuong myocardial perfusion imaging. Also or repeat echocardiogram transthoracic to better evaluate RV filling pressures as well as mitral regurgitation with quantitative analysis. Patient can be discharged home today on oral anticoagulation therapy along with antiarrhythmic drug therapy with flecainide and concomitant metoprolol therapy. Follow-up Holter monitor as outpatient. Will sign of the case <Bill Sánchez MD - Last Filed: 01/27/22 09:54> (2) PAF (paroxysmal atrial fibrillation): Status: Acute <INDIRA Viera - Last Filed: 01/27/22 09:46> Time Spent With Patient Time: Total time spent is greater than 50% in coordination of care (as documented) at patient's floor/unit and/or counseling patient: 18 <INDIRA Viera - Last Filed: 01/27/22 09:46> Progress Note: Quality Stroke Does the patient have a stroke diagnosis?: No <INDIRA Viera - Last Filed: 01/27/22 09:46> Procedures Date of Service Date of Service: 01/27/22 <INDIRA Viera - Last Filed: 01/27/22 09:46>
--- NOTE | 2022-01-27 09:42 | MHC.CM.PN ---
Patient has been medically cleared for discharge today; Discharge is Home (self-care). No IMM required.
[2022-01-27] MEDS: Metoprolol Tartrate 25 MG TABLET PO (10:09)
[2022-01-27] MEDS: Flecainide Acetate 50 MG TABLET 100 MG PO (10:09)
[2022-01-27] MEDS: Apixaban 5 MG TABLET PO (10:09)
[2022-01-27] MEDS: 0.9 % Sodium Chloride Flush 3 ML SYRINGE IVFLUSH (10:10)
--- NOTE | 2022-01-27 13:32 | PM.DS ---
DS: Providers Provider Date of Service: 01/27/22 Date of admission: 01/25/22 11:23 Primary care physician: Flo Daigle MD Consults: 01/25/22 11:05 Consult to Cardiology Routine Consulting Provider: Bill Sánchez Reason for consultation: afib rvr Has provider been notified: No DS: Diagnosis Discharge Diagnosis (1) Atrial fibrillation with rapid ventricular response: Status: Acute (2) PAF (paroxysmal atrial fibrillation): Status: Acute DS: Summary Hospital Course Hospital Course: 66 year old women presenting with sob, afib rvr. She has a hx of afib in the past but has been out of it for 6 years after ERVIN cardioversion and significant weight loss. She has been maintained on BB with no AC. Recently has gained alot of the weight back and now unfortunately seems to be in atrial fibrillation with ventricular response.? She reports being short breath but denies chest pain, nausea, diarrhea. In the ED, EKG showed afib with RVR over 140's. She was started on IV diltiazem. She will be admitted for ERVIN cardioversion.? acute on chronic paroxysmal afib rvr, patient treated with IV diltiazem drip, but since she remained symptomatic with persistent atrial fibrillation she underwent ERVIN cardioversion and converted to normal sinus rhythm, She has been continued on Eliquis and metoprolol and has been started on flecainide by Dr. Silva, patient was monitored overnight and remains in normal sinus rhythm and is asymptomatic therefore being discharged home with recommendation to follow up with Cardiology next 1-2 weeks Obesity. BMI 35.4 Discussed the importance of weight reduction as this may be contributing to worsening of other comorbidities Normocytic anemia, No signs of bleeding, hematocrit stable Time Spent with Patient Time attestation: Total time spent providing and/or coordinating discharge services: Discharge coordination time: Greater than 30 minutes Quality: Safe Use of Opioids Does Pt have an Active Cancer Diagnosis on the Problem List?: No Quality: Stroke Does the patient have a stroke diagnosis?: No Physical Exam Vital Signs: Vital Signs: Last Vital Signs Temp 97.0 F 01/27/22 07:18 Pulse 73 01/27/22 07:18 Resp 16 01/27/22 07:18 BP 108/76 01/27/22 07:18 Pulse Ox 95 01/27/22 07:18 O2 Del Method 01/27/22 07:18 O2 Flow Rate 4 01/26/22 12:42 BMI result Body Mass Index 37.8 Const: Other: General awake alert, in no acute distress. Neck supple no JVD. CVS regular rate rhythm, Respiratory lungs clear to auscultation, no respiratory distress, no wheeze, no rhonchi. Gastrointestinal abdomen soft, nontender, bowel sounds audible, no guarding , no rigidity. Extremities no edema. Neuro nonfocal . Skin no rash Psych appropriate affect DS: Data Data Completed and Pending Completed studies during hospitalization [Text1]: Procedures Replacement of Left Hip Joint with Synthetic Substitute, Uncemented, Open Approach (11/18/20) Replacement of Right Hip Joint with Ceramic Synthetic Substitute, Uncemented, Open Approach (09/08/21) Transfusion of Nonautologous Red Blood Cells into Peripheral Vein, Percutaneous Approach (11/18/20) Discharge Plan Discharge Patient Disposition: Home, Self-Care Discharge Diagnosis: Atrial fibrillation with rapid ventricular response Referrals: Flo Daigle MD [Primary Care Provider] - 1 Week Discharge Medications: New flecainide 50 mg Tablet 100 mg PO BID Qty: 120 0RF Continued Eliquis 5 mg tablet 5 mg PO BID Qty: 120 0RF metoprolol succinate 25 mg tablet extended release 24 hr 1 tab PO BID Discharge Orders: Discharge Order (Routine); Ordered 01/27/22 Ordered By: Harlan Philippe Diet: Advance to usual diet Activity on Discharge: As tolerated Stand Alone Forms: Patient Portal Discharge page Care Plan Goals: Complete resolution of symptoms Health Concerns: Atrial fibrillation with rapid ventricular response Plan of Treatment: Follow-up with primary care provider as needed Follow-up with the 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
--- NOTE | 2022-01-27 14:35 | HO.POSTANES ---
Post Anesthesia Evaluation Post Anesthesia Evaluation Vital Signs: Vital Signs Temp Pulse Resp BP Pulse Ox O2 Del Method 01/27/22 07:18 97.0 F 73 16 108/76 95 Room Air 01/27/22 03:21 97.0 F 65 18 101/63 98 Room Air Anesthesia: Monitored Mental Status: Awake Pain Control: Satisfactory Nausea/Vomiting: None Hydration: Adequate Anesthesia-Related Issues: No Anes. Related Issues
== END 2022-01-27 10:22 | disposition home or self-care (01) | DRG 201 ==
LOC: HO.ED 10:47 → HO.EDOVER 11:25 → HO.IMC 20:52
PROVIDERS: Internal Medicine Cardiovascular Disease; Admitting Provider Nurse Practitioner Acute Care; Emergency Provider Emergency Medicine; PCP Internal Medicine; Visit Provider Hospitalist
PROC: 5A2204Z Restoration of Cardiac Rhythm, Single (ICD-10-PCS; CPT 93312; principal; 2022-01-26 12:00)
PROC: 5A2204Z Restoration of Cardiac Rhythm, Single (ICD-10-PCS; 2022-01-26 12:00)
DX: I48.0 Paroxysmal atrial fibrillation (principal); E66.9 Obesity, unspecified; I34.0 Nonrheumatic mitral (valve) insufficiency; D64.9 Anemia, unspecified; Z87.891 Personal history of nicotine dependence; Z68.35 Body mass index [BMI] 35.0-35.9, adult; Z96.642 Presence of left artificial hip joint; Z96.651 Presence of right artificial knee joint; Z98.84 Bariatric surgery status; Z79.01 Long term (current) use of anticoagulants; Z79.899 Other long term (current) drug therapy
CPT/HCPCS: 36415; 71045; 80048; 84443; 84484; 85025; 87635; 92960; 93005; 96365; 96375; 99285; J2250; J2370

== ENCOUNTER → 2022-02-03 13:31 | Outpatient (BNVA) | payer OTHER, SELFPAY | PROVIDERS: PCP Internal Medicine; Visit Provider Nurse Practitioner Family | DX: Z79.899 Other long term (current) drug therapy (principal) | CPT/HCPCS: 93005 ==

== ENCOUNTER → 2022-02-15 15:55 | Outpatient (REF) | payer OTHER, SELFPAY | LOC: HO.SL 15:55 | PROVIDERS: PCP Internal Medicine; Visit Provider Nurse Practitioner Family | DX: G47.33 Obstructive sleep apnea (adult) (pediatric) (principal); G47.10 Hypersomnia, unspecified | CPT/HCPCS: 95806 ==

== ENCOUNTER → 2022-02-23 14:11 | Outpatient (BNVA) | payer OTHER, SELFPAY | PROVIDERS: PCP Internal Medicine; Referring Provider Internal Medicine; Visit Provider Internal Medicine | DX: I48.0 Paroxysmal atrial fibrillation (principal); E66.01 Morbid (severe) obesity due to excess calories; G47.33 Obstructive sleep apnea (adult) (pediatric); Z79.899 Other long term (current) drug therapy | CPT/HCPCS: 93005 ==

== ENCOUNTER → 2022-03-05 09:45 | Outpatient (REF) | payer OTHER, SELFPAY ==
--- NOTE | ~2022-03-05 | NM_ITS ---
Lexiscan Myocardial perfusion study Indication: Agent evaluation, assess for coronary disease and ischemia Technique: The patient was brought in for a Lexiscan perfusion study on 03/05/2022 and was injected 0.4 mg of Lexiscan intravenously. Within a minute of this injection 40 mCi of sestamibi was given intravenously. Images were obtained using the SPECT gamma camera interlaced with the gating device. Images were obtained in supine position. Resting perfusion study was performed on 03/08/2022. Patient was administered 40 mCi of sestamibi intravenously at rest. Images were then obtained in supine position. Total DLP 101mGy-cm. Images were processed with the software and compared side to side in short axis, horizontal long axis and vertical long axis views. Findings: Raw acquisition reviewed. The stress perfusion study showed diminished tracer uptake in the distal lateral wall. There is improvement with CT attenuation correction suggestive of soft tissue attenuation artifact. The gated study shows normal LV systolic function with calculated LVEF of 71%. LV cavity is normal in size. The gated study shows normal wall thickening and contraction of segments. Resting study shows no significant perfusion abnormality. Gating at rest reveals normal wall motion with ejection fraction at 50%. The findings are consistent with reversible distal lateral defect, suspected to be from soft tissue attenuation artifact. NM/NM cardiolite stress test Impression: 1. Myocardial perfusion imaging study shows no clear evidence of any ischemia or infarction. Likely normal perfusion. 2. Gated LVEF is 70% during stress; 50% during rest. Correlate with echocardiogram. 3. Transient ischemic dilatation not present. EKG component of the test reported separately.
--- NOTE | 2022-03-05 09:59 | CA_ITS ---
Acquisition Time: 2022-03-05 10:05:26 Total Exercise Time: 00:02:00 Test Indications: PAF Medications: METOPROLOL Protocol: LEXISCAN Max HR: 097 BPM 62% of Pred: 156 BPM Max BP: 120/070 mmHG Max Work Load: 1.6 METS Pharmacological stress test with Lexiscan injection, while walking slowly on treadmill, without anginal symptoms, without arrythmia, with normotensive response to injection, with EKG changes meeting criteria for ischemia inferiorly and bordeline V3-V6. In Recovery EKG changes gradually improved. Nuclear images pending. Test reviewed with Dr Jones Referred By: Robert Hernandez Overread By: MARLON BATRES
== END ==
LOC: HO.CARD 09:45
PROVIDERS: PCP Internal Medicine; Visit Provider Internal Medicine Cardiovascular Disease
DX: I48.0 Paroxysmal atrial fibrillation (principal)
CPT/HCPCS: 78452; 93017; A9500; J0280; J2785

== ENCOUNTER → 2022-03-11 13:38 | Outpatient (REF) | payer OTHER, SELFPAY ==
--- NOTE | 2022-03-11 13:42 | HM_ITS ---
Conclusion: 1. Patient was monitored for total period of 3 days 2. Baseline was normal sinus rhythm with average heart of 64 beats per minute with frequent sinus bradycardia, 34% of the time 3. Very rare PACs noted 4. No significant pauses noted 5. No patient reported events MTDD
--- NOTE | 2022-03-11 13:42 | CA_ITS ---
Transthoracic Echocardiogram Patient (Last, First, Middle): Vida Lema M Gender: Female Date of : 1955 Age: 66 Procedure Date: 03/11/2022 Procedure Type: Transthoracic Echocardiogram Location: OP Height: 175.26 cm Weight: 108.86 kg BSA: 2.23 m2 Heart Rate: 63 bpm BP: 118 / 76 mmHg Bullet Maker: SB Referring MD: Bill Sánchez MD Turnstile Attendant: Bill Sánchez MD Symptoms: I48.0 - Paroxysmal atrial fibrillation Study Quality: Adequate w contrast ECG Rhythm: Sinus Conclusions: - 1. Normal systolic and diastolic function 2. Mild mitral regurgitation 3. Normal RV systolic pressure 4. No pericardial effusion Findings Procedure Information Contrast agent, definity, is being given per protocol without apparent complications. Left Ventricle Normal left ventricular size, thickness, and systolic function. The visually estimated ejection fraction is between 60-65%. Spectral Doppler is indicative of a normal filling pattern. Right Ventricle Normal right ventricular cavity size and systolic function. Atria The left atrium is likely dilated. Interatrial shunt cannot be excluded. The right atrium is normal in size. Aortic Valve Normal aortic valve structure and function. There is no aortic valve stenosis. There is no aortic valve regurgitation. Mitral Valve Normal mitral valve structure and function. There is mild mitral valve regurgitation. There is no mitral valve stenosis. Pulmonic Valve The pulmonic valve is likely normal. There is trace pulmonic valve regurgitation. Tricuspid Valve Normal tricuspid valve structure. There is trace tricuspid valve regurgitation. The right ventricular systolic pressure is normal. The right ventricular systolic pressure is 24 mmHg. Normal right atrial pressure. There is no evidence of pulmonary hypertension. Great Vessels All visible segments of the aorta are normal in size. The pulmonary artery was not well visualized. Venous The inferior vena cava is normal in size and collapses greater than 50% with inspiration. Pericardium/Pleural There is no evidence of pericardial effusion. Measurements 2D Linear Measurements IVSd: 0.81 0.6-0.9/0.6-1.0 cm LVIDd: 5.60 3.9-5.3/4.2-5.9 cm LVIDd Index: 2.51 2.4-3.2/2.2-3.1 cm/m2 LVIDs: 4.07 2.0-3.6 cm LVPWd: 0.57 0.7-1.1 cm LA Diam: 4.50 2.7-3.8/3.0-4.0 cm LAIDs Index: 2.02 1.5-2.3 cm/m2 LV Mass: 171.33 67-162/88-224 g LV Mass Index: 76.83 43-95/49-115 g/m2 LVOT Diam: 2.10 3.0+(-)1.3 cm 2D Systolic Function EF 4C: 55.80 >55% EF 2C: 57.50 >55% EF BiP: 57.20 >55% Mitral Valve MV Pk E: 0.76 MV PK A: 0.51 MV Decel Time: 200.00 E/A: 1.50 E'Lateral: 12.90 E'Medial: 8.27 E/E' Med: 9.20 E/E' Lat: 5.90 PHT: 59.00 MVA PHT: 3.73 Decel [place]: 3.79 MR VTI: 1.96 Aortic Valve AoV Pk Manav: 1.44 AoV Mn Manav: 0.98 AoV VTI: 0.34 AoV Pk Grad: 8.00 Aov Mn Grad: 4.00 JEROME Cont.VTI: 2.13 LVOT LVOT Pk Manav: 0.94 LVOT Mn Manav: 0.67 LVOT VTI: 0.21 LVOT Pk Grad: 4.00 LVOT Mn Grad: 2.00 LVOT Diam: 2.10 LVOT Area: 3.46 Diastolic Function MV Pk E: 0.76 MV Pk A: 0.51 E/A: 1.50 E'Medial: 8.27 E/E' Med: 9.20 E' Laterial: 12.90 E/E' Lat: 5.90 Right Ventricle TAPSE (mm): 21.40 TVS' Manav: 10.90 Tricuspid Valve TR Pk Manav: 2.31 TR Pk Grad: 21.00 RA Press: 3.00 RVSP: 24.00 Great Vessels Aorta Sinus of Valsalva: 3.60 2.0-3.5 cm Ao Asc: 3.40 2.1-3.4 cm Ao Arch: 3.20 Pulmonary Veins Pulm Vein S/D 1.20 Pulmonary Valve PV Pk Manav: 0.94 Peak PV Grad: 4.00 Updated in Other Vendor System with Status of Final Bill Sánchez MD electronically signed on 03/11/2022 3:13:40 PM with status of Final
== END ==
LOC: HO.CARD 13:38
PROVIDERS: PCP Internal Medicine; Visit Provider Internal Medicine Cardiovascular Disease
DX: I48.0 Paroxysmal atrial fibrillation (principal)
CPT/HCPCS: 93242; 93306; Q9957

== ENCOUNTER 2022-05-19 13:23 | Outpatient (REF) | payer OTHER, SELFPAY ==
--- NOTE | ~2022-05-19 | US_ITS ---
EXAMINATION: US PELVIS CLINICAL INFORMATION: Abnormal uterine and vaginal bleeding COMPARISON: None TECHNIQUE: Ultrasound of the pelvis is performed using both transabdominal and transvaginal transducers along with Doppler. Transvaginal imaging is performed due to inadequate visualization transabdominally. FINDINGS: Uterus: The uterus is anteverted and measures 6.6 x 3.1 x 5.2 cm. The eighth heterogeneous echotexture with solid and cystic components within the endometrium with flow. 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 No fibroids are seen. The double wall endometrial thickness is 10 mm. Adnexa: The ovaries were not identified with transabdominal or endovaginal technique although there are no cystic lesions in the adnexa noted. There is no ascites. US/US pelvic and transvaginal IMPRESSION: Abnormal endometrium. Direct visualization with tissue sampling is advised.
== END 2022-05-19 13:24 | disposition home or self-care (01) ==
LOC: HO.US 13:23
PROVIDERS: PCP Internal Medicine; Visit Provider Internal Medicine
DX: N93.9 Abnormal uterine and vaginal bleeding, unspecified (principal)
CPT/HCPCS: 76830; 76856

== ENCOUNTER → 2022-07-13 13:49 | Outpatient (BNVA) | payer OTHER, SELFPAY | PROVIDERS: PCP Internal Medicine; Referring Provider Internal Medicine; Visit Provider Internal Medicine | DX: I48.0 Paroxysmal atrial fibrillation (principal); E66.01 Morbid (severe) obesity due to excess calories; Z79.899 Other long term (current) drug therapy | CPT/HCPCS: 93005 ==

== ENCOUNTER 2022-07-19 11:24 | Outpatient (REF) | payer OTHER, SELFPAY ==
[2022-07-23 05:13] LABS: HPV mRNA E6/E7 rflx Not Detected (Not Detected)
== END 2022-07-19 11:25 | disposition home or self-care (01) ==
LOC: HO.LNP 11:24
PROVIDERS: PCP Internal Medicine; Visit Provider Obstetrics & Gynecology
DX: Z12.4 Encounter for screening for malignant neoplasm of cervix (principal); Z11.51 Encounter for screening for human papillomavirus (HPV); N95.0 Postmenopausal bleeding
CPT/HCPCS: 58100; 87624; 88142; 88305

== ENCOUNTER → 2022-08-25 08:14 | Outpatient (BNVA) | payer OTHER, SELFPAY | PROVIDERS: Visit Provider Obstetrics & Gynecology | DX: Z13.89 Encounter for screening for other disorder (principal) ==

== ENCOUNTER 2023-03-16 11:04 | Outpatient (AMB) | payer SELFPAY ==
[2023-03-16 11:11] VITALS: BP 120/82; PULSE 68; BMI 40.4
--- NOTE | 2023-03-16 11:11 | A.OFFVIS_ITS ---
Intake Vital Signs 03/16/23 11:11 Height 5 ft 9 in Weight 273 lb 5.971 oz BMI 40.4 BP 120/82 Blood Pressure Location Lt brachial Position Sitting Pulse 68 Intake Visit Reasons: 6 mth f/up Intake Note: 6 month follow up Systems Program Manager Required: No Accompanied by: Self / Same As Patient Allergies Penicillins [PENICILLINS] Allergy (Intermediate, Verified 03/16/23 11:12) TONGUE SWELLING,SKIN PEELING ON FINGERS Medication List - Last Reconciled 03/16/23 by Robert Hernandez MD apixaban (Eliquis) 5 mg PO BID flecainide 100 mg (2 x 50 mg) PO BID 90 days metoprolol succinate ER 75 mg (3 x 25 mg) PO DAILY 90 days HPI HPI Comments History of Present Illness Details Vida returns for follow-up. To recall, she had atrial fibrillation ablation in 2011. Was taking amiodarone at that time. In 2014, she had ERVIN/cardioversion and was on Multaq for a while till 2015. Then went back into atrial fibrillation. Then again performed cardioversion. Then we kept on flecainide and beta-blockers and she was doing well. Then had weight loss surgery and lost more than 100 lb. Then we stopped the flecainide as well as anticoagulation. Maintained on beta-blockers only. However, she gained a lot of weight back. In 2021, had another episode of atrial fibrillation with rapid rate. Then underwent ERVIN/cardioversion. Then resumed on beta-blockers and flecainide. Also on anticoagulation. In the last few months, she is generally doing good. No further atrial fibrillation. Weight is a bit higher than before. [facility] Medical History A-fib COVID-19 vaccine series completed History of cardioversion History of positive PPD Osteoarthritis Rosacea Surgical History History of total left hip replacement History of cardiac radiofrequency ablation Hx of section Hx of colonoscopy Hx of gastric bypass History of total left knee replacement History of total right knee replacement Family History Father No problems noted. Mother No problems noted. 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 Reproductive History Menstrual Age of Menarche: 15 Review of Systems Const Denies weakness ENT Denies dizziness Card Denies chest pain, Denies chest pain with activity, Denies syncope, Denies rapid heart rate, Denies pedal edema, Denies edema, Denies leg edema, Denies li ghtheadedness, Denies palpitations, Denies dyspnea, Denies dyspnea on exertion and Denies orthopnea Resp Denies cough, Denies dyspnea and Denies dyspnea on exertion GI Denies hematochezia and Denies change in stool character Musc Denies abnormal gait, Denies muscle cramps, Denies muscle weakness, Denies numbness, Denies radiating pain into limb and Denies tingling Neuro Denies abnormal gait, Denies dizziness, Denies syncope, Denies numbness, Denies tingling and Denies weakness Endo Denies palpitations Physical Exam Vital Signs: Last Vital Signs Pulse 68 03/16/23 11:11 BP 120/82 03/16/23 11:11 BMI result Body Mass Index 40.4 Const General: comfortable and no acute distress Orientation/consciousness: patient oriented x3 HEENT Other: Unremarkable Head: Yes normal to inspection Neck Neck: Yes normal visual inspection Chest Chest palpation & inspection: normal inspection of the chest Resp Auscultation: clear to auscultation bilaterally Cardio Palpation: normal PMI Heart sounds: S1 normal heart sound present, S2 normal heart sound present, no gallops, no murmurs and no rubs GI Palpation (GI): Soft to palpation Back/Spine/Pelvis Other: unremarkable Skin General skin exam: no rashes or lesions noted Neuro General: patient oriented x3 Extrem General: Yes normal to inspection Psych Mental Status: mental status grossly normal Office Procedures EKG Details: EKG with sinus rhythm at 68/Min; no significant ST-T changes and otherwise [place]remarkable[place]. [id number], Complete Assessment & Plan Assessment & Plan (1) PAF (paroxysmal atrial fibrillation): Code(s): I48.0 - Paroxysmal atrial fibrillation (2) Encounter for monitoring anti-arrhythmic therapy: Code(s): Z51.81 - Encounter for therapeutic drug level monitoring; Z79.899 - Other intermission coordinator (current) drug therapy (3) Morbid obesity: Code(s): E66.01 - Morbid (severe) obesity due to excess calories (4) CIPRIANO (obstructive sleep apnea): Code(s): G47.33 - Obstructive sleep apnea (adult) (pediatric) Plan s/p atrial fibrillation ablation 2011. ERVIN/cardioversion 2014. Cardioversion 2015. ERVIN cardioversion January/2022. As she has gained more weight than before, high likelihood of recurrence. Hence continue flecainide/metoprolol. Continue anticoagulation. We discussed about another ablation but she would rather not do that. Main advise is still lose a lot of weight. That will hopefully keep the atrial fibrillation away. Cardiac testing- [id number] 60-65%; mild mitral regurgitation. Myocardial perfusion imaging -2021-likely normal perfusion. [id number] rhythm with an average of 64/Min. Rare PACs. With regard to sleep apnea, referred to pulmonary medicine. Orders: Orders Liver Panel Today I48.0 - Paroxysmal atrial fibrillation Complete Blood Count no Diff Today I48.0 - Paroxysmal atrial fibrillation Basic Metabolic Panel Today I48.0 - Paroxysmal atrial fibrillation Referrals Pulmonary Medicine Referral G47.33 - Obstructive sleep apnea (adult) (pediatric) Coding Level of Care Code Est Pt Level 4 (87692) Diagnoses PAF (paroxysmal atrial fibrillation) I48.0 Encounter for monitoring anti-arrhythmic therapy Z51.81; Z79.899 Morbid obesity E66.01 CIPRIANO (obstructive sleep apnea) G47.33 CPT Codes EKG - CPT: 32038-[id number], Complete ([id number])
== END 2023-03-16 11:33 | disposition home or self-care (01) ==
PROVIDERS: Visit Provider Internal Medicine
DX: I48.0 Paroxysmal atrial fibrillation (principal); Z51.81 Encounter for therapeutic drug level monitoring; Z79.899 Other long term (current) drug therapy; E66.01 Morbid (severe) obesity due to excess calories; G47.33 Obstructive sleep apnea (adult) (pediatric)
CPT/HCPCS: 93010; 99214

== ENCOUNTER → 2023-03-16 11:04 | Outpatient (BNVA) | payer SELFPAY | PROVIDERS: Visit Provider Internal Medicine | DX: I48.0 Paroxysmal atrial fibrillation (principal) | CPT/HCPCS: 93005 ==

== ENCOUNTER 2023-07-06 11:09 | Outpatient (AMB) | payer MEDICARE, SELFPAY ==
[2023-07-06 11:11] VITALS: BP 118/78; PULSE 80; O2SAT 96; BMI 41.0
--- NOTE | 2023-07-06 11:11 | MHC.OFFVIS ---
Intake Vital Signs 07/06/23 11:11 Height 5 ft 9 in Weight 277 lb 12.519 oz BMI 41.0 BP 118/78 Blood Pressure Location Rt brachial Position Sitting Pulse 80 Pulse Source Doppler Pulse Oximetry (%) 96 Oxygen Delivery Method Room Air Intake Visit Reasons: Obstructive sleep apnea Allergies Penicillins [PENICILLINS] Allergy (Intermediate, Verified 07/06/23 11:13) TONGUE SWELLING,SKIN PEELING ON FINGERS HPI Obstructive sleep apnea HPI Details 67-year-old lady, former minimal smoker greater than 20 years prior, with underlying history of mild obstructive sleep apnea referred for management of her obstructive sleep apnea. Patient is interested in starting CPAP therapy. She had CPAP therapy many years prior, but then has lost some weight with resolution of her CIPRIANO symptoms. Recently patient has regain her weight in her sleep study from 2021 shows respiratory event index of 12. Patient also has recent history of COVID-19 after which she has recovered almost to baseline, but she does endorse some wheezing. [facility] Medical History A-fib COVID-19 vaccine series completed History of cardioversion History of positive PPD Osteoarthritis Rosacea Surgical History History of total left hip replacement History of cardiac radiofrequency ablation Hx of section Hx of colonoscopy Hx of gastric bypass History of total left knee replacement History of total right knee replacement Family History Father No problems noted. Mother No problems noted. 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 Reproductive History Menstrual Age of Menarche: 15 Review of Systems Const Reports daytime sleepiness, Denies excessive sweating, Denies fatigue, Denies fever(s), Reports lethargy, Reports malaise, Denies night sweats, Denies snoring and Denies weight loss Eyes Denies blurry vision and Denies itchy eyes ENT Denies nasal congestion, Denies post nasal drip, Denies sinus pain, Denies sinus pressure and Denies other ( Thrush) Card Denies chest pain, Denies pedal edema, Denies dyspnea, Denies orthopnea and Denies paroxysmal nocturnal dyspnea Resp Denies cough, Denies hemoptysis, Denies excessive phlegm production, Denies dyspnea, Denies snoring and Reports wheezing GI Denies abdominal pain and Denies heartburn Musc Denies myalgias, Denies arthralgias and Denies joint swelling Skin/Breast Denies rash Neuro Denies memory loss and Denies seizure-like activity Psych Denies abnormal sleep pattern, Denies anxiety and Denies memory loss Endo Denies excessive sweating, Denies fatigue and Denies heat intolerance Bob/Lymph Denies easy bruising Aller/Immun Denies itchy eyes, Denies seasonal rhinorrhea and Reports wheezing Physical Exam Vital Signs: Last Vital Signs Pulse 80 07/06/23 11:11 BP 118/78 07/06/23 11:11 Pulse Ox 96 07/06/23 11:11 Oxygen Delivery Method Room Air 07/06/23 11:11 BMI result Body Mass Index 41.0 Const General: no acute distress and alert Nutritional Appearance: not obese Orientation/consciousness: Other orientation findings ( oriented) HEENT Head: Yes atraumatic Eyes General: appearance normal, both eyes and all related structures Sclerae: sclerae normal EOM: EOMs intact bilaterally Neck Neck: Yes supple Lymphatic: no lymphadenopathy noted Resp Effort & Inspection: normal respiratory effort and no use of accessory muscles Auscultation: clear to auscultation bilaterally Cardio Rate: regular rate Rhythm: regular rhythm Heart sounds: no gallops, no murmurs and no rubs Skin General skin exam: other ( warm) Extrem General: No clubbing, No cyanosis and No edema Assessment & Plan Assessment & Plan (1) CIPRIANO (obstructive sleep apnea): Code(s): G47.33 - Obstructive sleep apnea (adult) (pediatric) Plan: Results of sleep study reviewed, underlying mild obstructive sleep apnea. Will start on APAP of 6-16 cm of water. (2) Morbid obesity: Code(s): E66.01 - Morbid (severe) obesity due to excess calories Plan: (3) History of COVID-19: Code(s): Z86.16 - Personal history of COVID-19 Plan: Has a recovered essentially to baseline. Does complain of mild wheezing. Will monitor clinically at this time. Coding Level of Care Code New Pt Level 4 (23943) Diagnoses CIPRIANO (obstructive sleep apnea) G47.33 Morbid obesity E66.01 History of COVID-19 Z86.16
== END 2023-07-06 11:25 | disposition home or self-care (01) ==
PROVIDERS: PCP Internal Medicine; Visit Provider Internal Medicine Pulmonary Disease
DX: G47.33 Obstructive sleep apnea (adult) (pediatric) (principal); E66.01 Morbid (severe) obesity due to excess calories; Z86.16 Personal history of COVID-19
CPT/HCPCS: 99204

== ENCOUNTER → 2023-07-06 11:09 | Outpatient (BNVA) | payer MEDICARE, SELFPAY | PROVIDERS: PCP Internal Medicine; Visit Provider Internal Medicine Pulmonary Disease | DX: G47.33 Obstructive sleep apnea (adult) (pediatric) (principal); E66.01 Morbid (severe) obesity due to excess calories; Z86.16 Personal history of COVID-19; Z68.41 Body mass index [BMI] 40.0-44.9, adult | CPT/HCPCS: 99202 ==

== ENCOUNTER 2023-10-05 09:18 | Outpatient (AMB) | payer MEDICARE, SELFPAY ==
[2023-10-05 09:26] VITALS: BP 104/70; BMI 41.8
--- NOTE | 2023-10-05 09:26 | MHC.OFFVIS ---
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 Complaining of 3 episodes of vaginal spotting over the last few months Last Pap/HPV was negative in 07/19 Last Mammogram was in 2016 No previous screening Colonoscopy No previous DEXA scan [facility] Medical History Rosacea COVID-19 vaccine series completed Osteoarthritis History of positive PPD History of cardioversion A-fib Surgical History History of total left hip replacement History of cardiac radiofrequency ablation Hx of section Hx of colonoscopy Hx of gastric bypass History of total left knee replacement History of total right knee replacement Family History Father No problems noted. Mother No problems noted. 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 Reproductive History Menstrual Age of Menarche: 15 control method: none Total pregnancies: 4 Full term: 2 Number of Living Children: 2 Ab induced: 2 Date of last pap smear: 07/20/22 (negative) Date of Mammogram: 04/26/17 Date of last Bone Density Screenin04/26/17 Review of Systems Const All systems reviewed & are unremarkable except as noted in HPI and below Card Reports as per HPI Resp Reports as per HPI GI Reports as per HPI and Reports no additional complaints Reports as per HPI Physical Exam Vital Signs: Last Vital Signs BP 104/70 10/05/23 09:26 BMI result Body Mass Index 41.8 Const General: cooperative, healthy appearing and comfortable Chest Chest palpation & inspection: normal inspection of the chest and normal palpation of entire chest wall Breast/axilla inspection: normal inspection of the breasts and normal inspection of the axillae Breast/axilla palpation: normal palpation of the breasts, normal palpation of the axillae and no axillary lymphadenopathy Resp Effort & Inspection: normal respiratory effort Auscultation: clear to auscultation bilaterally Percussion: percussion normal Cardio Palpation: normal PMI Rate: regular rate Rhythm: regular rhythm Heart sounds: no murmurs and no rubs Peripheral pulses: Peripheral pulses 2+ throughout GI Inspection: Yes normal to inspection Palpation (GI): Soft to palpation, nontender, no guarding, not rigid and No hepatosplenomegaly present Percussion: Yes normal to percussion Auscultation: normal bowel sounds Rectal Exam - Female: deferred General: Yes bladder normal to palpation External Female Exam: No lesion Speculum Exam - Vagina: normal appearance of the vagina, normal palpation, normal vaginal discharge and not erythematous Speculum Exam - Cervix: normal appearance of the cervix and normal palpation Bimanual exam- vagina & uterus: normal bimanual exam, normal palpation, uterine size normal, bladder normal to palpation, consistency normal and normal palpation Bimanual Exam- Adnexa, other: normal adnexae, no masses and no tenderness Assessment & Plan Assessment & Plan (1) Well woman exam: Code(s): Z01.419 - Encounter for gynecological examination (general) (routine) without abnormal findings Plan: Co testing not indicated since the patient 's age is above 65 with no history of abnormal Pap smears last 25 years. Counseled the patient about the recommended dietary allowance of 1200 mg of Calcium & 800 IU of vitamin D. Mammogram ordered. Referred the patient to GI for screening colonoscopy done. Will order DEXA scan . The patient was instructed to perform monthly self-breast exams and to schedule a 2 week DEXA scan follow-up appointment and an annual exam in a year; All questions answered and the patient verbalized understanding. (2) Postmenopausal bleeding: Code(s): N95.0 - Postmenopausal bleeding Plan: Discussed with the patient the differential diagnosis of post menopausal bleeding with normal pelvic exam including but not limited to, endometrial hyperplasia, cancer, polyps and other causes; recommended ultrasound to measure the endometrial stripe; discussed with the patient that if the endometrial thickness is 4 mm or less the negative predictive value of endometrial pathology is 99%, otherwise If endometrial thickness is more than 4 mm will proceed with endometrial sampling versus hysteroscopy D&C polypectomy depending on the ultrasound findings. Instructed the patient to schedule an ultrasound follow-up appointment in 2 weeks. All questions answered, the patient verbalized understanding and agreed with the plan. Orders: Orders XR DEXA axial skeleton Today Z78.0 - Asymptomatic menopausal state MM tomosynthesis screening BI Today Z12.31 - Encounter for screening mammogram for malignant neoplasm of breast US pelvic and transvaginal Today N95.0 - Postmenopausal bleeding Referrals Gastroenterology Referral Z12.11 - Encounter for screening for malignant neoplasm of colon Coding Level of Care Code Est Pt Prev Care >65y(71830) Diagnoses Well woman exam Z01.419 Postmenopausal bleeding N95.0
== END 2023-10-05 09:48 | disposition home or self-care (01) ==
PROVIDERS: PCP Internal Medicine; Visit Provider Obstetrics & Gynecology
DX: Z01.419 Encounter for gynecological examination (general) (routine) without abnormal findings (principal); N95.0 Postmenopausal bleeding
CPT/HCPCS: 99213; G0101

== ENCOUNTER → 2023-10-05 09:18 | Outpatient (BNVA) | payer MEDICARE, SELFPAY | PROVIDERS: PCP Internal Medicine; Visit Provider Obstetrics & Gynecology | DX: Z01.419 Encounter for gynecological examination (general) (routine) without abnormal findings (principal); N95.0 Postmenopausal bleeding | CPT/HCPCS: 99212; G0101 ==

== ENCOUNTER 2023-10-18 12:58 | Outpatient (REF) | payer MEDICARE, SELFPAY ==
--- NOTE | ~2023-10-18 | US_ITS ---
EXAMINATION: US PELVIS CLINICAL INFORMATION: Postmenopausal bleeding. COMPARISON: Ultrasound pelvis 05/19/2022. TECHNIQUE: Ultrasound of the pelvis is performed using both transabdominal and transvaginal transducers along with Doppler. Transvaginal imaging is performed due to inadequate visualization transabdominally. FINDINGS: Uterus: The uterus is anteverted and measures 7.1 x 2.8 x 4.9 cm. The double wall endometrial thickness is thickened at 10 mm. Cystic areas are seen within the endometrial canal. Previous appearances were similar. The uterus is smooth in contour and has normal myometrial echogenicity. No visible fibroid. Adnexa: Neither ovary was seen. No free fluid detected in the cul-de-sac. US/US pelvic and transvaginal IMPRESSION: Thickened endometrium with cystic areas. Further evaluation is recommended with tissue sampling if this has not already occurred based upon the recommendation of the 05/19/2022 study.
== END 2023-10-18 12:59 | disposition home or self-care (01) ==
LOC: HO.US 12:58
PROVIDERS: PCP Internal Medicine; Visit Provider Obstetrics & Gynecology
DX: N95.0 Postmenopausal bleeding (principal)
CPT/HCPCS: 76830; 76856

== ENCOUNTER 2023-10-26 12:51 | Outpatient (REF) | payer MEDICARE, SELFPAY ==
--- NOTE | ~2023-10-26 | MM_ITS ---
EXAMINATION: BONE DENSITOMETRY CLINICAL INDICATION: Menopause. COMPARISON: Baseline BD dated 04/26/2017. TECHNIQUE: Using a Cine[employer] DXA System (software version: 13.1) manufactured by [employer], dual-energy x-ray absorptiometry was performed of the lumbar spine and left forearm radius 33%. Patient with bilateral hip replacements. The images are of good technical quality. Summary results are attached. FINDINGS: AP SPINE L1-L4: Current: BMD 1.279 g/cm2, Z-score 1.3, T-score 0.8, normal, 16.3% increase from baseline (<5% change is not significant). Baseline: BMD 1.100 g/cm2. LEFT FOREARM RADIUS 33%: BMD 0.892 g/cm2, Z-score 1.6, T-score 0.2, normal. IDENTIFIED RISK FACTORS: Menopause. HISTORY OF FRACTURE: None listed. MEDICATIONS: Multivitamin. MM/XR DEXA axial skeleton IMPRESSION: 1. DIAGNOSIS: Normal bone density based on the lowest T-score value of 0.2 in the forearm radius 33% applying World Health Organization criteria. 2. 10-YEAR FRACTURE RISK PREDICTION, FRAX: Not performed in this patient without a femoral neck BMD measurement. 3. Treatment Recommendations: NOF guidelines recommend consideration for treatment in postmenopausal women and men age 50 and older presenting with the following: -A hip or vertebral (clinical or morphometric) fracture. -T-score less than or equal to -2.5 at the femoral neck or spine after appropriate evaluation to exclude secondary causes. -Low bone mass at the hip or spine and a 10-year fracture probability by FRAX of greater than or equal to 3% for hip fracture or greater than or equal to 20% for major osteoporotic fracture based on the [place] adapted WHO algorithm. 4. Other Recommendations: All treatment decisions require clinical judgment and consideration of individual patient factors, including patient preferences, comorbidities, previous drug use, risk factors not captured in the FRAX model (e.g. frailty, falls, vitamin D deficiency, increased bone turnover, interval significant decline in bone density) and possible under or overestimation of fracture risk by FRAX. FUTURE SCAN RECOMMENDATION: People with diagnosed cases of osteoporosis or at high risk for fracture should have regular bone mineral density tests. For patients eligible for Medicare, routine testing is allowed once every 2 years. The testing frequency can be increased to one year for patients who have rapidly progressing disease, those who are receiving or discontinuing medical therapy to restore bone mass, or have additional risk factors.
--- NOTE | ~2023-10-26 | MM_ITS ---
EXAMINATION: MM SCREENING DIGITAL BREAST TOMOSYNTHESIS, BILATERAL CLINICAL INFORMATION: Screening. Asymptomatic. COMPARISON: Mammography: 04/26/2017, 07/14/2001 (scanned from film) TECHNIQUE: Digital breast tomosynthesis is performed in both the craniocaudal and mediolateral oblique views along with computer-aided detection (CAD). Synthesized 2D images are generated from the tomosynthesis. FINDINGS: The breasts are almost entirely fatty (ACR BI-RADS breast composition Category a). There are no suspicious masses, suspicious grouped calcifications, or areas of architectural distortion in either breast. A few tiny subcentimeter round nodular foci in the anterior bilateral breasts are unchanged from 2017 in size and location. These are benign. The parenchymal pattern is stable from prior exams. No skin or axillary abnormalities. MM/MM tomosynthesis screening BI IMPRESSION: No mammographic evidence of malignancy. ASSESSMENT: BI-RADS BI-RADS 2 - Benign Findings RECOMMENDATION: Routine annual mammography screening. 1 year F/U This examination should not preclude the clinical evaluation of a suspicious palpable abnormality. This patient's information was entered into a reminder system with a target due date for their next mammogram.
== END 2023-10-26 12:52 | disposition home or self-care (01) ==
LOC: HO.MAMMO 12:51
PROVIDERS: PCP Internal Medicine; Visit Provider Obstetrics & Gynecology
DX: Z12.31 Encounter for screening mammogram for malignant neoplasm of breast (principal); Z13.820 Encounter for screening for osteoporosis; Z78.0 Asymptomatic menopausal state; I48.0 Paroxysmal atrial fibrillation; E66.01 Morbid (severe) obesity due to excess calories
CPT/HCPCS: 77063; 77067; 77080; 93005; 99212

== ENCOUNTER → 2023-10-26 13:30 | Outpatient (BNV) | payer MEDICARE, SELFPAY | PROVIDERS: PCP Internal Medicine; Visit Provider Radiology Diagnostic Radiology | DX: Z12.31 Encounter for screening mammogram for malignant neoplasm of breast (principal) | CPT/HCPCS: 77063; 77067 ==

== ENCOUNTER 2023-10-26 14:42 | Outpatient (AMB) | payer MEDICARE, SELFPAY ==
[2023-10-26 14:58] VITALS: BP 120/74; PULSE 62; BMI 41.3
--- NOTE | 2023-10-26 14:58 | MHC.OFFVIS ---
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 To recall, she had atrial fibrillation ablation in 2011. Was taking amiodarone at that time. In 2014, she had ERVIN/cardioversion and was on Multaq for a while till 2015. Then went back into atrial fibrillation. Then again performed cardioversion. Then we kept on flecainide and beta-blockers and she was doing well. Then had weight loss surgery and lost more than 100 lb. Then we stopped the flecainide as well as anticoagulation. Maintained on beta-blockers only. However, she gained a lot of weight back. In 2021, had another episode of atrial fibrillation with rapid rate. Then underwent ERVIN/cardioversion. Then resumed on beta-blockers and flecainide. Also on anticoagulation. Since last seen, no new complaints. No recurrence of atrial fibrillation. Doing good. Weight is still high. [facility] Medical History Rosacea COVID-19 vaccine series completed Osteoarthritis History of positive PPD History of cardioversion A-fib Surgical History History of total left hip replacement History of cardiac radiofrequency ablation Hx of section Hx of colonoscopy Hx of gastric bypass History of total left knee replacement History of total right knee replacement Family History Father No problems noted. Mother No problems noted. 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 Reproductive History Menstrual Age of Menarche: 15 Review of Systems Const Denies chills, Denies fatigue, Denies fever(s), Denies frequent falls, Denies weakness, Denies weight gain and Denies weight loss ENT Denies dizziness Card Denies chest pain, Denies leg edema, Denies lightheadedness, Denies palpitations, Denies dyspnea, Denies dyspnea on exertion, Denies orthopnea and Denies other (loss of consciousness) Resp Denies cough, Denies dyspnea and Denies dyspnea on exertion GI Denies hematochezia and Denies change in stool character Musc Denies abnormal gait, Denies muscle weakness, Denies numbness, Denies radiating pain into limb and Denies tingling Neuro Denies abnormal gait, Denies dizziness, Denies frequent falls, Denies numbness, Denies tingling and Denies weakness Endo Denies fatigue and Denies palpitations Physical Exam Vital Signs: Last Vital Signs Pulse 62 10/26/23 14:58 BP 120/74 10/26/23 14:58 BMI result Body Mass Index 41.3 Const General: comfortable and no acute distress Orientation/consciousness: patient oriented x3 HEENT Other: Unremarkable Head: Yes normal to inspection Neck Neck: Yes normal visual inspection Chest Chest palpation & inspection: normal inspection of the chest Resp Auscultation: clear to auscultation bilaterally Cardio Palpation: normal PMI Heart sounds: S1 normal heart sound present, S2 normal heart sound present, no gallops, no murmurs and no rubs GI Palpation (GI): Soft to palpation Back/Spine/Pelvis Other: unremarkable Skin General skin exam: no rashes or lesions noted Neuro General: patient oriented x3 Extrem General: Yes normal to inspection Psych Mental Status: mental status grossly normal Office Procedures EKG Details: EKG with sinus rhythm at 62/Min; nonspecific ST-T changes; [place]. [id number], Complete Assessment & Plan Assessment & Plan (1) PAF (paroxysmal atrial fibrillation): Code(s): I48.0 - Paroxysmal atrial fibrillation Category: Medical (2) Encounter for monitoring anti-arrhythmic therapy: Code(s): Z51.81 - Encounter for therapeutic drug level monitoring; Z79.899 - Other moth exterminator (current) drug therapy Category: Medical (3) Morbid obesity: Code(s): E66.01 - Morbid (severe) obesity due to excess calories Category: Medical Plan s/p atrial fibrillation ablation 2011. ERVIN/cardioversion 2014. Cardioversion 2015. ERVIN cardioversion January/2022. Because of significant weight gain, high likelihood of recurrence. Hence continue current medications including metoprolol/flecainide/Eliquis. If it still keeps recurring, then consider ablation. Advised her to go back to bariatric due to the recent weight gain. She agrees. She understands the fact that if she loses weight, atrial fibrillation management would be easier. Cardiac testing- [id number] 60-65%; mild mitral regurgitation. Myocardial perfusion imaging -2021-likely normal perfusion. [id number] rhythm with an average of 64/Min. Rare PACs. Follow-up in 6 months. She will call us with concerns. Coding Level of Care Code Est Pt Level 4 (36943) Diagnoses PAF (paroxysmal atrial fibrillation) I48.0 Encounter for monitoring anti-arrhythmic therapy Z51.81; Z79.899 Morbid obesity E66.01 CPT Codes EKG - CPT: 44460-[id number], Complete ([id number])
== END 2023-10-26 15:27 | disposition home or self-care (01) ==
PROVIDERS: PCP Internal Medicine; Visit Provider Internal Medicine
DX: I48.0 Paroxysmal atrial fibrillation (principal); Z51.81 Encounter for therapeutic drug level monitoring; Z79.899 Other long term (current) drug therapy; E66.01 Morbid (severe) obesity due to excess calories
CPT/HCPCS: 93010; 99214

== ENCOUNTER 2023-11-01 07:37 | Outpatient (AMB) | payer MEDICARE, SELFPAY ==
[2023-11-01 07:39] VITALS: BP 120/70; BMI 41.3
--- NOTE | 2023-11-01 07:39 | MHC.OFFVIS ---
Vital Signs 11/01/23 07:39 Height 5 ft 9 in Weight 279 lb 15.793 oz BMI 41.3 BP 120/70 Intake Visit Reasons: Ultra sound follow up/? emb Ship Loader Required: No Information Interpreted: non-clinical & clinical Landscape Photographer: Landscape Photographer Present (Nanette LOWE) Accompanied by: Self / Same As Patient Allergies Penicillins [PENICILLINS] Allergy (Intermediate, Verified 11/01/23 07:47) TONGUE SWELLING,SKIN PEELING ON FINGERS Post menopausal: Yes HPI Comments Details: Presenting for pelvic ultrasound and DEXA scan follow-up Pelvic ultrasound done on 10/18/23 showed the following: Uterus: The uterus is anteverted and measures 7.1 x 2.8 x 4.9 cm. The double wall endometrial thickness is thickened at 10 mm. Cystic areas are seen within the endometrial canal. Previous appearances were similar. The uterus is smooth in contour and has normal myometrial echogenicity. No visible fibroid. Adnexa: Neither ovary was seen. No free fluid detected in the cul-de-sac. DEXA scan showed a T-score of 0.8 at the spine level at the forearm 0.2, no FRAX risk calculated, bone mineral density has increased by 16.3% from baseline at the spine level. [facility] Medical History Rosacea COVID-19 vaccine series completed Osteoarthritis History of positive PPD History of cardioversion A-fib Surgical History History of total left hip replacement History of cardiac radiofrequency ablation Hx of section Hx of colonoscopy Hx of gastric bypass History of total left knee replacement History of total right knee replacement Family History Father No problems noted. Mother No problems noted. 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 Reproductive History Menstrual Age of Menarche: 15 Review of Systems Const All systems reviewed & are unremarkable except as noted in HPI and below Reports as per HPI and Reports no additional complaints GI Reports no additional complaints Reports no additional complaints Physical Exam Vital Signs: BMI result Body Mass Index 41.3 Office Procedures Endometrial Biopsy Details: The patient was counseled regarding the indication and benefits of endometrial sampling to rule out endometrial pathology including not limited to endometrial hyperplasia or endometrial cancer and others; The alternatives (Either do nothing vs. hysteroscopy D&C) & the risks were discussed with the patient including but not limited: pain, uterine perforation, bleeding, infection, possible injury to bladder, bowel, ureter, possible need for blood transfusion with all its possible risks. The patient verbalized understanding all questions answered and signed consent. The patient was placed into the dorsal lithotomy position; a speculum was inserted in the vagina. Using aseptic technique for the procedure, the cervix was cleansed with Betadine. The anterior lip of the cervix was grasped with a single tooth tenaculum. The uterus was sounded to 7 cm with a 4 mm Pipelle was used. Tissues samples were obtained and placed in formalin, in a patient labeled container and sent to the pathology department. At the end of the procedure, there was minimal bleeding noted The patient tolerated the procedure well and was discharged in good condition with the following instructions: Nothing in the vagina until the bleeding stops. No sex until the bleeding stops, to call if any of the following occurs: fever (>100.4), flu-like symptoms, abdominal pain, heavy bleeding, four smelling vaginal discharge. The patient was instructed to schedule a Follow up appointment in 2 weeks to discuss pathology results of the biopsy and treatment options. This note was generated with a voice recognition program. Some errors may have been overlooked during the review of this note. Sometimes these errors may affect the content or meaning of a given sentence. [id number] Biopsy Assessment & Plan Assessment & Plan (1) Postmenopausal bleeding: Comment: Thickened /abnormal endometrium Code(s): N95.0 - Postmenopausal bleeding Category: Medical Plan: Discussed with the patient the DEXA results which showed no evidence of osteoporosis. Discussed with the patient all the options for osteoporosis prevention including lifestyle modifications including Ca+D supplements 1200 mg po qd/800 MIU, Weight bearing exercises and proteine supplements. The patient verbalized understanding and agreed plan will repeat DEXA in 2 years. Discussed with the patient the pelvic ultrasound findings, the endometrial stripe thickenss measured by ultrasound was more than 4mm and showing cystic change. The negative predictive value, positive predictive value, Sensitivity, specificity of using ultrasound measurement of endometrial stripe to detecting endometrial pathology including hyperplasia , polyp or cancer were discussed with the patient. Recommended to the patient that the next step is an endometrial sampling via hysteroscopy D&C possible polypectomy versus endometrial biopsy to r/o endometrial pathology including hyperplasia or cancer. All the pros and cons risks and benefits of each approach were discussed with the patient, endometrial biopsy being less invasive, office procedure with less sensitivity and inability diagnose a polyp and removal versus hysteroscopy done under anesthesia more invasive more sensitive to endometrial cancer and possibility of diagnosing and endometrial polyp with the possibility of polypectomy. All questions were answered pt verbalized understanding and decided to proceed with endometrial biopsy. EMB done, see procedure note Orders: Orders AMB Endometrial Biopsy Today N95.0 - Postmenopausal bleeding Coding Level of Care Code Est Pt Level 3 (60534) Procedure Only Diagnoses Postmenopausal bleeding N95.0 CPT Codes Endometrial Biopsy - CPT: 11480-Jtiykpmihgo Biopsy ([id number])
== END 2023-11-01 08:28 | disposition home or self-care (01) ==
LOC: HO.HWS 07:37
PROVIDERS: PCP Internal Medicine; Visit Provider Obstetrics & Gynecology
DX: N95.0 Postmenopausal bleeding (principal)
CPT/HCPCS: 58100; 99213

== ENCOUNTER 2023-11-01 07:37 | Outpatient (REF) | payer MEDICARE, SELFPAY | END 2023-11-01 07:38 | disposition home or self-care (01) | LOC: HO.LNP 07:37 | PROVIDERS: PCP Internal Medicine; Visit Provider Obstetrics & Gynecology | DX: N95.0 Postmenopausal bleeding (principal) | CPT/HCPCS: 58100; 88305; 99212 ==

== ENCOUNTER → 2023-11-03 09:50 | Outpatient (REF) | payer MEDICARE, SELFPAY | LOC: HO.SL 09:50 | PROVIDERS: PCP Internal Medicine; Visit Provider Internal Medicine Pulmonary Disease | DX: G47.33 Obstructive sleep apnea (adult) (pediatric) (principal); R06.9 Unspecified abnormalities of breathing | CPT/HCPCS: 95806 ==

== ENCOUNTER → 2023-11-03 09:58 | Outpatient (BNV) | payer MEDICARE, SELFPAY | PROVIDERS: PCP Internal Medicine; Visit Provider Internal Medicine | DX: R06.83 Snoring (principal) | CPT/HCPCS: 95806 ==

== ENCOUNTER 2023-11-08 15:34 | Outpatient (AMB) | payer MEDICARE, SELFPAY ==
--- NOTE | 2023-11-08 15:47 | MHC.OFFVIS ---
Vital Signs 11/08/23 15:53 Height 5 ft 9 in Weight 279 lb 15.793 oz BMI 41.3 BP 124/72 Intake Visit Reasons: EMB results Computing Services Director: Computing Services Director Present Allergies Penicillins [PENICILLINS] Allergy (Intermediate, Verified 11/01/23 07:47) TONGUE SWELLING,SKIN PEELING ON FINGERS Is last menstrual period known: Yes Last menstrual period: 04/24/20 Post menopausal: No Patient : No Do you need a note to return to daycare/school/sports/work: Yes (for surgery on tuesday) HPI Comments Details: The patient is presenting after endometrial biopsy. The patient has no complaints, no vaginal bleeding, no feverishness chills or abdominal pain. The endometrial biopsy pathology showed the following: Endometrium, biopsy: - Superficial strips of benign endometrium; small fragment with features of lower uterine segment polyp; no atypia identified. - Strips of endocervical and squamous epithelium within normal limits Pelvic ultrasound on 10/22 showed the following: Uterus: The uterus is anteverted and measures 7.1 x 2.8 x 4.9 cm. The double wall endometrial thickness is thickened at 10 mm. Cystic areas are seen within the endometrial canal. Previous appearances were similar. The uterus is smooth in contour and has normal myometrial echogenicity. No visible fibroid. Adnexa: Neither ovary was seen. No free fluid detected in the cul-de-sac Co testing in 07/20 was negative [facility] Medical History Rosacea COVID-19 vaccine series completed Osteoarthritis History of positive PPD History of cardioversion A-fib Surgical History History of total left hip replacement History of cardiac radiofrequency ablation Hx of section Hx of colonoscopy Hx of gastric bypass History of total left knee replacement History of total right knee replacement Family History Father No problems noted. Mother No problems noted. 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 Reproductive History Menstrual Age of Menarche: 15 Date of last menstrual period: 04/24/20 Total pregnancies: 2 Full term: 2 Review of Systems Const All systems reviewed & are unremarkable except as noted in HPI and below Reports as per HPI and Reports no additional complaints Card Reports as per HPI and Reports no additional complaints Resp Reports as per HPI and Reports no additional complaints GI Reports no additional complaints Reports no additional complaints Physical Exam Vital Signs: Last Vital Signs BP 124/72 11/08/23 15:53 BMI result Body Mass Index 41.3 Assessment & Plan Assessment & Plan (1) Postmenopausal bleeding: Comment: Lower uterine segment polyp on EMB pathology Thick cystic endometrium by ultrasound Code(s): N95.0 - Postmenopausal bleeding Category: Medical Plan: Discussed with the patient the results the endometrial biopsy showing benign endometrium with a small fragments of lower uterine segment polyp, recommended hysteroscopy D&C possible polypectomy/myomectomy. Since the patient has AFib status post atrial ablation and is on Eliquis will refer to [facility] to have the procedure there a tertiary care center where more resources are available. All questions answered, the patient verbalized understanding and agreed with the plan Coding Level of Care Code Est Pt Level 3 (26362) Diagnoses Postmenopausal bleeding N95.0
[2023-11-08 15:53] VITALS: BP 124/72; BMI 41.3
== END 2023-11-08 16:24 | disposition home or self-care (01) ==
LOC: HO.HWS 15:34
PROVIDERS: PCP Internal Medicine; Visit Provider Obstetrics & Gynecology
DX: N95.0 Postmenopausal bleeding (principal)
CPT/HCPCS: 99213

== ENCOUNTER → 2023-11-08 15:34 | Outpatient (BNVA) | payer MEDICARE, SELFPAY | PROVIDERS: PCP Internal Medicine; Visit Provider Obstetrics & Gynecology | DX: N95.0 Postmenopausal bleeding (principal); N84.0 Polyp of corpus uteri; Z98.890 Other specified postprocedural states | CPT/HCPCS: 99212 ==

== ENCOUNTER 2024-01-13 14:01 | Emergency (ER) | payer MEDICARE, SELFPAY ==
--- NOTE | ~2024-01-13 | CT_ITS ---
EXAMINATION: CT SOFT TISSUE NECK WITH CONTRAST CLINICAL INFORMATION: Right-sided dental infection. Swelling, pain, fevers. COMPARISON: None available. TECHNIQUE: Following the intravenous administration of 65 mL of Omnipaque 350 intravenous contrast, helical imaging was performed in the axial plane with generation of coronal and sagittal reformatted images. This CT examination was performed using dose optimization techniques as appropriate, variously including the following: *Automated exposure control *Adjustment of mA and/or kV according to patient size (this includes techniques or standardized protocols for targeted exams where dose is matched to indication/reason for exam; i.e. extremities or head) *Use of iterative reconstruction technique DLP: 673 mGy-cm FINDINGS: Periapical lucency adjacent to the left mandibular first molar, consistent with a periapical dental abscess. There is adjacent soft tissue stranding and edema with heterogeneous density, consistent with early phlegmonous change. No organized fluid collection or abscess formation. Mild overlying skin thickening, which could represent associated cellulitis. Reactive left submandibular lymph nodes. No additional periapical lucency/disease. There is no acute maxillofacial fracture. The pterygoid plates are intact. The zygomatic arches are intact. The lamina papyracea are intact. The orbital rims are intact. Straightening normal cervical lordosis which may be positional or related muscle spasm. No cervical fracture or subluxation. Degenerative disc disease at C5-C6 and C6-C7. No concerning lytic or blastic osseous lesion. The paraspinal soft tissues are unremarkable. No soft tissue mass or fluid collection. Unremarkable thyroid. The visualized lung apices are clear. CT/CT soft tissue neck w IV con IMPRESSION: 1. Periapical lucency adjacent to the left mandibular first molar, consistent with a periapical dental abscess. Adjacent soft tissue stranding and edema with heterogeneous density, consistent with early phlegmonous change. No organized fluid collection or abscess formation. Mild overlying skin thickening, which could represent associated cellulitis. Reactive left submandibular lymph nodes. 2. Straightening of the normal cervical lordosis which may be positional or related muscle spasm. Degenerative disc disease at C5-C6 and C6-C7.
--- NOTE | 2024-01-13 14:28 | ED.GENADULT ---
HPI - General Adult General Chief complaint: Dental/Oral Stated complaint: Dental Infection Time Seen by Provider: 01/13/24 19:43 Source: patient Mode of arrival: ambulatory Limitations: no limitations History of Present Illness ED Provider: DANY HPI narrative: 68 yo female with PMH of arthritis, PAF on eliquis, arthritis here with c/o dental infection for 4 days has been on clindamycin for 2 days went to dentist again today as she is having fevers and has now ball to lower lower jaw. Dentist sent her to ED as they did not want to manage abscess. Her last dose of eliquis was 24 hours ago. complaint: tooth infection Onset (ago): day(s) (4) Location: mouth Radiation: non-radiation Severity: moderate Quality: aching Pain Consistency: constant Relieving factors: none Exacerbating factors: eating Associated symptoms: fever/chills Treatments prior to arrival: other (clindamycin) Related Data Previous Rx's ?Medication ?Instructions ?Recorded apixaban 5 mg tablet (Eliquis) 5 mg PO BID #120 tabs 01/12/22 flecainide 50 mg tablet 100 mg (2 x 50 mg) PO BID 90 days 01/03/23 #360 tabs metoprolol succinate 25 mg 75 mg (3 x 25 mg) PO DAILY #270 04/25/23 tablet,extended release 24 hr tabs Allergies Allergy/AdvReac Type Severity Reaction Status Date / Time Penicillins [PENICILLINS] Allergy Intermediate TONGUE Verified 01/13/24 14:30 SWELLING,SKIN PEELING ON FINGERS Review of Systems Review of Systems: Constitutional : pos Fever, No Chills ENT/Mouth : No swallowing difficulty, no change in voice, positive dental pain, positive jaw pain, positive facial swelling Eyes: No Eye Pain, No Swelling Cardiovascular : No Chest Pain, No SOB Respiratory : No Cough, No Sputum Gastrointestinal : No Nausea, No Vomiting, No Diarrhea Genitourinary : No Dysuria Musculoskeletal : No Myalgias Skin : No rash Neuro : No Weakness, No Numbness, No Headache all other systems reviewed and are negative PMFSH Past Medical History Attestation statement: The following information was validated with the patient. Source: old records reviewed Medical History Rosacea COVID-19 vaccine series completed Osteoarthritis History of positive PPD History of cardioversion A-fib Surgical History History of total left hip replacement History of cardiac radiofrequency ablation Hx of section Hx of colonoscopy Hx of gastric bypass History of total left knee replacement History of total right knee replacement Family History Family History Father No problems noted. Mother No problems noted. 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 Oriented X3. No acute distress. Eyes: Pupils equal, round and reactive to light. ENT: Pharynx L lower jaw near canine fluctuant abscess noted but no submandibular or sublingual swelling no drooling or change in voice Neck: Normal inspection. Neck supple. CVS: Normal heart rate and rhythm. Pulses normal. Respiratory: No respiratory distress. Breath sounds normal. Abdomen: Soft and non-tender. Skin: Skin warm and dry. Normal skin color. Normal skin turgor. Extremities: No lower extremity edema. No calf ttp Neuro: Oriented X 3. No motor deficit. No sensory deficit. Course Course Course Narrative: This is an RME performed by Harsh Scott CNP: Additional HPI, ROS, PE not included below will be deferred to primary provider. Patient is a 68-year-old female who presents to the emergency department for evaluation of R lower dental pain x 4 days, Reports 3 days ago she was started on clindamycin by her dentist, reports increasing swelling and pain, fevers at home with T-max 103. Plan: Labs, CT soft tissue neck Reevaluation(s) Reevaluation #1: no bleeding after procedure doing well - stable for DC Medications Administered Discontinued Medications Generic Name Dose Route Start Last Admin Trade Name Lottie PRN Reason Stop Dose Admin Clindamycin Phosphate 900 mg in 50 mls @ 50 mls/hr 01/13/24 20:17 01/13/24 21:08 Cleocin IV 01/13/24 21:16 50 mls/hr ONCE ONE Administration Iohexol 100 ml 01/13/24 20:03 01/13/24 20:04 Iohexol 350 Mg/Ml 100 Ml Infus..Btl IV 01/13/24 20:04 60 ml ONCE ONE Administration Procedures Abscess I/D Site: oral Side (if applicable): left Local Anesthetic: lidocaine 1% Amount of anesthesia used (mL): 2 Technique: needle aspiration Amount of fluid expressed (mL): 1 Sent for culture/gram staining?: No Irrigation: No Packing used?: none Medical Decision Making Medical Decision Making [facility] Narrative: 68 yo female with PMH of arthritis, PAF on eliquis, arthritis here with c/o L lower jaw swelling with localized fluctuance and dental swelling no improvement with 2 days of clindamycin at this time will give IV dose of clindamycin obtain CT scan has been off eliquis for 24 hours she needs drainage will aspirate area and continue treatment. No signs of airway compromise Differential Diagnosis Differential Diagnoses: The differential diagnosis associated with the presentation includes toothache , dental abscess Admission/Observation Consideration of admission/observation: Escalation of care including admission/observation considered no toxic isolated dental abscess can be managed as outpatient Lab Data [facility] Lab Attestation statement: I reviewed the patient's lab results. 01/13/24 14:45 01/13/24 14:45 Labs: Lab Results 01/13/24 Range/Units 14:45 WBC 10.6 (4.8-10.8) X10*3/uL RBC 4.28 (4.20-5.50) X10*6/uL Hgb 13.4 (12.0-16.0) g/dl Hct 39.7 (37.0-47.0) % MCV 92.8 (80.0-98.0) fL MCH 31.3 (27.0-33.0) pg MCHC 33.8 (31.0-35.0) g/dl RDW 14.0 (11.0-16.0) % Plt Count 204 (160-400) X10*3/uL MPV 9.9 (9.4-12.3) fL Immature Gran % (Auto) 0.3 (0.0-0.4) % Neut % (Auto) 71.0 (45-73) % Lymph % (Auto) 18.7 L (20-40) % [place] % (Auto) 8.7 (2-11) % Eos % (Auto) 0.9 (0-4) % Baso % (Auto) 0.4 (0-2) % Lymph # (Auto) 2.0 (1.2-4.9) X10*3/uL [place] # (Auto) 0.9 (0.1-1.2) X10*3/uL Eos # (Auto) 0.1 (0.0-0.4) X10*3/uL Baso # (Auto) 0.0 (0.0-0.2) X10*3/uL Abs Immat Gran (auto) 0.03 (0.00-0.03) X10*3/uL Absolute Neuts (auto) 7.6 (2.0-8.3) x10*3/uL Absolute Nucleated RBC 0.000 (0.0-0.012) X10*3/uL Nucleated RBC % (auto) 0.0 (0.0-0.2) /100WBC Sodium 140 (135-145) mmol/L Potassium 4.0 (3.3-5.1) mmol/L Chloride 103 (96-108) mmol/L Carbon Dioxide 25 (22-29) mmol/L Anion Gap 16 (12-20) BUN 11 (9-16) mg/dL Creatinine 0.99 (0.5-1.4) mg/dL Estim Creat Clear Calc 79.1 Estimated GFR 56 Random Glucose 107 (60-115) mg/dL Calcium 9.5 D (8.4-10.2) mg/dL Total Bilirubin 0.5 (0.0-1.0) mg/dL AST 10 (5-31) U/L ALT 9 (0-31) U/L Alkaline Phosphatase 93 (39-117) U/L Total Protein 7.7 (6.5-8.0) g/dL Albumin 4.2 (3.5-5.0) g/dL Independent Interpretation I performed an independent interpretation of an: CT Scan Radiology Impression Discussion of test interpretation with radiology: I have reviewed the radiologist's reading. External Record Review External record reviewed: Inpatient record Discharge Plan Discharge Clinical Impression: Abscess, dental Patient Disposition: Home, Self-Care Instructions: Dental Abscess (ED) Additional Instructions: return for worsening symptoms - swelling, difficulty breathing, issue moving neck or any other concerns continue antibiotics given night dose already hold eliquis tomorrow - follow up with dentist Tuesday clindamycin can cause diarrhea please take a probiotic return for worsening bleeding hold pressure or apply ice/water soaked tea bags if you bleed - hold pressure for 15 minutes Prescriptions: No Action flecainide 50 mg tablet 100 mg PO BID 90 Days Qty: 360 3RF metoprolol succinate 25 mg tablet extended release 24 hr 75 mg PO DAILY Qty: 270 3RF Eliquis 5 mg tablet 5 mg PO BID Qty: 120 0RF Print Language: Montserratian
[2024-01-13 14:29] VITALS: BP 137/86; PULSE 68; RESP 19; TEMP 37.4; O2SAT 98; BMI 40.6
[2024-01-13 14:50] LABS: MANUAL DIFF FLAG NO
[2024-01-13 14:51] LABS: Basophils Percent Auto 0.4 % (0-2); Eosinophils Absolute Auto 0.1 X10*3/uL (0.0-0.4); Eosinophils Percent Auto 0.9 % (0-4); Hematocrit 39.7 % (37.0-47.0); Hemoglobin 13.4 g/dl (12.0-16.0); Imm Gran Abs Auto 0.03 X10*3/uL (0.00-0.03); Imm Gran Pct Auto 0.3 % (0.0-0.4); Lymphocytes Percent Auto 18.7 % (20-40); Mean Corpuscular HGB Conc 33.8 g/dl (31.0-35.0); Mean Corpuscular Hemoglobin 31.3 pg (27.0-33.0); Mean Corpuscular Volume 92.8 fL (80.0-98.0); Mean Platelet Volume 9.9 fL (9.4-12.3); Monocytes Absolute Auto 0.9 X10*3/uL (0.1-1.2); Monocytes Percent Auto 8.7 % (2-11); Neutrophils Absolute Auto 7.6 x10*3/uL (2.0-8.3); Platelet Count 204 X10*3/uL (160-400); Red Blood Count 4.28 X10*6/uL (4.20-5.50); White Blood Count 10.6 X10*3/uL (4.8-10.8)
[2024-01-13 15:39] LABS: Anion Gap 16 (12-20); Blood Urea Nitrogen 11 mg/dL (9-16); Carbon Dioxide 25 mmol/L (22-29); Chloride 103 mmol/L (96-108); Sodium 140 mmol/L (135-145)
[2024-01-13 15:40] LABS: Creatinine Clr Calc Pharmacy 79.1; Estimated Glomerular Filt Rate 56
[2024-01-13 15:41] LABS: Alanine Aminotransferase 9 U/L (0-31); Aspartate Amino Transferase 10 U/L (5-31); Bilirubin Total 0.5 mg/dL (0.0-1.0); Calcium 9.5 mg/dL (8.4-10.2); Glucose Random 107 mg/dL (60-115); Total Protein 7.7 g/dL (6.5-8.0)
[2024-01-13 15:42] LABS: Albumin Level 4.2 g/dL (3.5-5.0); Alkaline Phosphatase 93 U/L (39-117)
[2024-01-13] MEDS: iohexoL 350 MG/ML 100 ML INFUS..BTL IV (20:04)
[2024-01-13] MEDS: Clindamycin Phosphate/D5W 900 MG/50 ML PIGGYBACK 50 MG IV (21:08)
[2024-01-13] MEDS: Lidocaine HCl 1 % MPF 5 ML VIAL SUBCUT (21:30)
[2024-01-13 22:00] VITALS: BP 140/81; PULSE 63; RESP 20; TEMP 37.1; O2SAT 97
[2024-01-13 22:10] VITALS: BP 140/81; PULSE 63; RESP 20; TEMP 37.1; O2SAT 97
== END 2024-01-13 22:12 | disposition home or self-care (01) ==
PROVIDERS: Nurse Practitioner Family; Emergency Provider Emergency Medicine; PCP Internal Medicine
DX: K04.7 Periapical abscess without sinus (principal); R50.9 Fever, unspecified; I48.91 Unspecified atrial fibrillation; Z79.01 Long term (current) use of anticoagulants; Z87.891 Personal history of nicotine dependence
CPT/HCPCS: 10160; 36415; 70491; 80053; 85025; 96365; 99284; J0736; Q9967

== ENCOUNTER 2024-04-11 14:36 | Outpatient (AMB) | payer MEDICARE, SELFPAY ==
[2024-04-11 14:39] VITALS: BP 122/68; PULSE 68; O2SAT 99; BMI 42.2
--- NOTE | 2024-04-11 14:39 | A.OFFVIS_ITS ---
Vital Signs 04/11/24 14:39 Height 5 ft 9 in Weight 285 lb 7.978 oz BMI 42.2 BP 122/68 Blood Pressure Location Rt brachial Position Sitting Pulse 68 Pulse Source Doppler Pulse Oximetry (%) 99 Oxygen Delivery Method Room Air Intake Visit Reasons: Obstructive sleep apnea Allergies Penicillins [PENICILLINS] Allergy (Intermediate, Verified 01/13/24 14:30) TONGUE SWELLING,SKIN PEELING ON FINGERS HPI HPI Obstructive sleep apnea: Details: 67-year-old lady, former minimal smoker greater than 20 years prior, now followed for mild obstructive sleep apnea on CPAP therapy. Patient states that she has been using her CPAP therapy with good control of his symptoms. She does complain of some mucous membrane dryness in the morning. [facility] Medical History Rosacea COVID-19 vaccine series completed Osteoarthritis History of positive PPD History of cardioversion A-fib Surgical History History of total left hip replacement History of cardiac radiofrequency ablation Hx of section Hx of colonoscopy Hx of gastric bypass History of total left knee replacement History of total right knee replacement Family History Father No problems noted. Mother No problems noted. 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 Reproductive History Menstrual Age of Menarche: 15 Review of Systems Const Denies daytime sleepiness, Denies excessive sweating, Denies fatigue, Denies fever(s), Denies lethargy, Denies malaise, Denies night sweats, Denies snoring and Denies weight loss Eyes Denies blurry vision and Denies itchy eyes ENT Denies nasal congestion, Denies post nasal drip, Denies sinus pain, Denies sinus pressure and Denies other ( Thrush) Card Denies chest pain, Denies pedal edema, Denies dyspnea, Denies orthopnea and Denies paroxysmal nocturnal dyspnea Resp Denies cough, Denies hemoptysis, Denies excessive phlegm production, Denies dys pnea, Denies snoring and Denies wheezing GI Denies abdominal pain and Denies heartburn Musc Denies myalgias, Denies arthralgias and Denies joint swelling Skin/Breast Denies rash Neuro Denies memory loss and Denies seizure-like activity Psych Denies abnormal sleep pattern, Denies anxiety and Denies memory loss Endo Denies excessive sweating, Denies fatigue and Denies heat intolerance Bob/Lymph Denies easy bruising Aller/Immun Denies itchy eyes, Denies seasonal rhinorrhea and Denies wheezing Physical Exam Vital Signs: Last Vital Signs Pulse 68 04/11/24 14:39 BP 122/68 04/11/24 14:39 Pulse Ox 99 04/11/24 14:39 Oxygen Delivery Method Room Air 04/11/24 14:39 BMI result Body Mass Index 42.2 Const General: no acute distress and alert Nutritional Appearance: not obese Orientation/consciousness: Other orientation findings ( oriented) HEENT Head: Yes atraumatic Eyes General: appearance normal, both eyes and all related structures Sclerae: sclerae normal EOM: EOMs intact bilaterally Neck Neck: Yes supple Lymphatic: no lymphadenopathy noted Resp Effort & Inspection: normal respiratory effort and no use of accessory muscles Auscultation: clear to auscultation bilaterally Cardio Rate: regular rate Rhythm: regular rhythm Heart sounds: no gallops, no murmurs and no rubs Skin General skin exam: other ( warm) Extrem General: No clubbing, No cyanosis and No edema Assessment & Plan Assessment & Plan (1) CIPRIANO (obstructive sleep apnea): Code(s): G47.33 - Obstructive sleep apnea (adult) (pediatric) Category: Medical Plan: Controlled on current CPAP therapy. Continue CPAP therapy. Coding Level of Care Code Est Pt Level 3 (29482) Diagnoses CIPRIANO (obstructive sleep apnea) G47.33
== END 2024-04-11 15:51 | disposition home or self-care (01) ==
PROVIDERS: PCP Internal Medicine; Visit Provider Internal Medicine Pulmonary Disease
DX: G47.33 Obstructive sleep apnea (adult) (pediatric) (principal)
CPT/HCPCS: 99213

== ENCOUNTER → 2024-04-11 14:36 | Outpatient (BNVA) | payer MEDICARE, SELFPAY | PROVIDERS: PCP Internal Medicine; Visit Provider Internal Medicine Pulmonary Disease | DX: G47.33 Obstructive sleep apnea (adult) (pediatric) (principal) | CPT/HCPCS: 99212 ==

== ENCOUNTER 2024-07-25 13:19 | Outpatient (AMB) | payer MEDICARE, SELFPAY ==
[2024-07-25 13:28] VITALS: BP 122/68; PULSE 57; BMI 34.7
--- NOTE | 2024-07-25 13:28 | MHC.OFFVIS ---
Vital Signs 07/25/24 13:28 Height 5 ft 9 in Weight 235 lb BMI 34.7 BP 122/68 Blood Pressure Location Lt brachial Position Sitting Pulse 57 Pulse Source Monitor Intake Visit Reasons: 6 month follow-up with ekg Allergies Penicillins [PENICILLINS] Allergy (Intermediate, Verified 01/13/24 14:30) TONGUE SWELLING,SKIN PEELING ON FINGERS Medication List - Last Reconciled 07/25/24 by Robert Hernandez MD apixaban (Eliquis) 5 mg PO BID flecainide 100 mg (2 x 50 mg) PO BID 90 days metoprolol succinate ER 75 mg (3 x 25 mg) PO DAILY HPI Comments Details: Vida returns for follow-up. To recall, she had atrial fibrillation ablation in 2011. In 2014, she had ERVIN/cardioversion and was on Multaq for a while till 2015. Then went back into atrial fibrillation. Then again performed cardioversion. Then we kept on flecainide and beta-blockers and she was doing well. Then had weight loss surgery and lost more than 100 lb. Then we stopped the flecainide as well as anticoagulation. Maintained on beta-blockers only. However, she gained a lot of weight back. In 2021, had another episode of atrial fibrillation with rapid rate. Then underwent ERVIN/cardioversion. Then resumed on beta-blockers and flecainide. Also on anticoagulation. Over the last year or so, again she is losing weight. No further episodes of atrial fibrillation. Getting along fine. [facility] Medical History Rosacea COVID-19 vaccine series completed Osteoarthritis History of positive PPD History of cardioversion A-fib Surgical History History of total left hip replacement History of cardiac radiofrequency ablation Hx of section Hx of colonoscopy Hx of gastric bypass History of total left knee replacement History of total right knee replacement Family History Father No problems noted. Mother No problems noted. Social History Household Members: Children Household Members Other:: son Housing: House Are you a primary healthcare account manager to a significant other at home: No Do you presently have visiting nurse or other home services: No Patient Tobacco Use Status: Former Tobacco user Second Hand Smoke Exposure: No service: No Current occupational status: employed Current occupation: [employer] - Right Handed Female Reproductive History Menstrual Age of Menarche: 15 Review of Systems Const Denies weakness ENT Denies dizziness Card Denies chest pain, Denies chest pain with activity, Denies syncope, Denies rapid heart rate, Denies pedal edema, Denies edema, Denies leg edema, Denies lightheadedness, Denies palpitations, Denies dyspnea, Denies dyspnea on exertion and Denies orthopnea Resp Denies cough, Denies dyspnea and Denies dyspnea on exertion GI Denies hematochezia and Denies change in stool character Musc Denies abnormal gait, Denies muscle cramps, Denies muscle weakness, Denies numbness, Denies radiating pain into limb and Denies tingling Neuro Denies abnormal gait, Denies dizziness, Denies syncope, Denies numbness, Denies tingling and Denies weakness Endo Denies palpitations Physical Exam Vital Signs: Last Vital Signs Pulse 57 07/25/24 13:28 BP 122/68 07/25/24 13:28 BMI result Body Mass Index 34.7 Const General: comfortable and no acute distress Orientation/consciousness: patient oriented x3 HEENT Other: Unremarkable Head: Yes normal to inspection Neck Neck: Yes normal visual inspection Chest Chest palpation & inspection: normal inspection of the chest Resp Auscultation: clear to auscultation bilaterally Cardio Palpation: normal PMI Heart sounds: S1 normal heart sound present, S2 normal heart sound present, no gallops, no murmurs and no rubs GI Palpation (GI): Soft to palpation Back/Spine/Pelvis Other: unremarkable Skin General skin exam: no rashes or lesions noted Neuro General: patient oriented x3 Extrem General: Yes normal to inspection Psych Mental Status: mental status grossly normal Office Procedures EKG Details: EKG with sinus bradycardia at 57/Min; nonspecific ST-[place] changes; [place] [address]-[id number], Complete Assessment & Plan Assessment & Plan (1) PAF (paroxysmal atrial fibrillation): Code(s): I48.0 - Paroxysmal atrial fibrillation Category: Medical (2) Encounter for monitoring anti-arrhythmic therapy: Code(s): Z51.81 - Encounter for therapeutic drug level monitoring; Z79.899 - Other custodial (current) drug therapy Category: Medical (3) Morbid obesity: Code(s): E66.01 - Morbid (severe) obesity due to excess calories Category: Medical Plan s/p atrial fibrillation ablation 2011. ERVIN/cardioversion 2014. Cardioversion 2015. ERVIN cardioversion January/2022. Weight is probably a big reason why she is getting recurrences. In 2020, she was only 200 lb. Then, it seems she went up as much as 285 lb last year. Currently she has lost around 50 lb and weight is 235 lb today. We discussed the fact that if she can indeed keep her weight down, lower likelihood of getting atrial fibrillation. We also discussed about EP referral for yet another ablation, but holding off for now as she has not had any events in a while. In the interim, we discussed about continuing her medications. We discussed about stopping flecainide but she feels extremely comfortable rather continuing it as she feels the atrial fibrillation may return otherwise. Hence we can keep it going without changes. Continue beta-blockers. Continue anticoagulation. Hopefully, continue to lose weight. Cardiac testing- [id number] 60-65%; mild mitral regurgitation. Myocardial perfusion imaging -2021-likely normal perfusion. [id number] rhythm with an average of 64/Min. Rare PACs. Follow-up in 6 months. Coding Level of Care Code Est Pt Level 4 (59814) Diagnoses PAF (paroxysmal atrial fibrillation) I48.0 Encounter for monitoring anti-arrhythmic therapy Z51.81; Z79.899 Morbid obesity E66.01 CPT Codes EKG - CPT: 23058-[id number], Complete ([id number])
== END 2024-07-25 14:00 | disposition home or self-care (01) ==
PROVIDERS: PCP Internal Medicine; Visit Provider Internal Medicine
DX: I48.0 Paroxysmal atrial fibrillation (principal); Z51.81 Encounter for therapeutic drug level monitoring; Z79.899 Other long term (current) drug therapy; E66.01 Morbid (severe) obesity due to excess calories
CPT/HCPCS: 93010; 99214

== ENCOUNTER → 2024-07-25 13:19 | Outpatient (BNVA) | payer MEDICARE, SELFPAY | PROVIDERS: PCP Internal Medicine; Visit Provider Internal Medicine | DX: I48.0 Paroxysmal atrial fibrillation (principal); E66.01 Morbid (severe) obesity due to excess calories; Z51.81 Encounter for therapeutic drug level monitoring; R94.31 Abnormal electrocardiogram [ECG] [EKG]; R00.1 Bradycardia, unspecified; Z68.34 Body mass index [BMI] 34.0-34.9, adult; Z79.899 Other long term (current) drug therapy | CPT/HCPCS: 93005; 99212 ==

== ENCOUNTER 2024-12-06 12:22 | Outpatient (AMB) | payer MEDICARE, SELFPAY ==
--- NOTE | 2024-12-06 12:35 | MHC.OFFVIS ---
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 No complaints. Last Pap/HPV was negative in 07/19 Last Mammogram was BI-RADS 2 in 11/17 Last Colonoscopy was many years ago, the patient was scheduled with GI office and was canceled and is in the process of scheduling her next screening colonoscopy Last DEXA scan was in 11/17 [facility] Medical History Rosacea COVID-19 vaccine series completed Osteoarthritis History of positive PPD History of cardioversion A-fib Surgical History History of total left hip replacement History of cardiac radiofrequency ablation Hx of section Hx of colonoscopy Hx of gastric bypass History of total left knee replacement History of total right knee replacement Family History Father No problems noted. Mother No problems noted. 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 Reproductive History Menstrual Age of Menarche: 15 control method: none Total pregnancies: 4 Full term: 2 Date of last pap smear: 07/19/22 (negative pap smear, negative hpv ) Date of Mammogram: 10/26/23 (bi rad 2) Review of Systems Const All systems reviewed & are unremarkable except as noted in HPI and below Card Reports as per HPI Resp Reports as per HPI GI Reports as per HPI and Reports no additional complaints Reports as per HPI Physical Exam Vital Signs: Last Vital Signs BP 124/74 12/06/24 12:39 BMI result Body Mass Index 43.1 Const General: cooperative, healthy appearing and comfortable Chest Chest palpation & inspection: normal inspection of the chest and normal palpation of entire chest wall Breast/axilla inspection: normal inspection of the breasts and normal inspection of the axillae Breast/axilla palpation: normal palpation of the breasts, normal palpation of the axillae and no axillary lymphadenopathy Resp Effort & Inspection: normal respiratory effort Auscultation: clear to auscultation bilaterally Percussion: percussion normal Cardio Palpation: normal PMI Rate: regular rate Rhythm: regular rhythm Heart sounds: no murmurs and no rubs Peripheral pulses: Peripheral pulses 2+ throughout GI Inspection: Yes normal to inspection Palpation (GI): Soft to palpation, nontender, no guarding, not rigid and No hepatosplenomegaly present Percussion: Yes normal to percussion Auscultation: normal bowel sounds Rectal Exam - Female: deferred General: Yes bladder normal to palpation External Female Exam: No lesion Speculum Exam - Vagina: normal appearance of the vagina, normal palpation, normal vaginal discharge and not erythematous Speculum Exam - Cervix: normal appearance of the cervix and normal palpation Bimanual exam- vagina & uterus: normal bimanual exam, normal palpation, uterine size normal, bladder normal to palpation, consistency normal and normal palpation Bimanual Exam- Adnexa, other: normal adnexae, no masses and no tenderness Assessment & Plan Assessment & Plan (1) Well woman exam: Code(s): Z01.419 - Encounter for gynecological examination (general) (routine) without abnormal findings Category: Medical Plan: Co testing not indicated this year. Counseled the patient about the recommended dietary allowance of 1200 mg of Calcium & 600 IU of vitamin D. Mammogram scheduled on 12/11/2024. The patient was referred to GI and is in the process of scheduling her next appointment for screening colonoscopy . The patient was instructed to perform monthly self-breast exams and schedule annual exam in a year. All questions answered and the patient verbalized understanding. Coding Level of Care Code Est Pt Prev Care >65y(43454) Diagnoses Well woman exam Z01.419
[2024-12-06 12:39] VITALS: BP 124/74; BMI 43.1
== END 2024-12-06 13:02 | disposition home or self-care (01) ==
LOC: HO.HWS 12:23
PROVIDERS: PCP Internal Medicine; Visit Provider Obstetrics & Gynecology
DX: Z72.51 High risk heterosexual behavior (principal)
CPT/HCPCS: G0101

== ENCOUNTER → 2024-12-06 12:22 | Outpatient (BNVA) | payer MEDICARE, SELFPAY | PROVIDERS: PCP Internal Medicine; Visit Provider Obstetrics & Gynecology | DX: Z01.419 Encounter for gynecological examination (general) (routine) without abnormal findings (principal) | CPT/HCPCS: G0101 ==

== ENCOUNTER 2024-12-10 13:15 | Outpatient (AMB) | payer MEDICARE, SELFPAY ==
--- NOTE | 2024-12-10 13:26 | A.OFFPC_ITS ---
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 Accompanied by: Self / Same As Patient Allergies Penicillins [PENICILLINS] Allergy (Intermediate, Verified 12/10/24 13:26) TONGUE SWELLING,SKIN PEELING ON FINGERS Medication List - Last Reconciled 12/11/24 by NANNETTE Kerr apixaban (Eliquis) 5 mg PO BID flecainide 100 mg (2 x 50 mg) PO BID 90 days metoprolol succinate ER 75 mg (3 x 25 mg) PO DAILY ofloxacin 0.3% 2 drps ophthalmic (eye) QID 7 days HPI HPI Comments History of Present Illness Details 69-year-old female with history of parox ysmal atrial fibrillation, CIPRIANO compliant with CPAP, osteoarthritis, hypertension presents to the office today for management of chronic conditions and to establish care. Hypertension-blood pressure 120/82 in the office. Compliant with Toprol 75 mg daily Paroxysmal atrial fibrillation-s/p cardiac ablation 2014. Continues on flecainide 100 mg twice daily and Eliquis 5 mg twice daily. Following with Dr. Hernandez cardiology former smoker- quit 20 years ago occ etoh no drugs Lives with home and son. Retired Concerns: Weight management. Struggles with willpower with diet compliance. h/o gastric sleeve 6 years ago. Lost to follow up. Difficult with mobility following joint replacements. Chronic stye ongoing x 6 months. Has tried multiple topical ointments, warm compresses, and avoids make up but persists R eye. Not affecting vision Health maintenance: Last screening mammogram 10/2023, overdue. Last mammo negative for evidence of malignancy. Last DEXA scan 10/2023 showing normal bone density Due for colonoscopy ROS: General: No fevers, malaise, unintentional weight loss HEENT: see hpi. No sore throat, nasal congestion, rhinorrhea, sinus pain, ear pain Neck - no adenopathy Cardiovascular: No chest pain, palpitations, or leg edema Respiratory: No shortness of breath, wheezing, cough GI: No abdominal pain, nausea, vomiting, diarrhea, constipation, melena, hematochezia : No dysuria, hematuria, increased urinary frequency, decreased urinary output MSK: No myalgia, back pain, arthralgias Neuro: No headaches, weakness, paresthesias Psych: no depression/anxiery. No AH/VH. No SI/HI Skin: No rashes or lesions EXAM: Constitutional - Awake and Alert, No apparent distress Eyes - PERRLA, EOMI. Anicteric. External hordeolum noted left lower eyelid margin. No conjunctival injection Nose- septum midline, nares clear, no sinus tenderness Mouth/throat- mucosa moist, tongue and uvula midline, no erythema/edema or tonsillar adenopathy. Neck-trachea midline, thyroid symmetric without palpable nodules, no adenopathy Cardiovascular - S1S2, RRR, No edema Respiratory - Normal lung expansion, Normal respiratory effort, No respiratory distress, CTA bilaterally Gastrointestinal - NT / ND; +BS; No rebound or guarding - No CVA tenderness Extremities - no calf tenderness bilaterally, no swelling Musculoskeletal - Normal inspection, normal ROM Skin - Warm/Dry Neurological - Alert & oriented x3, CN II-XII in tact, 5/5 strength BUE and BLE Psychological - Appropriate affect PFSH Medical History (Updated 12/10/24 @ 13:51 by NANNETTE Kerr) Uterine polyp Rosacea COVID-19 vaccine series completed Osteoarthritis History of positive PPD History of cardioversion A-fib Surgical History History of total left hip replacement History of cardiac radiofrequency ablation Hx of section Hx of colonoscopy Hx of gastric bypass History of total left knee replacement History of total right knee replacement Family History (Updated 12/10/24 @ 13:52 by NANNETTE Kerr) Father Alzheimer dementia Mother Atrial fibrillation Social History Household Members: Children Household Members Other:: son Housing: House Are you a primary medicare insurance specialist to a significant other at home: No Do you presently have visiting nurse or other home services: No Patient Tobacco Use Status: Former Tobacco user Second Hand Smoke Exposure: No service: No Current occupational status: employed 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 1. Little interest or pleasure in doing things: not at all 2. Feeling down, depressed, or hopeless: not at all 3. Trouble falling or staying asleep, or sleeping too much: several days 4. Feeling tired or having little energy: several days 5. Poor appetite or overeating: more than half the days 6. Feeling bad about yourself - or that you are a failure or have let yourself or your family down: not at all 7. Trouble concentrating on things, such as reading the newspaper or watching television: not at all 8. Moving or speaking so slowly that other people could have noticed. Or the opposite - being so fidgety or restless that you have been moving around a lot more than usual: not at all 9. Thoughts that you would be better off or of hurting yourself in some way: not at all Total score: 4 Source: Developed by Drs. Marco Antonio Hicks, Rosa Teran, Wilfredo Gould and colleagues, with an educational noe from [employer]. Thrive Questionnaire Date Thrive assessed: 12/10/24 I am a: Patient What is your living situation today?: I have a steady place to live Within the past 12 months, did the food you bought not last and you didn't have the money to get more?: Never true Within the past 12 months, did you worry whether your food would run out before you got money to buy more?: Never true Do you have trouble paying for medicines?: No Do you have trouble getting transportation to medical appointments?: No Do you have trouble paying your heating and electricity bill?: No Do you have trouble taking care of your child, family member or friend?: No Do you have trouble with day-to-day activities such as bathing, preparing meals, shopping, managing finances, etc.?: No Are you currently unemployed and looking for a job?: No Are you interested in more education?: No Please select the resources that you would like help with: None THRIVE Score: 0 ARISTEO-7 AMB Questionnaire ARISTEO-7 Date ARISTEO - 7 assessed: 12/10/24 Feeling nervous, anxious, or on edge: 0 = Not at all Not being able to stop or control worryin = Not at all Worrying too much about different things: 0 = Not at all Trouble relaxin = Not at all Being so restless that it is hard to sit still: 0 = Not at all Becoming easily annoyed or irritable: 0 = Not at all Feeling afraid as if something awful might happen: 0 = Not at all Total ARISTEO-7 score (0-4 normal; 5-9 mild; 10-14 moderate; 15-21 severe): 0 Source: Developed by Drs. Marco Antonio Hicks, Rosa Teran, Wilfredo Gould and colleagues, with an educational noe from [employer]. Physical exam (Primary Care) Vital Signs: Last Vital Signs Temp 97.7 F 12/10/24 13:30 Pulse 71 12/10/24 13:30 Resp 16 12/10/24 13:30 BP 120/82 12/10/24 13:30 Pulse Ox 97 12/10/24 13:30 Oxygen Delivery Method Room Air 12/10/24 13:30 BMI result Body Mass Index 42.5 Tobacco/Smoking Status: Tobacco use Status Patient Tobacco Use Status Former Tobacco user 12/10/24 13:28 PHQ-9: PHQ-9 Score PHQ-9: Total score 4 12/10/24 20:55 Thrive Assessment: Date of Thrive Assessment Date Thrive assessed 12/10/24 12/10/24 13:41 Coding Level of Care Code Est Pt Level 4 (24558) New Pt Prev Care >65yr (60009) Diagnoses Routine medical exam Z00.00 PAF (paroxysmal atrial fibrillation) I48.0 CIPRIANO (obstructive sleep apnea) G47.33 Morbid obesity E66.01 Hordeolum H00.019 Assessment & Plan Assessment & Plan (1) Routine medical exam: Code(s): Z00.00 - Encounter for general adult medical examination without abnormal findings Plan: 69-year-old female for annual physical exam. Issues below addressed. Labs ordered. (2) PAF (paroxysmal atrial fibrillation): Code(s): I48.0 - Paroxysmal atrial fibrillation Category: Medical Plan: Rate controlled. Continue flecainide and metoprolol. Continue Eliquis for anticoagulation. Follow-up with Cardiology (3) CIPRIANO (obstructive sleep apnea): Comment: On CPAP Code(s): G47.33 - Obstructive sleep apnea (adult) (pediatric) Category: Medical Plan: CPAP (4) Morbid obesity: Code(s): E66.01 - Morbid (severe) obesity due to excess calories Category: Medical Plan: Interested in GLP 1 medications for weight loss. Advised to contact insurance company to determine which medications would be covered. Recommend healthy diet high in protein, fruits, vegetables. Limit intake of refined sugars and simple carbohydrates as well as highly processed foods. Recommend weight-bearing exercise. (5) Hordeolum: Code(s): H00.019 - Hordeolum externum unspecified eye, unspecified eyelid Category: Medical Plan: Chronic. Unresponsive to topical ointments. Trial ofloxacin drops x 7 days. However, may need I&D vs biopsy. Referral placed to ophthomology. Continue warm compresses and avoidance of make up Plan Routine screening labs as ordered below Continue with screening mammograms, Pap smears, colonoscopies Continue following for annual skin exams and use sun protection Annual eye exams Wear seat belt in car Annual dental exams Recommend regular exercise and healthy diet Medications: New ofloxacin 0.3% 2 drps ophthalmic (eye) QID 7 days 10 mL 0RF Patient Instructions: Contact insurance company about Tirzepitide (Zepbound coverage) and what diagnoses are required
[2024-12-10 13:30] VITALS: BP 120/82; PULSE 71; RESP 16; TEMP 36.5; O2SAT 97; BMI 42.5
== END 2024-12-10 14:03 | disposition home or self-care (01) ==
LOC: HO.HMCHD 13:16
PROVIDERS: PCP Internal Medicine; Visit Provider Physician Assistant
DX: H00.015 Hordeolum externum left lower eyelid (principal); I48.0 Paroxysmal atrial fibrillation; G47.33 Obstructive sleep apnea (adult) (pediatric); E66.01 Morbid (severe) obesity due to excess calories

== ENCOUNTER → 2024-12-10 13:15 | Outpatient (BNVA) | payer MEDICARE, SELFPAY | PROVIDERS: PCP Internal Medicine; Visit Provider Physician Assistant | DX: Z00.00 Encounter for general adult medical examination without abnormal findings (principal); Z76.89 Persons encountering health services in other specified circumstances; I48.0 Paroxysmal atrial fibrillation; G47.33 Obstructive sleep apnea (adult) (pediatric); E66.01 Morbid (severe) obesity due to excess calories; Z68.41 Body mass index [BMI] 40.0-44.9, adult; H00.019 Hordeolum externum unspecified eye, unspecified eyelid; Z79.01 Long term (current) use of anticoagulants; Z79.899 Other long term (current) drug therapy; Z99.89 Dependence on other enabling machines and devices | CPT/HCPCS: 96127; 99202 ==

== ENCOUNTER 2024-12-11 13:26 | Outpatient (REF) | payer MEDICARE, SELFPAY | END 2024-12-11 13:27 | disposition home or self-care (01) | LOC: HO.MAMMO 13:26 | PROVIDERS: PCP Internal Medicine; Visit Provider Internal Medicine | DX: Z12.31 Encounter for screening mammogram for malignant neoplasm of breast (principal) | CPT/HCPCS: 77063; 77067 ==

== ENCOUNTER → 2024-12-11 13:30 | Outpatient (BNV) | payer MEDICARE, SELFPAY | PROVIDERS: PCP Internal Medicine; Visit Provider Internal Medicine | DX: Z12.31 Encounter for screening mammogram for malignant neoplasm of breast (principal) | CPT/HCPCS: 77063; 77067 ==

== ENCOUNTER 2025-03-05 14:07 | Outpatient (AMB) | payer MEDICARE, SELFPAY ==
[2025-03-05 14:19] VITALS: BP 128/70; PULSE 64; BMI 44.3
--- NOTE | 2025-03-05 14:19 | A.OFFVIS_ITS ---
Vital Signs 03/05/25 14:19 Height 5 ft 9 in Weight 299 lb 13.259 oz BMI 44.3 BP 128/70 Blood Pressure Location Lt brachial Position Sitting Pulse 64 Pulse Source Monitor Intake Visit Reasons: 6m follow up r/s 01-22-25 Allergies Penicillins (PENICILLINS) Allergy (Intermediate, Verified 12/10/24 13:26) TONGUE SWELLING,SKIN PEELING ON FINGERS Medication List - Last Reconciled 03/05/25 by Robert Hernandez MD apixaban (Eliquis) 5 mg PO BID flecainide 100 mg (2 x 50 mg) PO BID 90 days metoprolol succinate ER 75 mg (3 x 25 mg) PO DAILY HPI Comments Details: Vida returns for follow-up. To recall, she had atrial fibrillation ablation in 2011. In 2014, she had ERVIN/cardioversion and was on Multaq for a while till 2015. Then went back into atrial fibrillation. Then again performed cardioversion. Then we kept on flecainide and beta-blockers and she was doing well. Then had weight loss surgery and lost more than 100 lb. Then we stopped the flecainide as well as anticoagulation. Maintained on beta-blockers only. However, she gained a lot of weight back. In 2021, had another episode of atrial fibrillation with rapid rate. Then underwent ERVIN/cardioversion. Then resumed on beta-blockers and flecainide. Also on anticoagulation. Since last seen, she has gained some more weight back. She is feeling more palpitations. [facility] Medical History (Updated 12/10/24 @ 13:51 by NANNETTE Kerr) Uterine polyp Rosacea COVID-19 vaccine series completed Osteoarthritis History of positive PPD History of cardioversion A-fib Surgical History History of total left hip replacement History of cardiac radiofrequency ablation Hx of section Hx of colonoscopy Hx of gastric bypass History of total left knee replacement History of total right knee replacement Family History (Updated 12/10/24 @ 13:52 by NANNETTE Kerr) Father Alzheimer dementia Mother Atrial fibrillation Social History Household Members: Children Household Members Other:: son Housing: House Are you a primary nursing care attendant to a significant other at home: No Do you presently have visiting nurse or other home services: No Patient Tobacco Use Status: Former Tobacco user Second Hand Smoke Exposure: No service: No Current occupational status: employed 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 Reproductive History Menstrual Age of Menarche: 15 Review of Systems Const Denies weakness ENT Denies dizziness Card Denies chest pain, Denies chest pain with activity, Denies syncope, Denies rapid heart rate, Denies pedal edema, Denies edema, Denies leg edema, Denies lightheadedness, Reports palpitations, Reports dyspnea, Denies dyspnea on exertion and Denies orthopnea Resp Denies cough, Reports dyspnea and Denies dyspnea on exertion GI Denies hematochezia and Denies change in stool character Musc Denies abnormal gait, Denies muscle cramps, Denies muscle weakness, Denies numbness, Denies radiating pain into limb and Denies tingling Neuro Denies abnormal gait, Denies dizziness, Denies syncope, Denies numbness, Denies tingling and Denies weakness Endo Reports palpitations Physical Exam Vital Signs: Last Vital Signs Pulse 64 03/05/25 14:19 BP 128/70 03/05/25 14:19 BMI result Body Mass Index 44.3 Const General: comfortable and no acute distress Orientation/consciousness: patient oriented x3 HEENT Other: Unremarkable Head: Yes normal to inspection Neck Neck: Yes normal visual inspection Chest Chest palpation & inspection: normal inspection of the chest Resp Auscultation: clear to auscultation bilaterally Cardio Palpation: normal PMI Heart sounds: S1 normal heart sound present, S2 normal heart sound present, no gallops, no murmurs and no rubs GI Palpation (GI): Soft to palpation Back/Spine/Pelvis Other: unremarkable Skin General skin exam: no rashes or lesions noted Neuro General: patient oriented x3 Extrem General: Yes normal to inspection Psych Mental Status: mental status grossly normal Office Procedures EKG Details: EKG with underlying sinus rhythm at 64/Min; nonspecific ST-[place] changes; [place] [id number], Complete Assessment & Plan Assessment & Plan (1) PAF (paroxysmal atrial fibrillation): Code(s): I48.0 - Paroxysmal atrial fibrillation Category: Medical (2) Encounter for monitoring anti-arrhythmic therapy: Code(s): Z51.81 - Encounter for therapeutic drug level monitoring; Z79.899 - Other watcher automat long goods (current) drug therapy Category: Medical (3) Morbid obesity: Code(s): E66.01 - Morbid (severe) obesity due to excess calories Category: Medical Plan s/p atrial fibrillation ablation 2011. ERVIN/cardioversion 2014. Cardioversion 2015. ERVIN/cardioversion January/2022. Recent palpitations are most likely related to weight gain. Could be recurring atrial fibrillation versus atrial ectopy. With regard to medications, continue flecainide the same dose. With regard to beta-blockers, she can try taking an extra metoprolol 25 mg when she has palpitations to see if that helps. If so, then we can make the new dose as metoprolol ER 100 mg daily. Continue anticoagulation otherwise. We again discussed about ablation but she would like to try losing weight again. Ideally, that is the preferred approach. If she cannot lose weight and continues to have atrial fibrillation in spite of flecainide, then we will send her back to EP for another ablation. Cardiac testing- [id number] 60-65%; mild mitral regurgitation. Myocardial perfusion imaging -2021-likely normal perfusion. [id number] rhythm with an average of 64/Min. Rare PACs. Follow-up in 6 months. Discussion Notes I discussed with the patient the recurrence of atrial fibrillation and the potential for another ablation, reassuring her about advancements in the procedure. We reviewed her current medication regimen, considering adjustments to metoprolol to manage symptoms. The importance of weight management was emphasized, with a plan for gradual weight loss and consideration of GLP-1 receptor agonists. Patient was informed and verbally consented to the use of an ambient scribe for clinic note documentation during this visit. Orders: Orders Comprehensive Met. Panel Today I48.0 - Paroxysmal atrial fibrillation ECG 7 day holter monitor 6 Months I48.0 - Paroxysmal atrial fibrillation Complete Blood Count no Diff Today I48.0 - Paroxysmal atrial fibrillation Patient Instructions: - Monitor for palpitations and report any changes. - Follow the weight management plan, aiming for gradual weight loss. - Consider discussing GLP-1 receptor agonists with your healthcare provider. - Schedule follow-up appointments as advised. Coding Level of Care Code Est Pt Level 4 (78130) Complex EM visit Add On G2211 Diagnoses PAF (paroxysmal atrial fibrillation) I48.0 Encounter for monitoring anti-arrhythmic therapy Z51.81; Z79.899 Morbid obesity E66.01 CPT Codes EKG - CPT: 53366-[id number], Complete ([id number])
== END 2025-03-05 14:44 | disposition home or self-care (01) ==
LOC: HO.HCS 14:08
PROVIDERS: PCP Internal Medicine; Visit Provider Internal Medicine
DX: I48.0 Paroxysmal atrial fibrillation (principal); Z51.81 Encounter for therapeutic drug level monitoring; Z79.899 Other long term (current) drug therapy; E66.01 Morbid (severe) obesity due to excess calories
CPT/HCPCS: 93010; 99214; G2211

== ENCOUNTER → 2025-03-05 14:07 | Outpatient (BNVA) | payer MEDICARE, SELFPAY | PROVIDERS: PCP Internal Medicine; Visit Provider Internal Medicine | DX: I48.0 Paroxysmal atrial fibrillation (principal); E66.01 Morbid (severe) obesity due to excess calories; Z68.41 Body mass index [BMI] 40.0-44.9, adult; Z51.81 Encounter for therapeutic drug level monitoring; Z79.899 Other long term (current) drug therapy | CPT/HCPCS: 93005; 99212 ==

== ENCOUNTER 2025-04-05 10:22 | Outpatient (AMB) | payer MEDICARE, SELFPAY ==
[2025-04-05 10:26] VITALS: BP 132/78; PULSE 59; O2SAT 98; BMI 43.9
--- NOTE | 2025-04-05 10:26 | MHC.OFFVIS ---
Vital Signs 04/05/25 10:26 Height 5 ft 9 in Weight 297 lb BMI 43.9 BP 132/78 Blood Pressure Location Rt brachial Position Sitting Pulse 59 Pulse Source Pulse Oximeter Pulse Oximetry (%) 98 Oxygen Delivery Method Room Air Intake Visit Reasons: Obstructive sleep apnea Allergies Penicillins (PENICILLINS) Allergy (Intermediate, Verified 04/05/25 10:31) TONGUE SWELLING,SKIN PEELING ON FINGERS HPI HPI Obstructive sleep apnea: Details: 69-year-old lady, former minimal smoker greater than 20 years prior, now followed for mild obstructive sleep apnea on CPAP therapy. Patient states that she has been using her CPAP therapy with good control of her symptoms. [facility] Medical History (Updated 12/10/24 @ 13:51 by NANNETTE Kerr) Uterine polyp Rosacea COVID-19 vaccine series completed Osteoarthritis History of positive PPD History of cardioversion A-fib Surgical History History of total left hip replacement History of cardiac radiofrequency ablation Hx of section Hx of colonoscopy Hx of gastric bypass History of total left knee replacement History of total right knee replacement Family History (Updated 12/10/24 @ 13:52 by NANNETTE Kerr) Father Alzheimer dementia Mother Atrial fibrillation Social History Household Members: Children Household Members Other:: son Housing: House Are you a primary housekeeper caregiver to a significant other at home: No Do you presently have visiting nurse or other home services: No Patient Tobacco Use Status: Former Tobacco user Second Hand Smoke Exposure: No service: No Current occupational status: employed 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 Reproductive History Menstrual Age of Menarche: 15 Review of Systems Const Denies daytime sleepiness, Denies excessive sweating, Denies fatigue, Denies fever(s), Denies lethargy, Denies malaise, Denies night sweats, Denies snoring and Denies weight loss Eyes Denies blurry vision and Denies itchy eyes ENT Denies nasal congestion, Denies post nasal drip, Denies sinus pain, Denies sinus pressure and Denies other ( Thrush) Card Denies chest pain, Denies pedal edema, Denies dyspnea, Denies orthopnea and Denies paroxysmal nocturnal dyspnea Resp Denies cough, Denies hemoptysis, Denies excessive phlegm production, Denies dyspnea, Denies snoring and Denies wheezing GI Denies abdominal pain and Denies heartburn Musc Denies myalgias, Denies arthralgias and Denies joint swelling Skin/Breast Denies rash Neuro Denies memory loss and Denies seizure-like activity Psych Denies abnormal sleep pattern, Denies anxiety and Denies memory loss Endo Denies excessive sweating, Denies fatigue and Denies heat intolerance Bob/Lymph Denies easy bruising Aller/Immun Denies itchy eyes, Denies seasonal rhinorrhea and Denies wheezing Physical Exam Vital Signs: Last Vital Signs Pulse 59 04/05/25 10:26 BP 132/78 04/05/25 10:26 Pulse Ox 98 04/05/25 10:26 Oxygen Delivery Method Room Air 04/05/25 10:26 BMI result Body Mass Index 43.9 Const General: no acute distress and alert Nutritional Appearance: obese Orientation/consciousness: Other orientation findings ( oriented) HEENT Head: Yes atraumatic Eyes General: appearance normal, both eyes and all related structures Sclerae: sclerae normal EOM: EOMs intact bilaterally Neck Neck: Yes supple Lymphatic: no lymphadenopathy noted Resp Effort & Inspection: normal respiratory effort and no use of accessory muscles Auscultation: clear to auscultation bilaterally Cardio Rate: regular rate Rhythm: regular rhythm Heart sounds: no gallops, no murmurs and no rubs Skin General skin exam: other ( warm) Extrem General: No clubbing, No cyanosis and No edema Assessment & Plan Assessment & Plan (1) CIPRIANO (obstructive sleep apnea): Comment: On CPAP Code(s): G47.33 - Obstructive sleep apnea (adult) (pediatric) Category: Medical Plan: Therapy and compliance report reviewed - patient is benefitting from and is compliant with noninvasive positive pressure ventilation treatment, using it greater than 70% of the time, more than 4 hours per night. Continue current CPAP therapy. Coding Level of Care Code Est Pt Level 3 (27784) Diagnoses CIPRIANO (obstructive sleep apnea) G47.33
== END 2025-04-05 10:39 | disposition home or self-care (01) ==
LOC: HO.HPS 10:23
PROVIDERS: PCP Internal Medicine; Visit Provider Internal Medicine Pulmonary Disease
DX: G47.33 Obstructive sleep apnea (adult) (pediatric) (principal)
CPT/HCPCS: 99213

== ENCOUNTER → 2025-04-05 10:22 | Outpatient (BNVA) | payer MEDICARE, SELFPAY | PROVIDERS: PCP Internal Medicine; Visit Provider Internal Medicine Pulmonary Disease | DX: G47.33 Obstructive sleep apnea (adult) (pediatric) (principal); Z99.89 Dependence on other enabling machines and devices; I48.91 Unspecified atrial fibrillation | CPT/HCPCS: 99212 ==

== ENCOUNTER 2025-06-10 08:18 | Outpatient (AMB) | payer MEDICARE, SELFPAY ==
[2025-06-10 08:22] VITALS: BP 128/82; PULSE 59; TEMP 36.4; O2SAT 98; BMI 44.6
--- NOTE | 2025-06-10 08:22 | MHC.PC.OV ---
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 Required: No Accompanied by: Self / Same As Patient Allergies Penicillins (PENICILLINS) Allergy (Intermediate, Verified 06/10/25 08:22) TONGUE SWELLING,SKIN PEELING ON FINGERS Tobacco use date assessed: 06/10/25 Fall risk assessment: No Falls in past year Last assessed Fall Risk: 06/10/25 Dental Screening Dental Screen Date: 06/10/25 Did you have a dental visit in the last 12 months?: Yes Did you have a dental problem in the last 6 months where you did not have access to dental care?: No HPI HPI Comments History of Present Illness Details 69-year-old female with history of paroxysmal atrial fibrillation, CIPRIANO compliant with CPAP, osteoarthritis, hypertension presents to the office today for management of chronic conditions. Hypertension-blood pressure 128/82 in the office. Compliant with Toprol 75 mg daily Paroxysmal atrial fibrillation-s/p cardiac ablation 2014. Continues on flecainide 100 mg twice daily and Eliquis 5 mg twice daily. Following with Dr. Hernandez cardiology CIPRIANO- compliant with CPAP. Follows with Dr. Francisco. former smoker- quit 20 years ago occ etoh no drugs Lives with home and son. Retired Concerns: Weight management. BMI 44.6. Struggles with willpower with diet compliance. h/o gastric sleeve 6 years ago. Lost to follow up. Difficult with mobility following joint replacements. Has met with nutrition in the past and feels confident she knows what to eat. Has been working on weight management. Exercises with walking. No hx of pancreatitis or fh of thyroid cancer. Bilateral stye lower lids- was not called for ophtho. Present for many months. She does use warm compresses Health maintenance: Last screening mammogram 10/2023, overdue. Last mammo negative for evidence of malignancy. Last DEXA scan 10/2023 showing normal bone density Due for colonoscopy ROS: See HPI EXAM: Constitutional - Awake and Alert, No apparent distress Eyes - PERRL. External hordeolum of the bilateral lower lids. No drainage or conjunctival injection Cardiovascular - S1S2, RRR, No edema Respiratory - Normal lung expansion, Normal respiratory effort, No respiratory distress, CTA bilaterally Extremities - no calf tenderness bilaterally, no swelling Skin - Warm/Dry Neurological - Alert & oriented x3 Psychological - Appropriate affect [facility] Medical History Uterine polyp Rosacea COVID-19 vaccine series completed Osteoarthritis History of positive PPD History of cardioversion A-fib Surgical History History of total left hip replacement History of cardiac radiofrequency ablation Hx of section Hx of colonoscopy Hx of gastric bypass History of total left knee replacement History of total right knee replacement Family History (Updated 06/10/25 @ 08:30 by Janna Watt MA) Father Alzheimer dementia Mother Atrial fibrillation Social History Household Members: Children Household Members Other:: son Housing: House Are you a primary sub acute care nurse to a significant other at home: No Do you presently have visiting nurse or other home services: No Patient Tobacco Use Status: Former Tobacco user e-Cigarette/Vaping Use: Currently Using Second Hand Smoke Exposure: No service: No Current occupational status: retired 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 1. Little interest or pleasure in doing things: not at all 2. Feeling down, depressed, or hopeless: not at all 3. Trouble falling or staying asleep, or sleeping too much: not at all 4. Feeling tired or having little energy: not at all 5. Poor appetite or overeating: not at all 6. Feeling bad about yourself - or that you are a failure or have let yourself or your family down: not at all 7. Trouble concentrating on things, such as reading the newspaper or watching television: not at all 8. Moving or speaking so slowly that other people could have noticed. Or the opposite - being so fidgety or restless that you have been moving around a lot more than usual: not at all 9. Thoughts that you would be better off or of hurting yourself in some way: not at all Total score: 0 Depression Screening Interpretation: Negative Depression Screening Done: Yes Source: Developed by Drs. Marco Antonio Hicks, Rosa Teran, Wilfredo Gould and colleagues, with an educational noe from [email or web address]. Thrive Questionnaire Date Thrive assessed: 06/10/25 I am a: Patient Within the past 12 months, did the food you bought not last and you didn't have the money to get more?: Never true Within the past 12 months, did you worry whether your food would run out before you got money to buy more?: Never true Do you have trouble paying for medicines?: No Do you have trouble getting transportation to medical appointments?: No Do you have trouble paying your heating and electricity bill?: No Do you have trouble taking care of your child, family member or friend?: No Do you have trouble with day-to-day activities such as bathing, preparing meals, shopping, managing finances, etc.?: No Are you currently unemployed and looking for a job?: No Are you interested in more education?: No THRIVE Score: 0 AUDIT C Alcohol Use Questionnaire (AUDIT-C) 1. How often do you have a drink containing alcohol?: Monthly or less 2. How many drinks containing alcohol do you have on a typical day when you are drinking?: 1 or 2 3. How often do you have six or more drinks on one occasion?: Less than monthly Total Score: 2 ARISTEO-7 AMB Questionnaire ARISTEO-7 Date ARISTEO - 7 assessed: 06/10/25 Feeling nervous, anxious, or on edge: 0 = Not at all Not being able to stop or control worryin = Not at all Worrying too much about different things: 0 = Not at all Trouble relaxin = Not at all Being so restless that it is hard to sit still: 0 = Not at all Becoming easily annoyed or irritable: 0 = Not at all Feeling afraid as if something awful might happen: 0 = Not at all Total ARISTEO-7 score (0-4 normal; 5-9 mild; 10-14 moderate; 15-21 severe): 0 Source: Developed by Rosa Page, Wilfredo Gould and colleagues, with an educational noe from [email or web address]. Physical exam (Primary Care) Vital Signs: Last Vital Signs Temp 97.5 F 06/10/25 08:22 Pulse 59 06/10/25 08:22 BP 128/82 06/10/25 08:22 Pulse Ox 98 06/10/25 08:22 Oxygen Delivery Method Room Air 06/10/25 08:22 BMI result Body Mass Index 44.6 Tobacco/Smoking Status: Tobacco use Status Tobacco use date assessed 06/10/25 06/10/25 08:25 Patient Tobacco Use Status Former Tobacco user 06/10/25 08:25 e-Cigarette/Vaping Use Currently Using 06/10/25 08:25 PHQ-9: PHQ-9 Score PHQ-9: Total score 0 06/10/25 08:30 Depression Screening Interpretation: Negative Thrive Assessment: Date of Thrive Assessment Date Thrive assessed 06/10/25 06/10/25 08:25 Coding Level of Care Code Est Pt Level 4 (05810) Add On Problem Visit Only Diagnoses PAF (paroxysmal atrial fibrillation) I48.0 CIPRIANO (obstructive sleep apnea) G47.33 Morbid obesity E66.01 Hordeolum H00.019 Assessment & Plan Assessment & Plan (1) PAF (paroxysmal atrial fibrillation): Code(s): I48.0 - Paroxysmal atrial fibrillation Category: Medical Plan: Rate controlled. Continue flecainide and metoprolol. Continue Eliquis for anticoagulation. Follow-up with Cardiology (2) CIPRIANO (obstructive sleep apnea): Comment: On CPAP Code(s): G47.33 - Obstructive sleep apnea (adult) (pediatric) Category: Medical Plan: CPAP (3) Morbid obesity: Code(s): E66.01 - Morbid (severe) obesity due to excess calories Category: Medical Plan: Interested in GLP 1 medications for weight loss. No contraindications. Does have both morbid obesity with BMI 44.6 as well as obstructive sleep apnea. She has reached out to her insurance company beginning on 06/27/2025 which reports GLP 1 medication should be approved. Recommend healthy diet high in protein, fruits, vegetables. Limit intake of refined sugars and simple carbohydrates as well as highly processed foods. Recommend weight-bearing exercise. (4) Hordeolum: Code(s): H00.019 - Hordeolum externum unspecified eye, unspecified eyelid Category: Medical Plan: Chronic. Unresponsive to conservative measures. Referral placed to ophthomology. Continue warm compresses and avoidance of make up Plan Follow-up in the office in 6 months. Labs ordered. Referred to gastroenterology for colonoscopy Orders: Orders Basic Metabolic Panel Today E66.01 - Morbid (severe) obesity due to excess calories, G47.33 - Obstructive sleep apnea (adult) (pediatric), I48.0 - Paroxysmal atrial fibrillation Liver Panel Today E66.01 - Morbid (severe) obesity due to excess calories, G47.33 - Obstructive sleep apnea (adult) (pediatric), I48.0 - Paroxysmal atrial fibrillation TSH reflex Free T4 Today E66.01 - Morbid (severe) obesity due to excess calories, G47.33 - Obstructive sleep apnea (adult) (pediatric), I48.0 - Paroxysmal atrial fibrillation Lipid Panel Today E66.01 - Morbid (severe) obesity due to excess calories, G47.33 - Obstructive sleep apnea (adult) (pediatric), I48.0 - Paroxysmal atrial fibrillation Hemoglobin A1c Today E66.01 - Morbid (severe) obesity due to excess calories, G47.33 - Obstructive sleep apnea (adult) (pediatric), I48.0 - Paroxysmal atrial fibrillation Vitamin D 25-OH Total Today E66.01 - Morbid (severe) obesity due to excess calories, G47.33 - Obstructive sleep apnea (adult) (pediatric), I48.0 - Paroxysmal atrial fibrillation Referrals Gastroenterology Referral Z12.11 - Encounter for screening for malignant neoplasm of colon Ophthalmology Referral H00.019 - Hordeolum externum unspecified eye, unspecified eyelid
== END 2025-06-10 08:59 | disposition home or self-care (01) ==
LOC: HO.HMCHD 08:18
PROVIDERS: PCP Internal Medicine; Visit Provider Physician Assistant
DX: I48.0 Paroxysmal atrial fibrillation (principal); G47.33 Obstructive sleep apnea (adult) (pediatric); E66.01 Morbid (severe) obesity due to excess calories; H00.019 Hordeolum externum unspecified eye, unspecified eyelid

== ENCOUNTER → 2025-06-10 08:18 | Outpatient (BNVA) | payer MEDICARE, SELFPAY | PROVIDERS: PCP Internal Medicine; Visit Provider Physician Assistant | DX: I48.0 Paroxysmal atrial fibrillation (principal); G47.33 Obstructive sleep apnea (adult) (pediatric); Z99.89 Dependence on other enabling machines and devices; E66.01 Morbid (severe) obesity due to excess calories; Z68.41 Body mass index [BMI] 40.0-44.9, adult; Z98.84 Bariatric surgery status; M81.0 Age-related osteoporosis without current pathological fracture; Z87.891 Personal history of nicotine dependence; Z79.01 Long term (current) use of anticoagulants; Z13.31 Encounter for screening for depression; Z13.39 Encounter for screening examination for other mental health and behavioral disorders | CPT/HCPCS: 96127; 99212 ==